=== PATIENT | female | born 1955 | race Caucasian/White ===

== ENCOUNTER → 2017-03-01 | Outpatient (CLI) | payer OTHER ==
[2017-03-01 08:46] LABS: Basophils % (A) 1 %; CH 30.8; CHCM 33.6; Eosinophils # (A) 0.1 k/uL (0-0.7); Eosinophils % (A) 3 %; HCT 45.1 % (34.0-46.0); HDW 2.52; HGB 14.9 gm/dL (11.4-16.0); Luc # (Auto) 0.11; Luc % (Auto) 3; Lymphocytes # (A) 1.3 k/uL (1.0-4.8); Lymphocytes % (A) 27 %; MCH 30.5 pg (25.0-35.0); MCV 92.4 fL (80.0-100.0); Monocytes # (A) 0.3 k/uL (0-1.0); Monocytes % (A) 7 %; Neutrophils # (A) 2.8 k/uL (1.3-7.7); Neutrophils % (A) 60 %; RBC 4.88 m/uL (3.80-5.40); RDW 13.8 % (11.5-15.5); WBC 4.6 k/uL (3.8-10.6); WBC (Perox) 4.48
[2017-03-01 09:09] LABS: ALT 46 U/L (9-52); AST 28 U/L (14-36); Alkaline Phosphatase 59 U/L (38-126); Anion Gap 12 mmol/L; Blood Urea Nitrogen 21 mg/dL (7-17); Calcium 9.9 mg/dL (8.4-10.2); Carbon Dioxide 29 mmol/L (22-30); Chloride 102 mmol/L (98-107); Cholesterol 180 mg/dL (<200); Glucose 94 mg/dL (74-99); HDL Cholesterol 65 mg/dL (40-60); Non-African American GFR(MDRD) >60 (>60 ml/min/1.73 sqM); Potassium 4.6 mmol/L (3.5-5.1); Sodium 143 mmol/L (137-145); Total Bilirubin 0.6 mg/dL (0.2-1.3); Total Protein 7.8 g/dL (6.3-8.2)
== END | disposition home or self-care (01) ==
LOC: LABWHC1 08:15
PROVIDERS: ATTEND Nurse Practitioner Primary Care
DX: Z00.00 Encounter for general adult medical examination without abnormal findings (principal)
CPT/HCPCS: 36415; 80053; 80061; 82306; 84443; 85025

== ENCOUNTER → 2017-06-07 | Outpatient (CLI) | payer OTHER ==
--- NOTE | 2017-06-08 09:08 | MM ---
Reason for exam: screening (asymptomatic). Last mammogram was performed 1 year and 4 months ago. History: Patient is postmenopausal. Family history of breast cancer in maternal grandmother. Physical Findings: A clinical breast exam by your physician is recommended on an annual basis and results should be correlated with mammographic findings. MG Screening Mammo w CAD Bilateral CC and MLO view(s) were taken. Prior study comparison: February 08, 2016, bilateral MG 3d screening mammo w/cad. December 10, 2014, bilateral MG screening mammo w CAD. The breast tissue is heterogeneously dense. This may lower the sensitivity of mammography. Finding: There are typically benign round calcifications. No significant changes in finding since December 10, 2014 and February 08, 2016. ASSESSMENT: Benign, BI-RAD 2 RECOMMENDATION: Routine screening mammogram of both breasts in 1 year.
== END | disposition home or self-care (01) ==
LOC: RADMAMWWP 13:44
PROVIDERS: ATTEND Obstetrics & Gynecology
DX: Z12.31 Encounter for screening mammogram for malignant neoplasm of breast (principal); Z80.3 Family history of malignant neoplasm of breast

== ENCOUNTER → 2018-07-09 | Outpatient (CLI) | payer OTHER ==
--- NOTE | 2018-07-12 17:08 | MM ---
Reason for exam: screening (asymptomatic). Last mammogram was performed 1 year and 1 month ago. History: Patient is postmenopausal. Family history of breast cancer in maternal grandmother. MG Screening Mammo w CAD Bilateral CC and MLO view(s) were taken. Prior study comparison: June 07, 2017, bilateral MG screening mammo w CAD. February 08, 2016, bilateral MG 3d screening mammo w/cad. The breast tissue is heterogeneously dense. This may lower the sensitivity of mammography. There are benign-appearing bilateral breast calcifications. Chronic nodularity in the left breast. No significant changes when compared with prior studies. ASSESSMENT: Benign, BI-RAD 2 RECOMMENDATION: Routine screening mammogram of both breasts in 1 year.
== END ==
LOC: RADMAMWWP 13:29
PROVIDERS: ATTEND Obstetrics & Gynecology
DX: Z12.31 Encounter for screening mammogram for malignant neoplasm of breast (principal); Z80.3 Family history of malignant neoplasm of breast
CPT/HCPCS: 77067

== ENCOUNTER → 2018-08-06 | Outpatient (CLI) | payer OTHER ==
[2018-08-06 19:25] LABS: Albumin 4.3 g/dL (3.80-4.90); Albumin/Globulin Ratio 2.05 (1.60-3.17); Anion Gap 6.2 mmol/L (4.00-12.00); Calcium 9.4 mg/dL (8.7-10.3); Carbon Dioxide 31.8 mmol/L (21.6-31.8); Globulin 2.1 g/dL (1.6-3.3); LDL Cholesterol,Calculated 78.4 mg/dL (0.0-131.0); Potassium 4.5 mmol/L (3.5-5.5); Total Bilirubin 0.6 mg/dL (0.2-1.2); Total Protein 6.4 g/dL (6.2-8.2); VLDL Calculation 21.6 mg/dL (5.00-40.00)
== END | disposition home or self-care (01) ==
LOC: LABWHC1 12:03
PROVIDERS: ATTEND Internal Medicine
DX: I10 Essential (primary) hypertension (principal)
CPT/HCPCS: 36415; 80053; 80061; 84443

== ENCOUNTER → 2019-07-31 | Outpatient (CLI) | payer OTHER ==
--- NOTE | 2019-07-31 15:51 | BD ---
EXAMINATION TYPE: Axial Bone Density DATE OF EXAM: 07/31/2019 COMPARISON: 12.10.2014 CLINICAL HISTORY: 64 YR OLD FEMALE....ICD-10 CODE: Z78.0 POST MENOPAUSAL Height: 64.25 Weight: 190 FRAX RISK QUESTIONS: History of Fracture in Adulthood: yes RISK FACTORS HISTORY OF: Active: yes Diet low in dairy products/other sources of calcium: yes Postmenopausal woman: YES, AT AGE 53 YRS OLD Hyperparathyroidism: no Adrenal Insufficiency: no MEDICATIONS: Additional Medications: BP MEDS, BABY ASPIRIN, Additional History: HYPERTENSION EXAM MEASUREMENTS: Bone mineral densitometry was performed using the [employer]. Bone mineral density as measured about the Lumbar spine is: ----- L1-L4(G/cm2): 1.095 T Score Values are as follows: ----- L1: 0.1 ----- L2: -1.0 ----- L3: -1.5 ----- L4: -0.5 ----- L1-L4: -0.7 Bone mineral density has: Increased 1.6% since study of: 12.10.2014 Bone mineral density about the R hip (g/cm2): 0.972 Bone mineral density about the L hip (g/cm2): 1.041 T Score values are as follows: -----R Neck: -0.5 -----L Neck: -0.5 -----R Total: -0.3 -----L Total: 0.3 Bone mineral density has: Decreased -3.7% since study of: 12.10.2014 FRAX%s: THERE IS A 11.2% CHANCE FOR A MAJOR OSTEOPOROTIC FX AND A 0.5% FOR HIP.....PROBABILITY FOR FX IN 10 YRS TIME IMPRESSION: Osteopenia (T Score between -2.5 and -1). There is slightly increased risk of fracture and the patient may be considered for treatment. Re-Screen 2-5 years. NOTE: T-SCORE=SD OF THE YOUNG ADULT MEAN.
--- NOTE | 2019-08-01 14:28 | MM ---
Reason for exam: screening (asymptomatic). Last mammogram was performed 1 year and 1 month ago. History: Patient is postmenopausal. Family history of breast cancer in maternal grandmother. Physical Findings: A clinical breast exam by your physician is recommended on an annual basis and results should be correlated with mammographic findings. MG 3D Screening Mammo W/Cad Bilateral CC and MLO view(s) were taken. Prior study comparison: July 09, 2018, bilateral MG screening mammo w CAD. June 07, 2017, bilateral MG screening mammo w CAD. The breast tissue is heterogeneously dense. This may lower the sensitivity of mammography. Stable benign calcifications. There is no discrete abnormality. No significant changes when compared with prior studies. ASSESSMENT: Benign, BI-RAD 2 RECOMMENDATION: Routine screening mammogram of both breasts in 1 year.
== END | disposition home or self-care (01) ==
LOC: RADMAMWWP 13:49
PROVIDERS: ATTEND Obstetrics & Gynecology
DX: Z12.31 Encounter for screening mammogram for malignant neoplasm of breast (principal); M85.80 Other specified disorders of bone density and structure, unspecified site; Z80.3 Family history of malignant neoplasm of breast; Z78.0 Asymptomatic menopausal state
CPT/HCPCS: 77063; 77067; 77080

== ENCOUNTER → 2019-11-07 | Outpatient (CLI) | payer OTHER ==
[2019-11-07 11:35] LABS: Basophils % (A) 1 %; Eosinophils # (A) 0.1 k/uL (0-0.7); Eosinophils % (A) 3 %; HCT 44.2 % (34.0-46.0); HGB 14.2 gm/dL (11.4-16.0); Lymphocytes # (A) 1.2 k/uL (1.0-4.8); Lymphocytes % (A) 33 %; MCH 29.6 pg (25.0-35.0); MCHC 32.2 g/dL (31.0-37.0); MCV 91.8 fL (80.0-100.0); Mean Platelet Volume 7.9; Monocytes # (A) 0.3 k/uL (0-1.0); Monocytes % (A) 8 %; Neutrophils % (A) 55 %; Platelet Count 240 k/uL (150-450); RBC 4.81 m/uL (3.80-5.40); RDW 12.9 % (11.5-15.5); WBC 3.7 k/uL (3.8-10.6)
[2019-11-07 17:28] LABS: % Iron Saturation 27.01 (12.00-45.00); African American GFR (CKD) 90.9 (60.0-200.0); Albumin 4.6 g/dL (3.80-4.90); Anion Gap 14.7 mmol/L (4.00-12.00); BUN/Creat Ratio 21.25 Ratio (12.00-20.00); Calcium 9.6 mg/dL (8.7-10.3); Carbon Dioxide 25.3 mmol/L (21.6-31.8); Chol/HDL Ratio 2.93; Globulin 2.3 g/dL (1.6-3.3); LDL Cholesterol,Calculated 81.2 mg/dL (0.0-131.0); Non-African American GFR(CKD) 78.5 (60.0-200.0); Potassium 4.2 mmol/L (3.5-5.5); Total Bilirubin 0.7 mg/dL (0.3-1.2); Total Protein 6.9 g/dL (6.2-8.2); VLDL Calculation 30.8 mg/dL (5.00-40.00)
[2019-11-07 17:37] LABS: Ferritin 42.6 ng/mL (10.0-291.0)
[2019-11-07 21:13] LABS: Hemoglobin A1C 5.7 % (4.0-6.0)
== END | disposition home or self-care (01) ==
LOC: LABWHC1 10:29
PROVIDERS: ATTEND Family Medicine
DX: Z00.00 Encounter for general adult medical examination without abnormal findings (principal); Z11.59 Encounter for screening for other viral diseases; G25.81 Restless legs syndrome
CPT/HCPCS: 36415; 80053; 80061; 82607; 82728; 83036; 83540; 83550; 83735; 84443; 85025; 86803

== ENCOUNTER → 2020-10-01 | Outpatient (CLI) | payer OTHER ==
--- NOTE | 2020-10-05 14:06 | MM ---
Reason for exam: screening (asymptomatic). Last mammogram was performed 1 year and 2 months ago. History: Patient is postmenopausal. Family history of breast cancer in maternal grandmother. Physical Findings: A clinical breast exam by your physician is recommended on an annual basis and results should be correlated with mammographic findings. MG 3D Screening Mammo W/Cad Bilateral CC and MLO view(s) were taken. Prior study comparison: July 31, 2019, bilateral MG 3d screening mammo w/cad. July 09, 2018, bilateral MG screening mammo w CAD. There are scattered fibroglandular densities. There is chronic nodularity in the right breast. Stable posterior grouped calcifications on the right breast. No significant changes when compared with prior studies. ASSESSMENT: Benign, BI-RAD 2 RECOMMENDATION: Routine screening mammogram of both breasts in 1 year.
== END | disposition home or self-care (01) ==
LOC: RADMAMWWP 15:01
PROVIDERS: ATTEND Obstetrics & Gynecology
DX: Z12.31 Encounter for screening mammogram for malignant neoplasm of breast (principal); Z80.3 Family history of malignant neoplasm of breast
CPT/HCPCS: 77063; 77067

== ENCOUNTER → 2021-10-25 | Outpatient (CLI) | payer MEDICARE ==
--- NOTE | 2021-10-25 14:28 | BD ---
EXAMINATION TYPE: Axial Bone Density DATE OF EXAM: 10/25/2021 COMPARISON: 07-31-2019 CLINICAL HISTORY: 66 years year old Female. ICD-10 CODE: M81.0 AGE RELATED OSTEOPOROSIS Height: 64IN Weight: 198 FRAX RISK QUESTIONS: History of Fracture in Adulthood: RT ANKLE FX Secondary Osteoporosis: 3. Menopause before 45: 53 RISK FACTORS HISTORY OF: Family History of Osteoporosis: YES MOM Active: YES Diet low in dairy products/other sources of calcium: YES Postmenopausal woman: 53 MEDICATIONS: Additional Medications: BP MEDS, VITAMIN D EXAM MEASUREMENTS: Bone mineral densitometry was performed using the [employer] System. Bone mineral density as measured about the Lumbar spine is: ----- L1-L4(G/cm2): 1.060 T Score Values are as follows: ----- L1: -1.3 ----- L2: -0.6 ----- L3: -1.4 ----- L4: -0.9 ----- L1-L4: -1.0 Bone mineral density has: Increased 0.5% since study of: 07-31-2019 Bone mineral density about the R hip (g/cm2): 0.925 Bone mineral density about the L hip (g/cm2): 0.981 T Score values are as follows: -----R Neck: -0.8 -----L Neck: -0.4 -----R Total: -0.2 -----L Total: -0.2 Bone mineral density has: Decreased -2.6% since study of: 07-31-2019 FRAX%s: The graph provided illustrates a 12.1% chance for a major osteoporotic fx and a 0.7% chance f or the hips probability for fx in 10 years time. IMPRESSION: Normal (Values between +1 and -1 indicate normal bone mass). Consider repeating this study in 5 year s or sooner if there is some new clinical indication. NOTE: T-SCORE=SD OF THE YOUNG ADULT MEAN.
--- NOTE | 2021-10-26 11:39 | MM ---
Reason for exam: screening (asymptomatic). Last mammogram was performed 1 year and 1 month ago. History: Patient is postmenopausal. Family history of breast cancer in maternal grandmother. Physical Findings: A clinical breast exam by your physician is recommended on an annual basis and results should be correlated with mammographic findings. MG 3D Screening Mammo W/Cad Bilateral CC and MLO view(s) were taken. Prior study comparison: October 01, 2020, bilateral MG 3d screening mammo w/cad. July 31, 2019, bilateral MG 3d screening mammo w/cad. Benign appearing bilateral calcifications. No significant changes when compared with prior studies. ASSESSMENT: Benign, BI-RAD 2 RECOMMENDATION: Routine screening mammogram of both breasts in 1 year.
== END | disposition home or self-care (01) ==
LOC: RADMAMWWP 12:37
PROVIDERS: ATTEND Family Medicine
DX: Z12.31 Encounter for screening mammogram for malignant neoplasm of breast (principal); M81.0 Age-related osteoporosis without current pathological fracture
CPT/HCPCS: 77063; 77067; 77080

== ENCOUNTER → 2022-10-26 | Outpatient (CLI) | payer MEDICARE ==
--- NOTE | 2022-10-26 14:01 | US ---
EXAMINATION TYPE: US transvaginal DATE OF EXAM: 10/26/2022 COMPARISON: NONE CLINICAL INDICATION: Female, 67 years old with history of R68.89 OTHER GENERAL SYMPTOMS AND SIGNS; en larged uterus TECHNIQUE: Transvaginal (TV EXAM MEASUREMENTS: Uterus: 6.4 x 3.5 x 4.2 cm Endometrial Stripe: .5 cm Left Ovary: 2.1 x 1.2 x 1.2 cm Multiple transvaginal grayscale and color Doppler ultrasound images of the pelvis were obtained. 1. Uterus: Anteverted echogenic area seen measuring 2.8 x 1.9 cm. 2. Endometrium: wnl 3. Right Ovary: Obscured by overlying bowel gas 4. Left Ovary: Anechoic area seen 1.4 x 1.2 x 1.0 cm. 5. Bilateral Adnexa: wnl 6. Posterior cul-de-sac: wnl Anteverted uterus with normal-appearing endometrium. Echogenic area within the uterus. Represent a ca lcified fibroid. Right ovary is a tear by overlying bowel gas. Left ovarian simple appearing cyst wit hout internal color flow. No free fluid. IMPRESSION: 1. No acute pelvic process. 2. Left ovarian simple appearing cyst measuring up to 1.4 cm. Follow-up ultrasound in one year is rec ommended. 3. Calcified fibroid changes of the uterus.
== END ==
LOC: RADUSWWP 12:52
PROVIDERS: ATTEND Obstetrics & Gynecology
DX: D25.9 Leiomyoma of uterus, unspecified (principal); N85.8 Other specified noninflammatory disorders of uterus
CPT/HCPCS: 76830

== ENCOUNTER → 2022-10-26 | Outpatient (CLI) | payer MEDICARE ==
--- NOTE | 2022-10-27 19:22 | MM ---
Reason for Exam: Screening (asymptomatic). Last screening mammogram was performed 12 month(s) ago. Patient History: Menarche at age 11. First Full-Term at age 27. Postmenopausal. Maternal grandmother had breast cancer, age 70. Risk Values: Marilu 5 year model risk: 2.0%. NCI Lifetime model risk: 7.3%. Prior Study Comparison: 07/31/2019 Bilateral Screening Mammogram, [facility]. 10/01/2020 Bilateral Screening Mammogram, [facility]. 10/25/2021 Bilateral Screening Mammogram, [facility]. Tissue Density: There are scattered fibroglandular densities. Findings: Analyzed By CAD. There is no suspicious group of microcalcifications or new suspicious mass in either breast. Overall Assessment: Benign, BI-RAD 2 Management: Screening Mammogram of both breasts in 1 year. . Patient should continue monthly self-breast exams. A clinical breast exam by your physician is recommended on an annual basis. This exam should not preclude additional follow-up of suspicious palpable abnormalities. Note on Marilu scores and lifetime risk: 1. A Marilu score greater than 3% is considered moderate risk. If this is the case, consider specialist referral to assess eligibility for a risk reducing agent. 2. If overall lifetime risk for the development of breast cancer is 20% or higher, the patient may qualify for future screening with alternating mammogram and breast MRI. Electronically signed and approved by: Sierra Mina M.D. Radiologist
== END | disposition home or self-care (01) ==
LOC: RADMAMWWP 12:53
PROVIDERS: ATTEND Family Medicine
DX: Z12.31 Encounter for screening mammogram for malignant neoplasm of breast (principal); Z78.0 Asymptomatic menopausal state; Z80.3 Family history of malignant neoplasm of breast
CPT/HCPCS: 77063; 77067

== ENCOUNTER 2023-05-13 09:12 | Emergency (ER) | payer MEDICARE ==
[2023-05-13 09:54] VITALS: TEMP 98.3
[2023-05-13 10:18] LABS: Basophils % (A) 0 %; Eosinophils # (A) 0.1 k/uL (0-0.7); Eosinophils % (A) 1 %; HCT 42.8 % (34.0-46.0); HGB 13.9 gm/dL (11.4-16.0); Lymphocytes % (A) 8 %; MCH 29.6 pg (25.0-35.0); MCHC 32.4 g/dL (31.0-37.0); MCV 91.3 fL (80.0-100.0); Monocytes # (A) 0.5 k/uL (0-1.0); Monocytes % (A) 4 %; Neutrophils # (A) 9.7 k/uL (1.3-7.7); Neutrophils % (A) 86 %; Platelet Count 447 k/uL (150-450); RBC 4.69 m/uL (3.80-5.40); RDW 13.4 % (11.5-15.5); WBC 11.3 k/uL (3.8-10.6)
[2023-05-13 10:35] LABS: ALT 33 U/L (4-34); AST 34 U/L (14-36); African American GFR (CKD) >90 (>60 ml/min/1.73 sqM); Albumin 3.9 g/dL (3.5-5.0); Alkaline Phosphatase 65 U/L (38-126); Amylase 35 U/L (30-110); Anion Gap 12 mmol/L; Blood Urea Nitrogen 17 mg/dL (7-17); Calcium 9.3 mg/dL (8.4-10.2); Carbon Dioxide 25 mmol/L (22-30); Chloride 101 mmol/L (98-107); Glucose 104 mg/dL (74-99); Lipase 67 U/L (23-300); Non-African American GFR(CKD) >90 (>60 ml/min/1.73 sqM); Potassium 4.6 mmol/L (3.5-5.1); Sodium 138 mmol/L (137-145); Total Bilirubin 0.6 mg/dL (0.2-1.3); Total Protein 6.9 g/dL (6.3-8.2)
[2023-05-13 10:37] LABS: Appearance,Urine Clear (Clear); Bilirubin,Urine Negative (Negative); Blood,Urine Negative (Negative); Color,Urine Yellow; Glucose,Urine (UA) Negative (Negative); Ketones,Urine 1+ (Negative); Leukocyte Esterase,Urine Negative (Negative); Mucus,Urine Many /hpf; Nitrite,Urine Negative (Negative); Protein,Urine 1+ (Negative); RBC,Urine 1 /hpf (0-5); Squamous Epithelial Cell,Urine 1 /hpf (0-4); Urobilinogen,Urine <2.0 mg/dL (<2.0); WBC,Urine 1 /hpf (0-5)
--- NOTE | 2023-05-13 11:35 | ED ---
Abdominal Pain HPI - General Source: patient, RN notes reviewed Mode of arrival: ambulatory Limitations: no limitations <Laurel Krishna - Last Filed: 05/13/23 11:38> - General Source: patient Mode of arrival: ambulatory Limitations: no limitations <Austin Wright - Last Filed: 05/13/23 16:17> - General Chief Complaint: Abdominal Pain Stated Complaint: abd tenderness-sent by PCP Time Seen by Provider: 05/13/23 11:33 - History of Present Illness Initial Comments: patient is a 68-year-old female presented ER chief complaint of abdominal pain. Patient states she has recently been treated with steroids and antibiotics for pneumonia. Patient denies any fevers or chills. (Laurel Krishna) 68-year-old female presents to the emergency room for a chief complaint of abdominal discomfort. Patient states over the past week she has felt abdominal distention and bloating. She has some minimal pain in the lower abdomen. She has not had any fevers or chills. She has also had a cough for about 6 weeks and was recently treated for pneumonia. (Austin Wright) - Related Data Home Medications Medication Instructions Recorded Confirmed Ascorbic Acid [Vitamin C] 1,000 mcg PO DAILY 10/25/22 10/25/22 Aspirin [Children's Aspirin] 81 mg PO DAILY 10/25/22 10/25/22 Cholecalciferol (Vitamin D3) 50 mg PO DAILY 10/25/22 10/25/22 [Vitamin D3 (50 Mcg = 2000 Iu) Chew Tab] Valsartan 80 mg PO DAILY 10/25/22 10/25/22 Zinc Gluconate [Zinc] 50 mg PO DAILY 10/25/22 10/25/22 Allergies Allergy/AdvReac Type Severity Reaction Status Date / Time Penicillins Allergy Rash/Hives Verified 05/13/23 09:29 Review of Systems ROS Other: All systems not noted in ROS Statement are negative. <Laurel Krishna - Last Filed: 05/13/23 11:38> ROS Other: All systems not noted in ROS Statement are negative. <Austin Wright - Last Filed: 05/13/23 16:17> ROS Statement: Those systems with pertinent positive or pertinent negative responses have been documented in the HPI. Past Medical History Past Medical History: Hypertension, Sleep Apnea/CPAP/BIPAP Additional Past Medical History / Comment(s): Osteopenia. 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 History of Any Multi-Drug Resistant Organisms: None Reported Past Surgical History: Orthopedic Surgery Additional Past Surgical History / Comment(s): R ANKLE SURGERY. Colonoscopy 2015(next after 10yr). Past Anesthesia/Blood Transfusion Reactions: No Reported Reaction Past Psychological History: No Psychological Hx Reported Smoking Status: Never smoker Past Alcohol Use History: None Reported Past Drug Use History: None Reported - Past Family History Mother Family Medical History: Hypertension Father Family Medical History: Cancer, Diabetes Mellitus, Myocardial Infarction (CT) Additional Family Medical History / Comment(s): Skin cancer. <Laurel Krishna - Last Filed: 05/13/23 11:38> General Exam Limitations: no limitations <Laurel Krishna - Last Filed: 05/13/23 11:38> General appearance: alert, in no apparent distress Head exam: Present: atraumatic Eye exam: Present: normal appearance, PERRL, EOMI. Absent: scleral icterus, conjunctival injection ENT exam: Present: normal exam, mucous membranes moist Neck exam: Present: normal inspection, full ROM. Absent: tenderness Respiratory exam: Present: normal lung sounds bilaterally. Absent: respiratory distress, wheezes Cardiovascular Exam: Present: regular rate, normal rhythm, normal heart sounds GI/Abdominal exam: Present: distended, tenderness (minimal tenderness) Neurological exam: Present: alert <Austin Wright - Last Filed: 05/13/23 16:17> - General Exam Comments Initial Comments: Visual Physical Exam Vital signs reviewed General: Well-appearing, nontoxic, no acute distress. Head: Normocephalic, atraumatic Eyes: PERRLA, EOMI ENT: Airway patent Chest: Nonlabored breathing Skin: No visual rash, normal skin tone Neuro: Alert and oriented 3 Musculoskeletal: No gross abnormalities (Laurel Krishna) Course Vital Signs 05/13/23 09:24 Temperature 98.3 F Pulse Rate 111 H Respiratory 20 Rate Blood Pressure 118/77 O2 Sat by Pulse 94 L Oximetry Medical Decision Making - Lab Data Result diagrams: 05/13/23 09:47 05/13/23 09:47 <Laurel Krishna - Last Filed: 05/13/23 11:38> - Lab Data Result diagrams: 05/13/23 09:47 05/13/23 09:47 <KyleAustin - Last Filed: 05/13/23 16:17> - Medical Decision Making I performed the quick note portion of the exam. Electronically signed by Laurel Krishna PA-C (Laurel Krishna) Vitals are stable. HPI physical exam is documented. She does have significant abdominal distention. CBC CMP unremarkable. Urinalysis negative for infection. CT abdomen and pelvis shows likely metastatic ovarian cancer with omental caking and moderate ascites. Discussed with attending at [facility]. Does not recommend transferring as long as patient is stable. Recommend she follow up with her ACOUSTICAL ENGINEER Dr. Saldivar with rapid follow-up next week to be referred. Discussed with patient that if her abdominal pain becomes severe or she has any other issues she said either return to the ER or present to a facility with floor scraper-onc. Was pt. sent in by a medical professional or institution (LEONIE Adam, DOLL EYE SETTER, urgent care, hospital, or assisted...) When possible be specific @ -family () Did you speak to anyone other than the patient for history (EMS, parent, family, police, friend...)? What history was obtained from this source @ -[No] Did you review nursing and triage notes (agree or disagree)? Why? @ -[I reviewed and agree with nursing and triage notes] Were old charts reviewed (outside hosp., previous admission, EMS record, old EKG, old radiological studies, urgent care reports/EKG's, assisted records)? Report findings @ -[No old charts were reviewed] Differential Diagnosis (chest pain, altered mental status, abdominal pain women, abdominal pain men, vaginal bleeding, weakness, fever, dyspnea, syncope, headache, dizziness, GI bleed, back pain, seizure, CVA, palpatations, mental health)? @ -Differential Abdominal Pain Women: Appendicitis, Cholecystitis, diverticulosis, ischemic bowel, pancreatitis, hepatitis, UTI, gastroenteritis, AAA, incarcerated hernia, bowel obstruction, constipation, inflammatory bowel, hepatitis, peptic ulcer disease, splenic infarction, perforated viscus, vulvitis, ovarian torsion, PID, kidney stone, placenta abruption, this is not meant to be an all-inclusive list EKG interpreted by me (3pts min.). @ -none done X-rays interpreted by me (1pt min.). @ -[None done] CT interpreted by me (1pt min.). @ -Multiple ovarian masses concerning for ovarian cancer U/S interpreted by me (1pt. min.). @ -[None done] What testing was considered but not performed or refused? (CT, X-rays, U/S, labs)? Why? @ -[None] What meds were considered but not given or refused? Why? @ -[None] Did you discuss the management of the patient with other professionals (professionals i.e. , PA, DOLL EYE SETTER, lab, RT, psych nurse, social secretary, rac specialist, teacher, physics technical officer, case repairer)? Give summary @ -[facility] Was smoking cessation discussed for >3mins.? @ -[No] Was critical care preformed (if so, how long)? @ -[No] Were there social determinants of health that impacted care today? How? (Homelessness, low income, unemployed, alcoholism, drug addiction, transportation, low edu. Level, literacy, decrease access to med. care, [facility], rehab)? @ -[No] Was there de-escalation of care discussed even if they declined (Discuss DNR or withdrawal of care, Hospice)? DNR status @ -[No] What co-morbidities impacted this encounter? (DM, HTN, Smoking, COPD, CAD, Can cer, CVA, ARF, Chemo, Hep., AIDS, mental health diagnosis, sleep apnea, morbid obesity)? @ -[None] Was patient admitted / discharged? Hospital course, mention meds given and route, prescriptions, significant lab abnormalities, going to OR and other pertinent info. @ -Vitals are stable. HPI physical exam is documented. She does have significant abdominal distention. CBC CMP unremarkable. Urinalysis negative for infection. CT abdomen and pelvis shows likely metastatic ovarian cancer with omental caking and moderate ascites. Discussed with attending at [facility]. Does not recommend transferring as long as patient is stable. Recommend she follow up with her ACOUSTICAL ENGINEER Dr. Saldivar with rapid follow-up next week to be referred. Discussed with patient that if her abdominal pain becomes severe or she has any other issues she said either return to the ER or present to a facility with floor scraper-onc. Undiagnosed new problem with uncertain prognosis? @ -Yes Drug Therapy requiring intensive monitoring for toxicity (Heparin, Nitro, Insulin, Cardizem)? @ -[No] Were any procedures done? @ -[No] Diagnosis/symptom? @ -ovarian mass, ascites Acute, or Chronic, or Acute on Chronic? @ -acute Uncomplicated (without systemic symptoms) or Complicated (systemic symptoms)? @ -complicated Side effects of treatment? @ -[No] Exacerbation, Progression, or Severe Exacerbation? @ -[No] Poses a threat to life or bodily function? How? (Chest pain, USA, CT, pneumonia, PE, COPD, DKA, ARF, appy, cholecystitis, CVA, Diverticulitis, Homicidal, Suicidal, threat to staff... and all critical care pts) @ -yes, cancer (Austin Wright) - Lab Data Lab Results 05/13/23 05/13/23 05/13/23 Range/Units 09:47 09:47 09:47 WBC 11.3 H (3.8-10.6) k/uL RBC 4.69 (3.80-5.40) m/uL Hgb 13.9 (11.4-16.0) gm/dL Hct 42.8 (34.0-46.0) % MCV 91.3 (80.0-100.0) fL MCH 29.6 (25.0-35.0) pg MCHC 32.4 (31.0-37.0) g/dL RDW 13.4 (11.5-15.5) % Plt Count 447 (150-450) k/uL MPV 8.0 Neutrophils % 86 % Lymphocytes % 8 % Monocytes % 4 % Eosinophils % 1 % Basophils % 0 % Neutrophils # 9.7 H (1.3-7.7) k/uL Lymphocytes # 1.0 (1.0-4.8) k/uL Monocytes # 0.5 (0-1.0) k/uL Eosinophils # 0.1 (0-0.7) k/uL Basophils # 0.0 (0-0.2) k/uL Sodium 138 (137-145) mmol/L Potassium 4.6 (3.5-5.1) mmol/L Chloride 101 (98-107) mmol/L Carbon Dioxide 25 (22-30) mmol/L Anion Gap 12 mmol/L BUN 17 (7-17) mg/dL Creatinine 0.63 (0.52-1.04) mg/dL Est GFR (CKD-EPI)AfAm >90 (>60 ml/min/1.73 sqM) Est GFR (CKD-EPI)NonAf >90 (>60 ml/min/1.73 sqM) Glucose 104 H (74-99) mg/dL Plasma Lactic Acid Jameel (0.7-2.0) mmol/L Calcium 9.3 (8.4-10.2) mg/dL Total Bilirubin 0.6 (0.2-1.3) mg/dL AST 34 (14-36) U/L ALT 33 (4-34) U/L Alkaline Phosphatase 65 (38-126) U/L Total Protein 6.9 (6.3-8.2) g/dL Albumin 3.9 (3.5-5.0) g/dL Amylase 35 (30-110) U/L Lipase 67 (23-300) U/L Urine Color Yellow Urine Appearance Clear (Clear) Urine pH 6.0 (5.0-8.0) Ur Specific [place] 1.020 (1.001-1.035) Urine Protein 1+ H (Negative) Urine Glucose (UA) Negative (Negative) Urine Ketones 1+ H (Negative) Urine Blood Negative (Negative) Urine Nitrite Negative (Negative) Urine Bilirubin Negative (Negative) Urine Urobilinogen <2.0 (<2.0) mg/dL Ur Leukocyte Esterase Negative (Negative) Urine RBC 1 (0-5) /hpf Urine WBC 1 (0-5) /hpf Ur Squamous Epith Cells 1 (0-4) /hpf Urine Mucus Many H (None) /hpf 05/13/23 Range/Units 09:47 WBC (3.8-10.6) k/uL RBC (3.80-5.40) m/uL Hgb (11.4-16.0) gm/dL Hct (34.0-46.0) % MCV (80.0-100.0) fL MCH (25.0-35.0) pg MCHC (31.0-37.0) g/dL RDW (11.5-15.5) % Plt Count (150-450) k/uL MPV Neutrophils % % Lymphocytes % % Monocytes % % Eosinophils % % Basophils % % Neutrophils # (1.3-7.7) k/uL Lymphocytes # (1.0-4.8) k/uL Monocytes # (0-1.0) k/uL Eosinophils # (0-0.7) k/uL Basophils # (0-0.2) k/uL Sodium (137-145) mmol/L Potassium (3.5-5.1) mmol/L Chloride (98-107) mmol/L Carbon Dioxide (22-30) mmol/L Anion Gap mmol/L BUN (7-17) mg/dL Creatinine (0.52-1.04) mg/dL Est GFR (CKD-EPI)AfAm (>60 ml/min/1.73 sqM) Est GFR (CKD-EPI)NonAf (>60 ml/min/1.73 sqM) Glucose (74-99) mg/dL Plasma Lactic Acid Jameel 1.3 (0.7-2.0) mmol/L Calcium (8.4-10.2) mg/dL Total Bilirubin (0.2-1.3) mg/dL AST (14-36) U/L ALT (4-34) U/L Alkaline Phosphatase (38-126) U/L Total Protein (6.3-8.2) g/dL Albumin (3.5-5.0) g/dL Amylase (30-110) U/L Lipase (23-300) U/L Urine Color Urine Appearance (Clear) Urine pH (5.0-8.0) Ur Specific [place] (1.001-1.035) Urine Protein (Negative) Urine Glucose (UA) (Negative) Urine Ketones (Negative) Urine Blood (Negative) Urine Nitrite (Negative) Urine Bilirubin (Negative) Urine Urobilinogen (<2.0) mg/dL Ur Leukocyte Esterase (Negative) Urine RBC (0-5) /hpf Urine WBC (0-5) /hpf Ur Squamous Epith Cells (0-4) /hpf Urine Mucus (None) /hpf Disposition <Laurel Krishna - Last Filed: 05/13/23 11:38> Is patient prescribed a controlled substance at d/c from ED?: No Time of Disposition: 16:15 <Austin Wright - Last Filed: 05/13/23 16:17> Clinical Impression: Ovarian mass, Ascites Disposition: HOME SELF-CARE Condition: Fair Instructions (If sedation given, give patient instructions): Acute Abdominal Pain (ED), Ascites (ED) Additional Instructions: Please follow up with Dr. Pizarro first thing next week. If symptoms worsen either return to this hospital or to a facility with gynecology oncology Referrals: Aris Gee MD [Primary Care Provider] - 1-2 days Stefan Pizarro MD [STAFF PHYSICIAN] - 1-2 days
--- NOTE | 2023-05-13 12:27 | CT ---
EXAMINATION TYPE: CT abdomen pelvis w con DATE OF EXAM: 05/13/2023 COMPARISON: Ultrasound 10/26/2022 HISTORY: epigastric pain CT DLP: 1305.9 mGycm CONTRAST: CT scan of the abdomen and pelvis is performed without Oral Contrast and with IV Contrast, patient in jected with 100 mL of Isovue 300. FINDINGS: LUNG BASES-: No visible nodule. No infiltrate. LIVER/GB: No calcified gallstones. Cystic lesions throughout the liver with the largest cyst noted within the right hepatic lobe measuring 8.1 cm in greatest dimension. Cystic metastatic lesions are not excluded. No space occupying hepatic lesion. Biliary tree is of normal caliber. PANCREAS: No inflammation. No distinct mass. SPLEEN: No splenic enlargement. No lesion seen. ADRENALS: No nodule. No thickening. KIDNEYS/BLADDER: No hydronephrosis. No nephrolithiasis. No distinct renal mass. Urinary bladder g rossly unremarkable. BOWEL: Normal appendix. Normal bowel caliber. No inflammation. Small bowel wall thickening without obstructive change. Colon is of normal caliber. Sigmoid diverticulosis without diverticulitis. GENITAL ORGANS: There is a multiseptated thick-walled cystic mass left adnexa measuring 6.6 x 6.4 cm felt to reflect ovarian malignancy until proven otherwise. Calcified uterine leiomyomata. Similar phillip earing right ovarian masses noted measuring 6.1 x 5.5 cm. There is moderate ascites throughout the ab domen and pelvis. There is nodular thickening of the omentum felt to reflect omental cake. Cystic mas s anterior to the left psoas musculature at the level of the pelvic inlet. LYMPH NODES: No greater than 1cm abdominal or pelvic lymph nodes are appreciated. AORTA: No significant abnormality. OSSEOUS STRUCTURES: No significant abnormality is seen. OTHER: No significant additional abnormality is seen. IMPRESSION: 1. 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
[2023-05-13 16:15] VITALS: BP 104/66; PULSE 103; RESP 16
[2023-05-13] MEDS ORDERED: ACET/COD 300 MG/30 MG STARTER PACK 6 TAB BTL PO STA (16:37)
--- NOTE | 2023-05-15 09:38 | P.PN ---
Progress Note - Text Progress Note Date: 05/15/23 The patient called saying she was seen in the [facility] at [facility] on 05/13/23 for new onset abdominal pain and abdominal distention which started about 1 week ago. She had been dealing with upper respiratory symptoms before that for a few weeks. In the EC she went for a CT scan of the abdomen and pelvis which shows bilateral thick walled complex ovarian masses each 6-7 cm. There is moderate ascites and omental thickening. I have discussed the findings with the patient and her by phone today, 05/15/23. This was compared to the benign appearing findings from her 10/26/22 pelvic ultrasound which showed a 1.4 cm simple ovarian cyst and a 2.8 cm calcified fibroid. Impression: Findings suspicious for ovarian carcinoma Plan: Referral to gynecologic oncologist for probable surgery with possible staging and debulking. She will be referred to Dr. Sami Kemp.
== END 2023-05-13 16:51 | disposition home or self-care (01) ==
LOC: EC 09:12
DX: N83.9 Noninflammatory disorder of ovary, fallopian tube and broad ligament, unspecified (principal); R18.8 Other ascites; I10 Essential (primary) hypertension; G47.30 Sleep apnea, unspecified; Z88.0 Allergy status to penicillin
CPT/HCPCS: 36415; 93005; 80053; 82150; 83605; 83690; 85025; 81001; 74177; 99284; Q9967

== ENCOUNTER 2023-06-28 14:14 | Emergency (ER) | payer MEDICARE ==
[2023-06-28] MEDS ORDERED: ACETAMINOPHEN IV (For NPO) 1,000 MG in EMPTY BAG 1 BAG IVPB STA (14:35)
[2023-06-28] MEDS ORDERED: KETOROLAC 15 MG/ML 1 ML VIAL IVP STA (14:35)
[2023-06-28] MEDS ORDERED: SODIUM CHLORIDE 0.9% 1,000 ML IV STA ×3 (14:35→19:19)
--- NOTE | 2023-06-28 14:39 | ED ---
Fever HPI - General Chief Complaint: Fever Stated Complaint: Fever, Nausea Time Seen by Provider: 06/28/23 14:32 Source: patient, RN notes reviewed, old records reviewed Mode of arrival: ambulatory Limitations: no limitations - History of Present Illness Initial Comments: This is a 68-year-old female for recent hysterectomy coming in for evaluation fever today. Patient has had a persistent fever presented to the ER with abdominal pain. Patient's pain is severe with the postoperative pain is also been severe. Patient has recent diagnosis of cancer which is blood provoke a hysterectomy cancer with metastasis. Patient is very persistent symptoms since hospital admission for fever started last night MD Complaint: fever, malaise, weakness -: days(s) Temperature Source: subjective Context: sick contacts, multiple patients with similar symptoms Associated Symptoms: denies other symptoms Treatments Prior to Arrival: Acetaminophen, Ibuprofen - Related Data Home Medications Medication Instructions Recorded Confirmed Ascorbic Acid [Vitamin C] 1,000 mcg PO DAILY 10/25/22 10/25/22 Aspirin [Children's Aspirin] 81 mg PO DAILY 10/25/22 10/25/22 Cholecalciferol (Vitamin D3) 50 mg PO DAILY 10/25/22 10/25/22 [Vitamin D3 (50 Mcg = 2000 Iu) Chew Tab] Valsartan 80 mg PO DAILY 10/25/22 10/25/22 Zinc Gluconate [Zinc] 50 mg PO DAILY 10/25/22 10/25/22 Previous Rx's Medication Instructions Recorded Cephalexin [Keflex] 500 mg PO Q6HR #40 cap 06/28/23 Allergies Allergy/AdvReac Type Severity Reaction Status Date / Time Penicillins Allergy Rash/Hives Verified 06/28/23 14:29 Review of Systems ROS Statement: Those systems with pertinent positive or pertinent negative responses have been documented in the HPI. ROS Other: All systems not noted in ROS Statement are negative. Past Medical History Past Medical History: Hypertension, Sleep Apnea/CPAP/BIPAP Additional Past Medical History / Comment(s): Osteopenia. 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 History of Any Multi-Drug Resistant Organisms: None Reported Past Surgical History: Hysterectomy, Orthopedic Surgery Additional Past Surgical History / Comment(s): R ANKLE SURGERY. Colonoscopy 2014(next after 10yr). Past Anesthesia/Blood Transfusion Reactions: No Reported Reaction Past Psychological History: No Psychological Hx Reported Smoking Status: Never smoker Past Alcohol Use History: None Reported Past Drug Use History: None Reported - Past Family History Mother Family Medical History: Hypertension Father Family Medical History: Cancer, Diabetes Mellitus, Myocardial Infarction (NM) Additional Family Medical History / Comment(s): Skin cancer. General Exam Limitations: no limitations General appearance: alert, in no apparent distress Head exam: Present: atraumatic, normocephalic, normal inspection Eye exam: Present: normal appearance, PERRL, EOMI. Absent: scleral icterus, conjunctival injection, periorbital swelling ENT exam: Present: normal exam, mucous membranes moist Neck exam: Present: normal inspection. Absent: tenderness, meningismus, lymphadenopathy Respiratory exam: Present: normal lung sounds bilaterally. Absent: respiratory distress, wheezes, rales, rhonchi, stridor Cardiovascular Exam: Present: regular rate, normal rhythm, normal heart sounds. Absent: systolic murmur, diastolic murmur, rubs, gallop, clicks GI/Abdominal exam: Present: soft, normal bowel sounds. Absent: distended, tenderness, guarding, rebound, rigid Extremities exam: Present: normal inspection, full ROM, normal capillary refill. Absent: tenderness, pedal edema, joint swelling, calf tenderness Back exam: Present: normal inspection Neurological exam: Present: alert, oriented X3, CN II-XII intact Psychiatric exam: Present: normal affect, normal mood Skin exam: Present: warm, dry, intact, normal color. Absent: rash Course Vital Signs 06/28/23 06/28/23 06/28/23 14:26 14:29 18:45 Temperature 99 F 98.7 F 97.9 F Pulse Rate 104 H 82 86 Respiratory 18 18 16 Rate Blood Pressure 142/81 130/82 136/80 O2 Sat by Pulse 93 L 97 97 Oximetry - Reevaluation(s) Reevaluation #1: Medical records reviewed Reevaluation #2: Patient symptoms improved Reevaluation #3: Patient informed results questions answered Reevaluation #4: Was pt. sent in by a medical professional or institution (, PA, PORTFOLIO ADMINISTRATOR, urgent care, hospital, or long term...) When possible be specific @ -no Did you speak to anyone other than the patient for history (EMS, parent, family, police, friend...)? What history was obtained from this source @ -no Did you review nursing and triage notes (agree or disagree)? Why? @ -agree Are old charts reviewed (outside hosp., previous admission, EMS record, old EKG, old radiological studies, urgent care reports/EKG's, long term records)? Report findings @ -yes Differential Diagnosis (chest pain, altered mental status, abdominal pain women, abdominal pain men, vaginal bleeding, weakness, fever, dyspnea, syncope, headache, dizziness, GI bleed, back pain, seizure, CVA, palpatations, mental h ealth, musculoskeletal)? @ -prior EKG interpreted by me (3pts min.). @ -yes X-rays interpreted by me (1pt min.). @ -yes negative for acute disease CT interpreted by me (1pt min.). @ -yes negative for acute disease U/S interpreted by me (1pt. min.). @ -no What testing was considered but not performed or refused? (CT, X-rays, U/S, labs)? Why? @ -none What meds were considered but not given or refused? Why? @ -none Did you discuss the management of the patient with other professionals (prof gilberts i.e. , PA, PORTFOLIO ADMINISTRATOR, lab, RT, psych nurse, socially responsible investment adviser, vp product, teacher, financial services officer, telephonic case manager)? Give summary @ -no Was smoking cessation discussed for >3mins.? @ -no Were there social determinants of health that impacted care today? How? (Homelessness, low income, unemployed, alcoholism, drug addiction, transportation, low edu. Level, literacy, decrease access to med. care, group home, rehab)? @ -none Was there de-escalation of care discussed even if they declined (Discuss DNR or withdrawal of care, Hospice)? DNR status @ -no What co-morbidities impacted this encounter? (DM, HTN, Smoking, COPD, CAD, Cancer, CVA, ARF, Chemo, Hep., AIDS, mental health diagnosis, sleep apnea, mor bid obesity)? @ -none Was patient admitted / discharged? Hospital course, mention meds given and ro altno, prescriptions, significant lab abnormalities, going to OR and other pertinent info. @ - 68 female to the ER today for evaluation of a fever. Patient has not been feeling well does have urinary tract infection here in the emergency prior. Patient will be given antibiotics here in the ER can be discharged home Discharge Was critical care preformed (if so, how long)? @ -no Undiagnosed new problem with uncertain prognosis? @ -no Drug Therapy requiring intensive monitoring for toxicity (Heparin, Nitro, Insulin, Cardizem)? @ -no Were any procedures done? @ -no Diagnosis/symptom? @ -UTI and fever Acute, or Chronic, or Acute on Chronic? @ -Acute Uncomplicated (without systemic symptoms) or Complicated (systemic symptoms)? @ -Complicated Side effects of treatment? @ -no Exacerbation, Progression, or Severe Exacerbation? @ -exacerbation Poses a threat to life or bodily function? How? (Chest pain, USA, NM, pneumonia, PE, COPD, DKA, ARF, appy, cholecystitis, CVA, Diverticulitis, Homicidal, Suicidal, threat to staff... and all critical care pts) @ -yes: Does have UTI with fever, sepsis Reevaluation #5: Differential Fever: Pneumonia, viral URI, endocarditis, myocarditis, pericarditis, otitis, sinusitis, peritonsillar Abscess, retropharyngeal Abscess, epiglottitis, peritonitis, appendicitis, Louise cystitis, diverticulitis, hepatitis, colitis, UTI, PID, TOA, pyelonephritis, prostatitis, epididymitis, meningitis, encephalitis, pulmonary embolism, CVA, thyroid storm, pancreatitis, adrenal crisis, cavernous sinus thrombosis, this is not meant to be an all-inclusive list. Medical Decision Making - Medical Decision Making 68 female to the ER today for evaluation of a fever. Patient has not been feeling well does have urinary tract infection here in the emergency prior. Patient will be given antibiotics here in the ER can be discharged home - Lab Data Result diagrams: 06/28/23 14:38 06/28/23 14:38 Lab Results 06/28/23 06/28/23 06/28/23 Range/Units 14:38 14:38 14:38 WBC 12.9 H (3.8-10.6) k/uL RBC 3.28 L (3.80-5.40) m/uL Hgb 9.0 L D (11.4-16.0) gm/dL Hct 28.6 L (34.0-46.0) % MCV 87.3 (80.0-100.0) fL MCH 27.6 (25.0-35.0) pg MCHC 31.6 (31.0-37.0) g/dL RDW 14.5 (11.5-15.5) % Plt Count 939 H D (150-450) k/uL MPV 7.6 Neutrophils % 87 % Lymphocytes % 6 % Monocytes % 6 % Eosinophils % 0 % Basophils % 0 % Neutrophils # 11.1 H (1.3-7.7) k/uL Lymphocytes # 0.8 L (1.0-4.8) k/uL Monocytes # 0.8 (0-1.0) k/uL Eosinophils # 0.0 (0-0.7) k/uL Basophils # 0.0 (0-0.2) k/uL Hypochromasia Moderate Sodium 135 L (137-145) mmol/L Potassium 3.5 (3.5-5.1) mmol/L Chloride 93 L (98-107) mmol/L Carbon Dioxide 32 H (22-30) mmol/L Anion Gap 10 mmol/L BUN 11 (7-17) mg/dL Creatinine 0.45 L (0.52-1.04) mg/dL Est GFR (CKD-EPI)AfAm >90 (>60 ml/min/1.73 sqM) Est GFR (CKD-EPI)NonAf >90 (>60 ml/min/1.73 sqM) Glucose 103 H (74-99) mg/dL Plasma Lactic Acid Jameel 1.2 (0.7-2.0) mmol/L Calcium 8.5 (8.4-10.2) mg/dL Total Bilirubin 0.8 (0.2-1.3) mg/dL AST 30 (14-36) U/L ALT 16 (4-34) U/L Alkaline Phosphatase 154 H (38-126) U/L Total Protein 6.1 L (6.3-8.2) g/dL Albumin 2.8 L (3.5-5.0) g/dL Amylase 36 (30-110) U/L Lipase 34 (23-300) U/L Urine Color Urine Appearance (Clear) Urine pH (5.0-8.0) Ur Specific [place] (1.001-1.035) Urine Protein (Negative) Urine Glucose (UA) (Negative) Urine Ketones (Negative) Urine Blood (Negative) Urine Nitrite (Negative) Urine Bilirubin (Negative) Urine Urobilinogen (<2.0) mg/dL Ur Leukocyte Esterase (Negative) Urine RBC (0-5) /hpf Urine WBC (0-5) /hpf Urine WBC Clumps (None) /hpf Urine Mucus (None) /hpf Influenza Type A (PCR) (Not Detectd) Influenza Type B (PCR) (Not Detectd) RSV (PCR) (Not Detectd) SARS-CoV-2 (PCR) (Not Detectd) 06/28/23 06/28/23 Range/Units 15:01 17:06 WBC (3.8-10.6) k/uL RBC (3.80-5.40) m/uL Hgb (11.4-16.0) gm/dL Hct (34.0-46.0) % MCV (80.0-100.0) fL MCH (25.0-35.0) pg MCHC (31.0-37.0) g/dL RDW (11.5-15.5) % Plt Count (150-450) k/uL MPV Neutrophils % % Lymphocytes % % Monocytes % % Eosinophils % % Basophils % % Neutrophils # (1.3-7.7) k/uL Lymphocytes # (1.0-4.8) k/uL Monocytes # (0-1.0) k/uL Eosinophils # (0-0.7) k/uL Basophils # (0-0.2) k/uL Hypochromasia Sodium (137-145) mmol/L Potassium (3.5-5.1) mmol/L Chloride (98-107) mmol/L Carbon Dioxide (22-30) mmol/L Anion Gap mmol/L BUN (7-17) mg/dL Creatinine (0.52-1.04) mg/dL Est GFR (CKD-EPI)AfAm (>60 ml/min/1.73 sqM) Est GFR (CKD-EPI)NonAf (>60 ml/min/1.73 sqM) Glucose (74-99) mg/dL Plasma Lactic Acid Jameel (0.7-2.0) mmol/L Calcium (8.4-10.2) mg/dL Total Bilirubin (0.2-1.3) mg/dL AST (14-36) U/L ALT (4-34) U/L Alkaline Phosphatase (38-126) U/L Total Protein (6.3-8.2) g/dL Albumin (3.5-5.0) g/dL Amylase (30-110) U/L Lipase (23-300) U/L Urine Color Colorless Urine Appearance Cloudy H (Clear) Urine pH 8.0 (5.0-8.0) Ur Specific [place] 1.018 (1.001-1.035) Urine Protein Trace H (Negative) Urine Glucose (UA) Negative (Negative) Urine Ketones 1+ H (Negative) Urine Blood Small H (Negative) Urine Nitrite Negative (Negative) Urine Bilirubin Negative (Negative) Urine Urobilinogen <2.0 (<2.0) mg/dL Ur Leukocyte Esterase Large H (Negative) Urine RBC 6 H (0-5) /hpf Urine WBC >182 H (0-5) /hpf Urine WBC Clumps Moderate H (None) /hpf Urine Mucus Rare H (None) /hpf Influenza Type A (PCR) Not Detected (Not Detectd) Influenza Type B (PCR) Not Detected (Not Detectd) RSV (PCR) Not Detected (Not Detectd) SARS-CoV-2 (PCR) Not Detected (Not Detectd) - Radiology Data Radiology results: report reviewed (Chest x-ray shows pleural effusions and CT of the abdomen and pelvis is negative for acute disease does show postoperative changes), image reviewed Disposition Clinical Impression: Fever, UTI (urinary tract infection) Disposition: HOME SELF-CARE Condition: Good Instructions (If sedation given, give patient instructions): Urinary Tract Infection in Women (ED), Fever in Adults (ED) Prescriptions: Cephalexin [Keflex] 500 mg PO Q6HR #40 cap Is patient prescribed a controlled substance at d/c from ED?: No Referrals: Aris Gee MD [Primary Care Provider] - 1-2 days Time of Disposition: 19:20
[2023-06-28 14:53] LABS: Basophils % (A) 0 %; Eosinophils % (A) 0 %; HCT 28.6 % (34.0-46.0); Hypochromasia Moderate; Lymphocytes # (A) 0.8 k/uL (1.0-4.8); Lymphocytes % (A) 6 %; MCH 27.6 pg (25.0-35.0); MCHC 31.6 g/dL (31.0-37.0); MCV 87.3 fL (80.0-100.0); Mean Platelet Volume 7.6; Monocytes # (A) 0.8 k/uL (0-1.0); Monocytes % (A) 6 %; Neutrophils # (A) 11.1 k/uL (1.3-7.7); Neutrophils % (A) 87 %; RBC 3.28 m/uL (3.80-5.40); RDW 14.5 % (11.5-15.5); WBC 12.9 k/uL (3.8-10.6)
[2023-06-28 15:13] LABS: ALT 16 U/L (4-34); AST 30 U/L (14-36); African American GFR (CKD) >90 (>60 ml/min/1.73 sqM); Albumin 2.8 g/dL (3.5-5.0); Alkaline Phosphatase 154 U/L (38-126); Amylase 36 U/L (30-110); Anion Gap 10 mmol/L; Blood Urea Nitrogen 11 mg/dL (7-17); Calcium 8.5 mg/dL (8.4-10.2); Carbon Dioxide 32 mmol/L (22-30); Chloride 93 mmol/L (98-107); Glucose 103 mg/dL (74-99); Lipase 34 U/L (23-300); Non-African American GFR(CKD) >90 (>60 ml/min/1.73 sqM); Potassium 3.5 mmol/L (3.5-5.1); Sodium 135 mmol/L (137-145); Total Bilirubin 0.8 mg/dL (0.2-1.3); Total Protein 6.1 g/dL (6.3-8.2)
[2023-06-28 15:15] LABS: Platelet Count 939 k/uL (150-450)
--- NOTE | 2023-06-28 15:35 | XR ---
EXAMINATION TYPE: XR chest 2V DATE OF EXAM: 06/28/2023 COMPARISON: None INDICATION: Cough TECHNIQUE: Frontal and lateral views of the chest are obtained. FINDINGS: The heart size is normal. The pulmonary vasculature is normal. There is a moderate left and small right pleural effusion.. IMPRESSION: 1. Moderate left and small right pleural effusions
--- NOTE | 2023-06-28 18:09 | CT ---
EXAMINATION TYPE: CT abdomen pelvis w con CT DLP: 1139.2 mGycm, Automated exposure control for dose reduction was used. DATE OF EXAM: 06/28/2023 4:30 PM COMPARISON: 05/13/2023 CT CLINICAL INDICATION:Female, 68 years old with history of abdominal pain; nausea, fever, recent hyster ectomy due to ovarian ca TECHNIQUE: Axial CT of the abdomen and pelvis. Sagittal and coronal reformats were created on a [employer] workstation. Contrast used:100 mL of Isovue 300 with IV Contrast, (none if empty) Oral contrast used: without Oral Contrast (none if empty) FINDINGS: LOWER CHEST: Moderate right and moderate to large left pleural effusions with adjacent compressive at electasis partially seen. The heart appears mildly enlarged with small pericardial effusion. Mild felix cification in the region of the mitral valve again seen. ABDOMEN LIVER: The multiple small hypodense hepatic parenchymal lesions seen before appear stable and likely benign. There has been development of some vague patchy hypoattenuation in the liver, the most focal appearing areas anterior to the portal vein in the medial segment of the left lobe axial image 29, bu t there are contiguous similar patchy areas extending along the gallbladder fossa. Additionally, ther e is a small focus of hyperattenuation seen along the fissure for ligamentum teres anteriorly, which is characteristic of focal fat. Otherwise no definite new hepatic mass is seen. GALLBLADDER AND BILE DUCTS: Gallbladder appears elongated but not overtly distended. Mild wall thickening and or cholecyst ic fluid, is likely due to the adjacent ascites rather than primary gallbladder disease. There is no significant biliary dilatation observed. PANCREAS: Unremarkable. SPLEEN: Now surgically absent. ADRENAL GLANDS: Similar thickening of the left more than right adrenal without evidence of mass, coul d be related to hyperplasia or adenomatoid change.. KIDNEYS AND URETERS: Kidneys are both enhancing, there is slightly delayed nephrogram suggested on th e left. There is new mild right and moderate left hydronephrosis. The ureters are difficult to trace distally due to the extensive postop changes and cannot be confidently identified. Multiple calcifica tions in the pelvis are similar to before and seem to be phleboliths. PELVIS BLADDER: Mildly to moderately distended. REPRODUCTIVE, PERITONEUM/RETROPERITONEUM: Interval surgery has been performed including removal of the uterus, the bilateral heterogeneous intr aperitoneal pelvic masses, and presumably the ovaries. Significant reduction in the quantity of ascit es with a moderate volume residual. There are some relatively small nonencapsulated appearing pockets of fluid in the mesentery, example axial image 38, and in the gastrohepatic region image 26. The 8.1 cm cystic lesion seen before along the inferior tip of the liver has significantly diminished in size and mass effect, this probably represents a mucinous type serosal surface metastatic implant . The previously seen omental caking anteriorly has diminished without residual measurable thickness but there remain several ill-defined nodular densities which are probably residual implants. Anterior to the left iliac vessels where there had been a well-defined bilobed 6.8 x 3.7 cm homogeneously low -attenuation cystic or mucinous structure there is now a 6.8 x 3.9 cm structure which contains fluid or low-attenuation material layering with gas seen antidependently, some fingers of which extend into surrounding tissues including probably intraperitoneal and could possibly involve the nearby colon b ut this is uncertain. There are several foci of pneumoperitoneum, small volume, seen in amongst the a scites, but not unexpected if surgery was recent. There is mesenteric edema and fat stranding with no clearly new or enlarging metastatic lesions at this time. ABDOMEN & PELVIS STOMACH AND BOWEL: Limited evaluation without enteric contrast. Stomach is nondistended and contains fluid and gas. Thickening versus nondistention of the gastric outlet. Duodenal sweep seems grossly pa tent. The small bowel loops show no significant distention to suggest obstruction. There is radiodens ity by the cecum with nonvisualization of the appendix which probably reflects appendectomy. Moderate stool throughout the colon. There are multiple sigmoid region diverticula without clear cut evidence of inflammation on this limited exam. This passes in relatively close proximity to the fluid and gas containing structure anterior to the left iliac vessels described above. The colon farther distally is grossly unremarkable. VASCULATURE: Aorta and major branches are grossly unremarkable. No AAA. Portal veins are enhancing. LYMPH NODES: No gross evidence for lymphadenopathy. SOFT TISSUE/ABDOMINAL WALL: Moderate body wall edema suggesting anasarca, has developed since the ricardo or. Postoperative changes along the anterior abdominal pelvic wall without focal fluid collection see n. Small fat-containing umbilical region hernia. MUSCULOSKELETAL: No acute osseous abnormality or lytic/blastic lesion. Mild/moderate degenerative randa nges of the visualized spine. IMPRESSION: 1. No acute abnormality identified to specifically explain abdominal pain. 2. Extensive postoperative changes, presumably quite recent, as detailed above. Resection of the ut erus and pelvic masses, splenectomy, appendectomy, significant reduction in the volume of ascites, an d the presumed serosal surface implant at the inferior tip of the liver. Omental caking has significa ntly diminished. There are probably small residual intraperitoneal deposits, but no definite new or e nlarging lesion is seen. 3. Fluid and gas containing structure anterior to the left iliac vessels, as above. Uncertain if the gas extends intraperitoneally, and/or communicates with the adjacent colon. I believe this is probab ly some sort of postoperative fluid collection at the site of the prior lesion, and while I don't thi nk this represents a drainable abscess, superimposed infection cannot be excluded by CT. This can be reassessed on subsequent follow-up imaging. 4. Several small hypodense hepatic parenchymal lesions remain stable, and are probably benign. New v ague patchy hypoattenuation in the central liver, is suspected due to patchy fatty infiltration, judg ed less likely to be neoplastic. Attention on follow-up imaging. 5. Small volume pneumoperitoneum, not unexpected following recent surgery. 6. Bladder is mildly to moderately distended. This may help explain new bilateral hydronephrosis, ho wever the distal ureters are not well assessed due to the extensive postoperative changes. Follow-up recommended, this may include CT urogram for best assessment if clinically desired. 7. Cardiomegaly with new bilateral pleural effusions, left larger than right, and moderate anasarca suggesting third spacing of fluid. 8. Other chronic and likely incidental findings, as described above.
[2023-06-28 19:06] VITALS: BP 136/80; PULSE 86; RESP 16; TEMP 97.9
[2023-06-28 19:06] LABS: Appearance,Urine Cloudy (Clear); Bilirubin,Urine Negative (Negative); Blood,Urine Small (Negative); Color,Urine Colorless; Glucose,Urine (UA) Negative (Negative); Ketones,Urine 1+ (Negative); Leukocyte Esterase,Urine Large (Negative); Mucus,Urine Rare /hpf; Nitrite,Urine Negative (Negative); Protein,Urine Trace (Negative); RBC,Urine 6 /hpf (0-5); Specific Gravity,Urine 1.018 (1.001-1.035); Urobilinogen,Urine <2.0 mg/dL (<2.0); WBC,Urine >182 /hpf (0-5)
[2023-06-28] MEDS ORDERED: CEPHALEXIN 500MG STARTER PACK 4 CAP BTL PO STA (19:19)
[2023-06-28] MEDS ORDERED: ONDANSETRON 4 MG ODT STARTER PACK 2 TAB BTL PO STA (19:19)
== END 2023-06-28 21:01 | disposition home or self-care (01) ==
LOC: EC 14:14
DX: N39.0 Urinary tract infection, site not specified (principal); I10 Essential (primary) hypertension; G47.30 Sleep apnea, unspecified; Z79.82 Long term (current) use of aspirin; Z20.822 Contact with and (suspected) exposure to COVID-19; Z88.0 Allergy status to penicillin
CPT/HCPCS: 96365; 96367; 96361 ×3; 99284; 36415; 80053; 82150; 83605; 83690; 85025; 81001; 87040; 87636; 71046; 74177; J0696; J0131; S0119; Q9967

== ENCOUNTER 2023-08-29 09:49 | Emergency (ER) | payer MEDICARE ==
--- NOTE | 2023-08-29 10:18 | ED ---
General Adult HPI - General Chief complaint: Syncope Stated complaint: dehydration Time Seen by Provider: 08/29/23 10:16 Source: patient, family, RN notes reviewed Mode of arrival: ambulatory - History of Present Illness Initial comments: Patient is a 68-year-old female presented to ER with chief complaint of syncope. is providing most of HPI. He states that she walked into the kitchen this morning to eat breakfast and told him to "come near me I feel lightheaded". He states he walked over to the patient and she collapsed in his arms. He states he lowered her to the ground and placed her head onto a pillow. He states that she was diaphoretic and pale appearing. He called 911 for evaluation. He also took her vitals which were stable at the time. He states E MS reported it was most likely her blood pressure causing the syncope. Patient reports she was wearing a heavy lobe and standing in the sunlight. She states she believes she was over heated. Patient is currently undergoing chemo for ovarian cancer last treatment on Monday. Patient denies any chest pain/palpitations, shortness of breath, abdominal pain, urinary complaints or constipation/diarrhea prior to event. - Related Data Home Medications Medication Instructions Recorded Confirmed Ascorbic Acid [Vitamin C] 1,000 mcg PO DAILY 10/25/22 10/25/22 Aspirin [Children's Aspirin] 81 mg PO DAILY 10/25/22 10/25/22 Cholecalciferol (Vitamin D3) 50 mg PO DAILY 10/25/22 10/25/22 [Vitamin D3 (50 Mcg = 2000 Iu) Chew Tab] Valsartan 80 mg PO DAILY 10/25/22 10/25/22 Zinc Gluconate [Zinc] 50 mg PO DAILY 10/25/22 10/25/22 Previous Rx's Medication Instructions Recorded Cephalexin [Keflex] 500 mg PO Q6HR #40 cap 06/28/23 Allergies Allergy/AdvReac Type Severity Reaction Status Date / Time Penicillins Allergy Rash/Hives Verified 06/28/23 14:29 Review of Systems ROS Statement: Those systems with pertinent positive or pertinent negative responses have been documented in the HPI. ROS Other: All systems not noted in ROS Statement are negative. Past Medical History Past Medical History: Cancer, Hypertension, Sleep Apnea/CPAP/BIPAP Additional Past Medical History / Comment(s): Osteopenia. 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 ovarian ca History of Any Multi-Drug Resistant Organisms: None Reported Past Surgical History: Appendectomy, Hysterectomy, Orthopedic Surgery Additional Past Surgical History / Comment(s): R ANKLE SURGERY. Colonoscopy 2014(next after 10yr). partial liver removal. spleenectomy Past Anesthesia/Blood Transfusion Reactions: No Reported Reaction Past Psychological History: No Psychological Hx Reported Smoking Status: Never smoker Past Alcohol Use History: None Reported Past Drug Use History: None Reported - Past Family History Mother Family Medical History: Hypertension Father Family Medical History: Cancer, Diabetes Mellitus, Myocardial Infarction (OR) Additional Family Medical History / Comment(s): Skin cancer. General Exam General appearance: alert, in no apparent distress Head exam: Present: atraumatic, normocephalic, normal inspection Eye exam: Present: normal appearance, PERRL, EOMI. Absent: scleral icterus, conjunctival injection, periorbital swelling Pupils: Present: normal accommodation ENT exam: Present: normal exam, normal oropharynx, mucous membranes moist Respiratory exam: Present: normal lung sounds bilaterally. Absent: respiratory distress, wheezes, rales, rhonchi, stridor Cardiovascular Exam: Present: regular rate, normal rhythm, normal heart sounds. Absent: systolic murmur, diastolic murmur, rubs, gallop, clicks GI/Abdominal exam: Present: soft, normal bowel sounds. Absent: distended, tenderness, guarding, rebound, rigid Neurological exam: Present: alert, oriented X3, CN II-XII intact Psychiatric exam: Present: normal affect, normal mood Skin exam: Present: warm, dry, intact, normal color. Absent: rash Course Vital Signs 08/29/23 08/29/23 08/29/23 09:57 11:00 12:00 Temperature 97.4 F L Pulse Rate 80 78 78 Pulse Rate [ Sitting Pulse Oximetery] Pulse Rate [ Standing Aircraft Dispatcher ] Pulse Rate [ Supine Aircraft Dispatcher] Respiratory 20 18 18 Rate Blood Pressure 128/81 131/72 131/72 Blood Pressure [Sitting] Blood Pressure [Standing] Blood Pressure [Supine] O2 Sat by Pulse 100 99 Oximetry 08/29/23 13:08 Temperature Pulse Rate Pulse Rate [ 91 Sitting Pulse Oximetery] Pulse Rate [ 100 Standing Aircraft Dispatcher ] Pulse Rate [ 73 Supine Aircraft Dispatcher] Respiratory Rate Blood Pressure Blood Pressure 132/80 [Sitting] Blood Pressure 129/84 [Standing] Blood Pressure 126/74 [Supine] O2 Sat by Pulse 99 Oximetry Medical Decision Making - Medical Decision Making Was pt. sent in by a medical professional or institution (, LEONIE, WELDING ROBOT OPERATOR, urgent care, hospital, or usp...) When possible be specific @ -No Did you speak to anyone other than the patient for history (EMS, parent, family, police, friend...)? What history was obtained from this source @ - providing HPI Did you review nursing and triage notes (agree or disagree)? Why? @ -I reviewed and agree with nursing and triage notes Were old charts reviewed (outside hosp., previous admission, EMS record, old EKG, old radiological studies, urgent care reports/EKG's, usp records)? Report findings @ -No old charts were reviewed Differential Diagnosis (chest pain, altered mental status, abdominal pain women, abdominal pain men, vaginal bleeding, weakness, fever, dyspnea, syncope, headache, dizziness, GI bleed, back pain, seizure, CVA, palpatations, mental health, musculoskeletal)? @ -Differential Syncope:Valvular disease, hypertrophic cardiomyopathy, pulmonary embolism, tamponade, tachycardia, bradycardia, OR, hypovolemia, hemorrhage, dissection, anemia, intracranial hemorrhage, seizure, hypoglycemia, carbon monoxide poisoning, this is not meant to be an all-inclusive list. EKG interpreted by me (3pts min.). @ -As above X-rays interpreted by me (1pt min.). @ -Refused by patient CT interpreted by me (1pt min.). @ -None done U/S interpreted by me (1pt. min.). @ -None done What testing was considered but not performed or refused? (CT, X-rays, U/S, labs)? Why? @ -Patient refused chest x-ray. What meds were considered but not given or refused? Why? @ -None Did you discuss the management of the patient with other professionals (professionals i.e. LEONIE Adam, WELDING ROBOT OPERATOR, lab, RT, psych nurse, social work msw, mexican food cook, teacher, welfare officer, pillowcase maker)? Give summary @ -No Was smoking cessation discussed for >3mins.? @ -No Was critical care preformed (if so, how long)? @ -No Were there social determinants of health that impacted care today? How? (Homelessness, low income, unemployed, alcoholism, drug addiction, transportation, low edu. Level, literacy, decrease access to med. care, [facility], rehab)? @ -No Was there de-escalation of care discussed even if they declined (Discuss DNR or withdrawal of care, Hospice)? DNR status @ -No What co-morbidities impacted this encounter? (DM, HTN, Smoking, COPD, CAD, Cancer, CVA, ARF, Chemo, Hep., AIDS, mental health diagnosis, sleep apnea, morbid obesity)? @ -Ovarian cancer Was patient admitted / discharged? Hospital course, mention meds given and route, prescriptions, significant lab abnormalities, going to OR and other pertinent info. @ -Discharge. Patient is a 58-year-old female presented to ER with a chief complaint of syncopal episode. History physical exam completed. Vitals stable. Patient in no signs of acute distress and nontoxic-appearing. No acute neurological findings on exam. Labs obtained significant for hemoglobin 10.8 (06-28-2023 hemoglobin 9), BUN 23, creatinine 0.44. Influenza, RSV, COVID- negative. Urine without signs of infection. Orthostatic blood pressures completed with appropriate responses. Patient received 1 L IV fluids and Zofran for symptom control in the ER. Chest x-ray refused by patient. EKG without acute evidence of infarct or ischemia. Upon reevaluation, patient stated she felt much better. Results discussed with patient, all questions answered. Advised patient to make positional changes slowly and to increase her water intake. Strict return parameters discussed. Patient discharged stable cond ition with follow-up to PCP. Patient and , at bedside expressed understanding and agreement with care plan. Case discussed with ED attending, Dr. Raines. Undiagnosed new problem with uncertain prognosis? @ -No Drug Therapy requiring intensive monitoring for toxicity (Heparin, Nitro, Insu shaan, Cardizem)? @ -No Were any procedures done? @ -No Diagnosis/symptom? @ -Vasovagal syncope Acute, or Chronic, or Acute on Chronic? @ -Acute Uncomplicated (without systemic symptoms) or Complicated (systemic symptoms)? @ -Uncomplicated Side effects of treatment? @ -No Exacerbation, Progression, or Severe Exacerbation? @ -No Poses a threat to life or bodily function? How? (Chest pain, USA, OR, pneumonia, PE, COPD, DKA, ARF, appy, cholecystitis, CVA, Diverticulitis, Homicidal, Suicidal, threat to staff... and all critical care pts) @ -No - Lab Data Result diagrams: 08/29/23 10:26 08/29/23 10:26 Lab Results 08/29/23 08/29/23 08/29/23 Range/Units 10:26 10:26 10:26 WBC 4.1 (3.8-10.6) k/uL RBC 3.74 L (3.80-5.40) m/uL Hgb 10.8 L (11.4-16.0) gm/dL Hct 33.9 L (34.0-46.0) % MCV 90.5 (80.0-100.0) fL MCH 28.8 (25.0-35.0) pg MCHC 31.9 (31.0-37.0) g/dL RDW 20.2 H (11.5-15.5) % Plt Count 322 (150-450) k/uL MPV 8.9 Neutrophils % 81 % Lymphocytes % 16 % Monocytes % 2 % Eosinophils % 0 % Basophils % 0 % Neutrophils # 3.3 (1.3-7.7) k/uL Lymphocytes # 0.6 L (1.0-4.8) k/uL Monocytes # 0.1 (0-1.0) k/uL Eosinophils # 0.0 (0-0.7) k/uL Basophils # 0.0 (0-0.2) k/uL Anisocytosis Moderate Sodium 137 (137-145) mmol/L Potassium 4.7 (3.5-5.1) mmol/L Chloride 103 (98-107) mmol/L Carbon Dioxide 27 (22-30) mmol/L Anion Gap 7 mmol/L BUN 23 H (7-17) mg/dL Creatinine 0.44 L (0.52-1.04) mg/dL Est GFR (CKD-EPI)AfAm >90 (>60 ml/min/1.73 sqM) Est GFR (CKD-EPI)NonAf >90 (>60 ml/min/1.73 sqM) Glucose 121 H (74-99) mg/dL Plasma Lactic Acid Jameel (0.7-2.0) mmol/L Calcium 9.4 (8.4-10.2) mg/dL Magnesium 1.7 (1.6-2.3) mg/dL Total Bilirubin 0.7 (0.2-1.3) mg/dL AST 44 H (14-36) U/L ALT 24 (4-34) U/L Alkaline Phosphatase 50 (38-126) U/L Total Protein 6.9 (6.3-8.2) g/dL Albumin 4.0 (3.5-5.0) g/dL Urine Color Light Yellow Urine Appearance Clear (Clear) Urine pH 6.0 (5.0-8.0) Ur Specific [place] 1.018 (1.001-1.035) Urine Protein Negative (Negative) Urine Glucose (UA) Negative (Negative) Urine Ketones Negative (Negative) Urine Blood Negative (Negative) Urine Nitrite Negative (Negative) Urine Bilirubin Negative (Negative) Urine Urobilinogen <2.0 (<2.0) mg/dL Ur Leukocyte Esterase Large H (Negative) Urine WBC 8 H (0-5) /hpf Ur Squamous Epith Cells 1 (0-4) /hpf Urine Mucus Moderate H (None) /hpf Influenza Type A (PCR) (Not Detectd) Influenza Type B (PCR) (Not Detectd) RSV (PCR) (Not Detectd) SARS-CoV-2 (PCR) (Not Detectd) 08/29/23 08/29/23 Range/Units 10:26 10:50 WBC (3.8-10.6) k/uL RBC (3.80-5.40) m/uL Hgb (11.4-16.0) gm/dL Hct (34.0-46.0) % MCV (80.0-100.0) fL MCH (25.0-35.0) pg MCHC (31.0-37.0) g/dL RDW (11.5-15.5) % Plt Count (150-450) k/uL MPV Neutrophils % % Lymphocytes % % Monocytes % % Eosinophils % % Basophils % % Neutrophils # (1.3-7.7) k/uL Lymphocytes # (1.0-4.8) k/uL Monocytes # (0-1.0) k/uL Eosinophils # (0-0.7) k/uL Basophils # (0-0.2) k/uL Anisocytosis Sodium (137-145) mmol/L Potassium (3.5-5.1) mmol/L Chloride (98-107) mmol/L Carbon Dioxide (22-30) mmol/L Anion Gap mmol/L BUN (7-17) mg/dL Creatinine (0.52-1.04) mg/dL Est GFR (CKD-EPI)AfAm (>60 ml/min/1.73 sqM) Est GFR (CKD-EPI)NonAf (>60 ml/min/1.73 sqM) Glucose (74-99) mg/dL Plasma Lactic Acid Jameel 1.1 (0.7-2.0) mmol/L Calcium (8.4-10.2) mg/dL Magnesium (1.6-2.3) mg/dL Total Bilirubin (0.2-1.3) mg/dL AST (14-36) U/L ALT (4-34) U/L Alkaline Phosphatase (38-126) U/L Total Protein (6.3-8.2) g/dL Albumin (3.5-5.0) g/dL Urine Color Urine Appearance (Clear) Urine pH (5.0-8.0) Ur Specific [place] (1.001-1.035) Urine Protein (Negative) Urine Glucose (UA) (Negative) Urine Ketones (Negative) Urine Blood (Negative) Urine Nitrite (Negative) Urine Bilirubin (Negative) Urine Urobilinogen (<2.0) mg/dL Ur Leukocyte Esterase (Negative) Urine WBC (0-5) /hpf Ur Squamous Epith Cells (0-4) /hpf Urine Mucus (None) /hpf Influenza Type A (PCR) Not Detected (Not Detectd) Influenza Type B (PCR) Not Detected (Not Detectd) RSV (PCR) Not Detected (Not Detectd) SARS-CoV-2 (PCR) Not Detected (Not Detectd) - EKG Data -: EKG Interpreted by Me EKG Comments: EKG taken at 10: 54 shows normal sinus rhythm with no acute ST segment or T wave abnormalities. Ventricular rate 71, UT interval 126, QRS duration 88, QT/QTc 387/409. Disposition Clinical Impression: Vasovagal syncope, Ovarian cancer Disposition: HOME SELF-CARE Condition: Stable Instructions (If sedation given, give patient instructions): Lightheadedness (ED), Syncope in Older Adults (ED) Additional Instructions: I encourage you to increase hydration and salt intake. Please follow-up with PCP. Return to the ER for any new or worsening symptoms. Is patient prescribed a controlled substance at d/c from ED?: No Referrals: Aris Gee MD [Primary Care Provider] - 1-2 days Time of Disposition: 13:16
[2023-08-29] MEDS: SODIUM CHLORIDE 0.9% 1,000 ML IV STA (10:35)
[2023-08-29] MEDS: ONDANSETRON 4 MG/2 ML VIAL IVP STA (10:37)
[2023-08-29 11:10] LABS: Anisocytosis Moderate; Basophils % (A) 0 %; Eosinophils % (A) 0 %; HCT 33.9 % (34.0-46.0); HGB 10.8 gm/dL (11.4-16.0); Lymphocytes # (A) 0.6 k/uL (1.0-4.8); Lymphocytes % (A) 16 %; MCH 28.8 pg (25.0-35.0); MCHC 31.9 g/dL (31.0-37.0); MCV 90.5 fL (80.0-100.0); Mean Platelet Volume 8.9; Monocytes # (A) 0.1 k/uL (0-1.0); Monocytes % (A) 2 %; Neutrophils # (A) 3.3 k/uL (1.3-7.7); Neutrophils % (A) 81 %; Platelet Count 322 k/uL (150-450); RBC 3.74 m/uL (3.80-5.40); RDW 20.2 % (11.5-15.5); WBC 4.1 k/uL (3.8-10.6)
[2023-08-29 11:26] LABS: ALT 24 U/L (4-34); African American GFR (CKD) >90 (>60 ml/min/1.73 sqM); Anion Gap 7 mmol/L; Blood Urea Nitrogen 23 mg/dL (7-17); Carbon Dioxide 27 mmol/L (22-30); Chloride 103 mmol/L (98-107); Glucose 121 mg/dL (74-99); Magnesium 1.7 mg/dL (1.6-2.3); Non-African American GFR(CKD) >90 (>60 ml/min/1.73 sqM); Sodium 137 mmol/L (137-145); Total Bilirubin 0.7 mg/dL (0.2-1.3); Total Protein 6.9 g/dL (6.3-8.2)
[2023-08-29 11:28] LABS: AST 44 U/L (14-36); Alkaline Phosphatase 50 U/L (38-126); Calcium 9.4 mg/dL (8.4-10.2); Potassium 4.7 mmol/L (3.5-5.1)
[2023-08-29 12:50] LABS: Appearance,Urine Clear (Clear); Bilirubin,Urine Negative (Negative); Blood,Urine Negative (Negative); Color,Urine Light Yellow; Glucose,Urine (UA) Negative (Negative); Ketones,Urine Negative (Negative); Leukocyte Esterase,Urine Large (Negative); Mucus,Urine Moderate /hpf; Nitrite,Urine Negative (Negative); Protein,Urine Negative (Negative); Specific Gravity,Urine 1.018 (1.001-1.035); Squamous Epithelial Cell,Urine 1 /hpf (0-4); Urobilinogen,Urine <2.0 mg/dL (<2.0); WBC,Urine 8 /hpf (0-5)
[2023-08-29 12:57] VITALS: RESP 18
[2023-08-29 13:33] VITALS: BP 126/74; PULSE 73
[2023-08-29 14:09] VITALS: TEMP 98.1
== END 2023-08-29 14:00 | disposition home or self-care (01) ==
LOC: EC 09:49
DX: C56.9 Malignant neoplasm of unspecified ovary (principal); R55 Syncope and collapse; I10 Essential (primary) hypertension; G47.30 Sleep apnea, unspecified; Z88.0 Allergy status to penicillin; Z79.82 Long term (current) use of aspirin; Z79.899 Other long term (current) drug therapy
CPT/HCPCS: 36415; 93005; 80053; 83605; 83735; 85025; 81001; 87636; 99284; 96374; 96361; J2405

== ENCOUNTER 2023-11-14 23:37 | Emergency (ER) | payer MEDICARE ==
--- NOTE | 2023-11-14 23:54 | ED ---
Abdominal Pain HPI - General Source: patient, RN notes reviewed Mode of arrival: ambulatory Limitations: no limitations <Rosmery Terry - Last Filed: 11/14/23 23:53> <Aroldo Lui - Last Filed: 11/15/23 05:57> - General Stated Complaint: Abdominal Pain Time Seen by Provider: 11/14/23 23:50 - History of Present Illness Initial Comments: Quick Note-this is a 88-year-old female with a history of stage IIIc ovarian cancer on chemotherapy presents emergency department chief complaint of constipation. Patient said that she has not had a bowel movement since Monday. She is attempted to use MiraLAX, senna, and a Fleet enema at home wit h no relief. Patient had a episode of emesis noted to the emergency department. (Rosmery Terry) - Related Data Home Medications Medication Instructions Recorded Confirmed Ascorbic Acid [Vitamin C] 1,000 mcg PO DAILY 10/25/22 10/25/22 Aspirin [Children's Aspirin] 81 mg PO DAILY 10/25/22 10/25/22 Cholecalciferol (Vitamin D3) 50 mg PO DAILY 10/25/22 10/25/22 [Vitamin D3 (50 Mcg = 2000 Iu) Chew Tab] Valsartan 80 mg PO DAILY 10/25/22 10/25/22 Zinc Gluconate [Zinc] 50 mg PO DAILY 10/25/22 10/25/22 Previous Rx's Medication Instructions Recorded Cephalexin [Keflex] 500 mg PO Q6HR #40 cap 06/28/23 Allergies Allergy/AdvReac Type Severity Reaction Status Date / Time Penicillins Allergy Rash/Hives Verified 11/14/23 23:53 Review of Systems ROS Other: All systems not noted in ROS Statement are negative. <Rosmery Terry - Last Filed: 11/14/23 23:53> ROS Other: All systems not noted in ROS Statement are negative. <Aroldo Lui - Last Filed: 11/15/23 05:57> ROS Statement: Those systems with pertinent positive or pertinent negative responses have been documented in the HPI. Past Medical History Past Medical History: Cancer, Hypertension, Sleep Apnea/CPAP/BIPAP Additional Past Medical History / Comment(s): Osteopenia. 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 ovarian ca History of Any Multi-Drug Resistant Organisms: None Reported Past Surgical History: Appendectomy, Hysterectomy, Orthopedic Surgery Additional Past Surgical History / Comment(s): R ANKLE SURGERY. Colonoscopy 2015(next after 10yr). partial liver removal. spleenectomy Past Anesthesia/Blood Transfusion Reactions: No Reported Reaction Past Psychological History: No Psychological Hx Reported Smoking Status: Never smoker Past Alcohol Use History: None Reported Past Drug Use History: None Reported - Past Family History Mother Family Medical History: Hypertension Father Family Medical History: Cancer, Diabetes Mellitus, Myocardial Infarction (CT) Additional Family Medical History / Comment(s): Skin cancer. <Rosmery Terry - Last Filed: 11/14/23 23:53> General Exam Limitations: no limitations <Rosmery Terry - Last Filed: 11/14/23 23:53> - General Exam Comments Initial Comments: Visual Physical Exam Vital signs reviewed General: Well-appearing, nontoxic, no acute distress. Head: Normocephalic, atraumatic Eyes: PERRLA, EOMI ENT: Airway patent Chest: Nonlabored breathing Skin: No visual rash, normal skin tone Neuro: Alert and oriented 3 Musculoskeletal: No gross abnormalities (Rosmery Terry) Course Vital Signs 11/14/23 23:50 Temperature 98 F Pulse Rate 79 Respiratory 18 Rate Blood Pressure 121/80 O2 Sat by Pulse 100 Oximetry Medical Decision Making <Rosmery Terry - Last Filed: 11/14/23 23:53> - Lab Data Result diagrams: 11/15/23 00:57 11/15/23 00:57 <Aroldo Lui - Last Filed: 11/15/23 05:57> - Medical Decision Making I completed the quick note portion of this chart signed Rosmery Terry PA-C (Rosmery Terry) - Lab Data Lab Results 11/15/23 11/15/23 11/15/23 Range/Units 00:57 00:57 00:57 WBC 25.1 H (3.8-10.6) k/uL RBC 3.17 L (3.80-5.40) m/uL Hgb 10.4 L (11.4-16.0) gm/dL Hct 31.6 L (34.0-46.0) % MCV 99.7 (80.0-100.0) fL MCH 32.7 (25.0-35.0) pg MCHC 32.8 (31.0-37.0) g/dL RDW 17.8 H (11.5-15.5) % Plt Count 196 (150-450) k/uL MPV 9.7 Neutrophils % 96 % Lymphocytes % 2 % Monocytes % 2 % Eosinophils % 0 % Basophils % 0 % Neutrophils # 24.0 H (1.3-7.7) k/uL Lymphocytes # 0.4 L (1.0-4.8) k/uL Monocytes # 0.5 (0-1.0) k/uL Eosinophils # 0.0 (0-0.7) k/uL Basophils # 0.1 (0-0.2) k/uL Anisocytosis Slight Macrocytosis Slight Sodium 134 L (137-145) mmol/L Potassium 4.3 (3.5-5.1) mmol/L Chloride 101 (98-107) mmol/L Carbon Dioxide 23 (22-30) mmol/L Anion Gap 10 mmol/L BUN 34 H (7-17) mg/dL Creatinine 0.75 (0.52-1.04) mg/dL Est GFR (CKD-EPI)AfAm >90 (>60 ml/min/1.73 sqM) Est GFR (CKD-EPI)NonAf 83 (>60 ml/min/1.73 sqM) Glucose 120 H (74-99) mg/dL Calcium 9.3 (8.4-10.2) mg/dL Total Bilirubin 0.9 (0.2-1.3) mg/dL AST 33 (14-36) U/L ALT 27 (4-34) U/L Alkaline Phosphatase 125 (38-126) U/L C-Reactive Protein 8.9 H (<1.0) mg/dL Total Protein 6.6 (6.3-8.2) g/dL Albumin 4.0 (3.5-5.0) g/dL Urine Color Dark Yellow Urine Appearance Clear (Clear) Urine pH 5.5 (5.0-8.0) Ur Specific [place] 1.034 (1.001-1.035) Urine Protein 1+ H (Negative) Urine Glucose (UA) Negative (Negative) Urine Ketones 4+ H (Negative) Urine Blood Negative (Negative) Urine Nitrite Negative (Negative) Urine Bilirubin Negative (Negative) Urine Urobilinogen 2.0 (<2.0) mg/dL Ur Leukocyte Esterase Trace H (Negative) Urine RBC 2 (0-5) /hpf Urine WBC 8 H (0-5) /hpf Amorphous Sediment Rare H (None) /hpf Hyaline Casts 4 H (0-2) /lpf Urine Mucus Many H (None) /hpf Disposition <Rosmery Terry - Last Filed: 11/14/23 23:53> Is patient prescribed a controlled substance at d/c from ED?: No <Aroldo Lui - Last Filed: 11/15/23 05:57> Clinical Impression: Constipation Disposition: HOME SELF-CARE Condition: Fair Instructions (If sedation given, give patient instructions): Constipation (DC) Referrals: Aris Gee MD [Primary Care Provider] - 1-2 days
[2023-11-15 01:26] LABS: Anisocytosis Slight; Basophils # (A) 0.1 k/uL (0-0.2); Basophils % (A) 0 %; Eosinophils % (A) 0 %; HCT 31.6 % (34.0-46.0); HGB 10.4 gm/dL (11.4-16.0); Lymphocytes # (A) 0.4 k/uL (1.0-4.8); Lymphocytes % (A) 2 %; MCH 32.7 pg (25.0-35.0); MCHC 32.8 g/dL (31.0-37.0); MCV 99.7 fL (80.0-100.0); Macrocytosis Slight; Mean Platelet Volume 9.7; Monocytes # (A) 0.5 k/uL (0-1.0); Monocytes % (A) 2 %; Neutrophils % (A) 96 %; Platelet Count 196 k/uL (150-450); RBC 3.17 m/uL (3.80-5.40); RDW 17.8 % (11.5-15.5); WBC 25.1 k/uL (3.8-10.6)
[2023-11-15 01:42] LABS: ALT 27 U/L (4-34); AST 33 U/L (14-36); African American GFR (CKD) >90 (>60 ml/min/1.73 sqM); Alkaline Phosphatase 125 U/L (38-126); Anion Gap 10 mmol/L; Blood Urea Nitrogen 34 mg/dL (7-17); C Reactive Protein 8.9 mg/dL (<1.0); Calcium 9.3 mg/dL (8.4-10.2); Carbon Dioxide 23 mmol/L (22-30); Chloride 101 mmol/L (98-107); Glucose 120 mg/dL (74-99); Non-African American GFR(CKD) 83 (>60 ml/min/1.73 sqM); Potassium 4.3 mmol/L (3.5-5.1); Sodium 134 mmol/L (137-145); Total Bilirubin 0.9 mg/dL (0.2-1.3); Total Protein 6.6 g/dL (6.3-8.2)
--- NOTE | 2023-11-15 01:46 | XR ---
EXAM: XR Abdomen, 1 View CLINICAL HISTORY: constipation TECHNIQUE: Frontal supine view of the abdomen/pelvis. COMPARISON: No relevant prior studies available. FINDINGS: Gastrointestinal tract: Moderate to large amount of stool throughout the colon. Rectum or distal sigmoid colon is dilated to a maximum diameter 8.3 cm may suggest focal colonic ileus. Bones/joints: Osteopenia. Moderate degenerative changes. IMPRESSION: Moderate to large amount of stool throughout the colon corresponds to patient's history of constipation. Rectum or distal sigmoid colon is dilated to a maximum diameter 8.3 cm may suggest focal colonic ileus.
[2023-11-15 02:04] LABS: Amorphous Sediment,Urine Rare /hpf; Appearance,Urine Clear (Clear); Bilirubin,Urine Negative (Negative); Blood,Urine Negative (Negative); Color,Urine Dark Yellow; Glucose,Urine (UA) Negative (Negative); Hyaline Casts,Urine 4 /lpf (0-2); Ketones,Urine 4+ (Negative); Leukocyte Esterase,Urine Trace (Negative); Mucus,Urine Many /hpf; Nitrite,Urine Negative (Negative); PH, Urine 5.5 (5.0-8.0); Protein,Urine 1+ (Negative); RBC,Urine 2 /hpf (0-5); Specific Gravity,Urine 1.034 (1.001-1.035); WBC,Urine 8 /hpf (0-5)
[2023-11-15] MEDS: PEG 3350 (236 GM/BTL) + LYTES 4,000 ML BOTTLE PO ONE (06:15)
[2023-11-15 06:25] VITALS: BP 144/81; PULSE 86; RESP 16; TEMP 98.9
== END 2023-11-15 06:20 | disposition home or self-care (01) ==
LOC: EC 23:37
DX: K59.00 Constipation, unspecified (principal); Z88.0 Allergy status to penicillin
CPT/HCPCS: 36415; 74018; 80053; 81001; 85025; 86140; 99284

== ENCOUNTER 2023-11-16 04:20 | Inpatient (IN) | payer MEDICARE ==
[2023-11-16] MEDS: DICYCLOMINE 20 MG TAB PO STA (05:01)
--- NOTE | 2023-11-16 06:11 | ED ---
Abdominal Pain HPI <Tj Morales - Last Filed: 11/16/23 12:54> - General Source: patient Mode of arrival: wheelchair Limitations: no limitations - History of Present Illness MD Complaint: abdominal pain -: days(s) Location: diffuse Radiation: none Migration to: no migration Severity: severe Quality: cramping Consistency: intermittent Improves With: nothing Worsens With: nothing Associated Symptoms: constipation <Aroldo Lui - Last Filed: 11/27/23 05:46> - General Chief Complaint: Abdominal Pain Stated Complaint: abd pain Time Seen by Provider: 11/16/23 04:32 - History of Present Illness Initial Comments: This patient is 68-year-old woman with history of stage III ovarian cancer. She was then 2 days ago with constipation. The patient had enema here which only produced small amount of stool and went home with GoLytely, but she only took 1 glass of this, and did not pass solid stool. She did have some liquid stool and she is passing flatus. Patient is not having fevers or chills at home. No vomiting. (Aroldo Lui) - Related Data Home Medications Medication Instructions Recorded Confirmed Valsartan 80 mg PO HS 10/25/22 11/16/23 Sennosides [Senokot] 8.6 mg PO DAILY PRN 11/16/23 11/16/23 Sennosides [Senokot] 8.6 mg PO HS 11/16/23 11/16/23 polyethylene glycoL 3350 [Miralax] 17 gm PO DAILY 11/16/23 11/16/23 polyethylene glycoL 3350 [Miralax] 17 gm PO HS PRN 11/16/23 11/16/23 Previous Rx's Medication Instructions Recorded Acetaminophen Tab [Tylenol Tab] 650 mg PO Q4H PRN #30 tablet 11/24/23 Ciprofloxacin HCl [Cipro] 500 mg PO BID 10 Days #20 tab 11/26/23 metroNIDAZOLE [Flagyl] 500 mg PO TID #30 tab 11/26/23 Allergies Allergy/AdvReac Type Severity Reaction Status Date / Time Penicillins Allergy Rash/Hives Verified 11/16/23 12:48 Review of Systems ROS Other: All systems not noted in ROS Statement are negative. <Tj Morales - Last Filed: 11/16/23 12:54> ROS Other: All systems not noted in ROS Statement are negative. Constitutional: Denies: fever, chills, weakness Respiratory: Denies: cough, dyspnea Cardiovascular: Denies: chest pain, palpitations, edema Gastrointestinal: Reports: abdominal pain, constipation. Denies: nausea, vomiting, diarrhea, melena, hematochezia Genitourinary: Denies: dysuria, hematuria Musculoskeletal: Denies: back pain Skin: Denies: rash Neurological: Denies: headache, weakness, numbness <Aroldo Lui - Last Filed: 11/27/23 05:46> ROS Statement: Those systems with pertinent positive or pertinent negative responses have been documented in the HPI. Past Medical History Past Medical History: Cancer, Hypertension, Sleep Apnea/CPAP/BIPAP Additional Past Medical History / Comment(s): Osteopenia. 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 ovarian ca History of Any Multi-Drug Resistant Organisms: None Reported Past Surgical History: Appendectomy, Hysterectomy, Orthopedic Surgery Additional Past Surgical History / Comment(s): R ANKLE SURGERY. Colonoscopy 2014(next after 10yr). partial liver removal. spleenectomy Past Anesthesia/Blood Transfusion Reactions: No Reported Reaction Past Psychological History: No Psychological Hx Reported Smoking Status: Never smoker Past Alcohol Use History: None Reported Past Drug Use History: None Reported - Past Family History Mother Family Medical History: Hypertension Father Family Medical History: Cancer, Diabetes Mellitus, Myocardial Infarction ([place]) Additional Family Medical History / Comment(s): Skin cancer. <Aroldo Lui - Last Filed: 11/27/23 05:46> General Exam Limitations: no limitations General appearance: alert, in no apparent distress Head exam: Present: atraumatic, normocephalic Eye exam: Present: normal appearance. Absent: scleral icterus, conjunctival injection Neck exam: Present: normal inspection Respiratory exam: Present: normal lung sounds bilaterally. Absent: respiratory distress, wheezes, rales, rhonchi, stridor, accessory muscle use Cardiovascular Exam: Present: regular rate, normal rhythm, normal heart sounds. Absent: systolic murmur, diastolic murmur, rubs, gallop GI/Abdominal exam: Present: soft. Absent: distended, tenderness, guarding, rebound, rigid, mass, pulsatile mass, hernia Extremities exam: Present: normal inspection, normal capillary refill. Absent: pedal edema, calf tenderness Back exam: Present: normal inspection. Absent: CVA tenderness (R), CVA tenderness (L) Neurological exam: Present: alert Skin exam: Present: warm, dry, intact, normal color. Absent: rash <Aroldo Lui - Last Filed: 11/27/23 05:46> Course Vital Signs 11/16/23 11/16/23 11/16/23 04:26 06:14 07:46 Temperature 97.5 F L Pulse Rate 114 H 86 97 Respiratory 18 18 16 Rate Blood Pressure 90/59 100/54 117/72 O2 Sat by Pulse 97 97 97 Oximetry 11/16/23 11/16/23 11/16/23 11:45 13:04 14:16 Temperature Pulse Rate 103 H 113 H 120 H Respiratory 16 16 18 Rate Blood Pressure 128/67 112/76 117/68 O2 Sat by Pulse 98 97 95 Oximetry Medical Decision Making - Lab Data Result diagrams: 11/16/23 09:13 11/16/23 09:13 <Tj Morales - Last Filed: 11/16/23 12:54> - Lab Data Result diagrams: 11/25/23 08:02 11/25/23 08:02 <Aroldo Lui - Last Filed: 11/27/23 05:46> - Medical Decision Making Patient care signed out to me by previous shift physician, Dr. Mcgowan. Briefly, patient is 68-year-old female had her last dose of chemotherapy. Plan at signout was to follow-up with patient after she was given an enema and determine further care. Patient evaluated at the bedside at 9:00 AM. Patient had not had a bowel movement after the enema. She does report continued worsening lower abdominal pain. Labs and imaging were reviewed from yesterday showing concern of possible focal colonic ileus. She did have leukocytosis 25.1. Patient has palpable tenderness to her lower abdomen. Patient agreeable with labs and CT. CT of the abdomen pelvis ordered. There is large area of pneumoperitoneum. Case discussed with general surgeon Dr. Mariscal who was able to contact patient's primary surgeon, Dr. Kemp. Plan is for patient to stay at her facility for further care. Dr. Delgadillo will perform exploratory laparotomy. Patient will be admitted to [facility]. Started on antibiotics. (Tj Morales) This patient is 68-year-old woman who returns with continued constipation issues. She had tried taking 1 glass of GoLytely at home and did not pass any solid stool. She did have some liquid stool but she is continue to have the diffuse cramping abdominal pains. She went to sleep and then the pain worsened and woke her so she returns to the emergency department. The patient did have 2 cycles of enema and has started to pass small amount of lumpy stool. She does request to try 1 more round of enema at the shift change and will be turned over to the oncoming physician. Was pt. sent in by a medical professional or institution (, PA, BUILDING CONSTRUCTION TEACHER, urgent care, hospital, or care home...) When possible be specific @ -[No] Did you speak to anyone other than the patient for history (EMS, parent, family, police, friend...)? What history was obtained from this source @ -[The patient's did contribute to history Did you review nursing and triage notes (agree or disagree)? Why? @ -[I reviewed and agree with nursing and triage notes] Were old charts reviewed (outside hosp., previous admission, EMS record, old EKG, old radiological studies, urgent care reports/EKG's, care home records)? Report findings @ -[Yes old charts were reviewed] Differential Diagnosis (chest pain, altered mental status, abdominal pain women, abdominal pain men, vaginal bleeding, weakness, fever, dyspnea, syncope, headache, dizziness, GI bleed, back pain, seizure, CVA, palpatations, mental health, musculoskeletal)? @ -[Differential Abdominal Pain Women: Appendicitis, Cholecystitis, diverticulosis, ischemic bowel, pancreatitis, hepatitis, UTI, gastroenteritis, AAA, incarcerated hernia, bowel obstruction, constipation, inflammatory bowel, hepatitis, peptic ulcer disease, splenic infarction, perforated viscus, vulvitis, ovarian torsion, PID, kidney stone, placenta abruption, this is not meant to be an all-inclusive list EKG interpreted by me (3pts min.). @ -[As above] X-rays interpreted by me (1pt min.). @ -[None done] CT interpreted by me (1pt min.). @ -[None done] U/S interpreted by me (1pt. min.). @ -[None done] What testing was considered but not performed or refused? (CT, X-rays, U/S, labs)? Why? @ -[None] What meds were considered but not given or refused? Why? @ -[None] Did you discuss the management of the patient with other professionals (professionals i.e. , PA, BUILDING CONSTRUCTION TEACHER, lab, RT, psych nurse, social economist, air compressor mechanic, teacher, national insurance officer, director of casework services)? Give summary @ -[No] Was smoking cessation discussed for >3mins.? @ -[No] Was critical care preformed (if so, how long)? @ -[No] Were there social determinants of health that impacted care today? How? (Homelessness, low income, unemployed, alcoholism, drug addiction, transportation, low edu. Level, literacy, decrease access to med. care, halfway, rehab)? @ -[No] Was there de-escalation of care discussed even if they declined (Discuss DNR or withdrawal of care, Hospice)? DNR status @ -[No] What co-morbidities impacted this encounter? (DM, HTN, Smoking, COPD, CAD, Cancer, CVA, ARF, Chemo, Hep., AIDS, mental health diagnosis, sleep apnea, morbid obesity)? @ -[Cancer history. Pelvic surgery Was patient admitted / discharged? Hospital course, mention meds given and route, prescriptions, significant lab abnormalities, going to OR and other pertinent info. @ -[Patient pending results of second enema signed out to the oncoming physician (Aroldo Lui) - Lab Data Lab Results 11/16/23 11/16/23 Range/Units 09:13 09:13 WBC 9.5 (3.8-10.6) k/uL RBC 3.09 L (3.80-5.40) m/uL Hgb 10.0 L (11.4-16.0) gm/dL Hct 31.0 L (34.0-46.0) % MCV 100.0 (80.0-100.0) fL MCH 32.4 (25.0-35.0) pg MCHC 32.4 (31.0-37.0) g/dL RDW 17.3 H (11.5-15.5) % Plt Count 150 (150-450) k/uL MPV 10.4 Neutrophils % 90 % Lymphocytes % 6 % Monocytes % 3 % Eosinophils % 0 % Basophils % 0 % Neutrophils # 8.6 H (1.3-7.7) k/uL Lymphocytes # 0.5 L (1.0-4.8) k/uL Monocytes # 0.3 (0-1.0) k/uL Eosinophils # 0.0 (0-0.7) k/uL Basophils # 0.0 (0-0.2) k/uL Anisocytosis Slight Macrocytosis Slight Sodium 131 L (137-145) mmol/L Potassium 3.8 (3.5-5.1) mmol/L Chloride 99 (98-107) mmol/L Carbon Dioxide 27 (22-30) mmol/L Anion Gap 5 mmol/L BUN 28 H (7-17) mg/dL Creatinine 0.70 (0.52-1.04) mg/dL Est GFR (CKD-EPI)AfAm >90 (>60 ml/min/1.73 sqM) Est GFR (CKD-EPI)NonAf 90 (>60 ml/min/1.73 sqM) Glucose 104 H (74-99) mg/dL Calcium 8.4 (8.4-10.2) mg/dL Disposition Decision Time: 12:56 <Tj Morales - Last Filed: 11/16/23 12:54> <Aroldo Lui - Last Filed: 11/27/23 05:46> Clinical Impression: Pneumoperitoneum Disposition: ADMITTED IP TO THIS HOSP Condition: Serious
[2023-11-16 09:27] LABS: Anisocytosis Slight; Basophils % (A) 0 %; Eosinophils % (A) 0 %; Lymphocytes # (A) 0.5 k/uL (1.0-4.8); Lymphocytes % (A) 6 %; MCH 32.4 pg (25.0-35.0); MCHC 32.4 g/dL (31.0-37.0); Macrocytosis Slight; Mean Platelet Volume 10.4; Monocytes # (A) 0.3 k/uL (0-1.0); Monocytes % (A) 3 %; Neutrophils # (A) 8.6 k/uL (1.3-7.7); Neutrophils % (A) 90 %; Platelet Count 150 k/uL (150-450); RBC 3.09 m/uL (3.80-5.40); RDW 17.3 % (11.5-15.5); WBC 9.5 k/uL (3.8-10.6)
[2023-11-16 09:39] LABS: African American GFR (CKD) >90 (>60 ml/min/1.73 sqM); Anion Gap 5 mmol/L; Blood Urea Nitrogen 28 mg/dL (7-17); Calcium 8.4 mg/dL (8.4-10.2); Carbon Dioxide 27 mmol/L (22-30); Chloride 99 mmol/L (98-107); Glucose 104 mg/dL (74-99); Non-African American GFR(CKD) 90 (>60 ml/min/1.73 sqM); Potassium 3.8 mmol/L (3.5-5.1); Sodium 131 mmol/L (137-145)
--- NOTE | 2023-11-16 11:55 | CT ---
EXAMINATION TYPE: CT abdomen pelvis w con DATE OF EXAM: 11/16/2023 COMPARISON: 06/28/2023 INDICATION: constipated DLP: 802.7 mGycm, Automated exposure control for dose reduction was used. CONTRAST: 100ml mL of Isovue 300. Study performed without Oral Contrast TECHNIQUE: Axial images were obtained from above the diaphragm to the pubic rami in the axial plane a t 5 mm thick sections. Reconstructed images are reviewed on the computer in the coronal plane. FINDINGS: Limited CT sections are obtained the lung bases. The lung bases are clear. CT ABDOMEN: There is moderate free air within the anterior nondependent abdomen. Liver: There are scattered hypodensities within the liver likely small hepatic cysts. Spleen: Not identified. Pancreas: Normal Adrenal glands: The adrenal glands are normal. Gallbladder: Normal Kidneys: No masses are evident. There is moderate left hydronephrosis. Hydroureter extends to the lef t hemipelvis. Distal portion of the ureters not clearly identified. No obstructing renal stones are i dentified. No cysts are present. Aorta: Normal Inferior vena cava: Normal. CT PELVIS: There is abundant fecal debris throughout the colon. This extends to the rectum. There appears to be an air-fluid level within the descending colon and sigmoid colon. Distal colonic obstruction should b e considered. Small bowel loops are mildly prominent filled with fluid. Could be related to colonic o bstruction or ileus. The air-fluid level within the pelvis is felt to be related to the colonic obstr uction. However, differential should include abscess. This measures 12.1 x 7.3 cm. Report was called to emergency room physician by Dr. Quezada by telephone at the time of interpretati on. Appendix: Not identified. Urinary bladder: Normal. Genitourinary structures: Uterus and ovaries are not identified. Osseous structures: No suspicious lytic or sclerotic lesions. IMPRESSION: 1. Pneumoperitoneum. This is throughout the abdomen and source is unclear. 2. Abundant fecal retention throughout the colon. 3. Air-fluid level within the sigmoid colon region with fecal debris. There may be a zone of transiti on above the rectum also contains fecal debris. Correlate for distal colonic obstruction. 4. Mild prominence of small bowel loops with fluid. This could be related to the suspected colonic ob struction or ileus. 5. Air-fluid level within the pelvis could be related to a loop of bowel at the distal colonic obstru ction level or abscess. 6. Moderate left hydronephrosis and hydroureter. The obstructing etiology is not identified in the le ft hemipelvis.
[2023-11-16] MEDS: CEFEPIME 2 GM in SODIUM CHLORIDE 0.9% 100 ML IVPB STA (12:47)
[2023-11-16] MEDS: SODIUM CHLORIDE 0.9% 1,000 ML IV STA (12:48)
[2023-11-16] MEDS ORDERED: NALOXONE 0.4 MG/ML 1 ML VIAL IV PRN ×2 (12:53→15:03)
--- NOTE | 2023-11-16 14:10 | P.GSHP ---
History of Present Illness H&P Date: 11/16/23 Chief Complaint: Pneumoperitoneum 68-year-old female with stage III ovarian cancer. Patient sees Dr. Kemp in [place]. Underwent most recent debulking last May. On adjuvant chemotherapy. Last dose of Avastin last Monday. Patient was in the ER yesterday complaining of abdominal discomfort and constipation. Came back to the hospital today with worsening complaints and now has evidence of pneumoperitoneum and significant colonic stool burden. Patient has been passing flatus and has had some hard small stools. Tachycardic in the ER. White blood cell count normal. Left shift present. - Review of Systems Comment: The patient denies any acute changes in vision or hearing, no dysphagia or odynophagia, no chest pain or shortness of breath, no dysuria or hematuria, no headache, no runny nose, no rectal bleeding or melena, no unexplained weight loss Past Medical History Past Medical History: Cancer, Hypertension, Sleep Apnea/CPAP/BIPAP Additional Past Medical History / Comment(s): Osteopenia. 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 ovarian ca History of Any Multi-Drug Resistant Organisms: None Reported Past Surgical History: Appendectomy, Hysterectomy, Orthopedic Surgery Additional Past Surgical History / Comment(s): R ANKLE SURGERY. Colonoscopy 2014(next after 10yr). partial liver removal. spleenectomy Past Anesthesia/Blood Transfusion Reactions: No Reported Reaction Past Psychological History: No Psychological Hx Reported Smoking Status: Never smoker Past Alcohol Use History: None Reported Past Drug Use History: None Reported - Past Family History Mother Family Medical History: Hypertension Father Family Medical History: Cancer, Diabetes Mellitus, Myocardial Infarction ([place]) Additional Family Medical History / Comment(s): Skin cancer. Medications and Allergies Home Medications Medication Instructions Recorded Confirmed Type Valsartan 80 mg PO DAILY 10/25/22 10/25/22 History Sennosides [Senokot] 8.6 mg PO DAILY PRN 11/16/23 11/16/23 History Sennosides [Senokot] 8.6 mg PO HS 11/16/23 11/16/23 History polyethylene glycoL 3350 [Miralax] 17 gm PO DAILY 11/16/23 11/16/23 History polyethylene glycoL 3350 [Miralax] 17 gm PO HS PRN 11/16/23 11/16/23 History Allergies Allergy/AdvReac Type Severity Reaction Status Date / Time Penicillins Allergy Rash/Hives Verified 11/16/23 12:48 Surgical - Exam Vital Signs Temp Pulse Resp BP Pulse Ox 97.5 F L 114 H 18 90/59 97 11/16/23 04:26 11/16/23 04:26 11/16/23 04:26 11/16/23 04:26 11/16/23 04:26 Physical exam: General: Well-developed, well-nourished HEENT: Normocephalic, sclerae nonicteric Abdomen: Distended, diffuse tenderness with involuntary guarding Extremities: No edema Neuro: Alert and oriented Results - Labs 11/16/23 09:13 11/16/23 09:13 Abnormal Lab Results - Last 24 Hours (Table) 11/16/23 11/16/23 Range/Units 09:13 09:13 RBC 3.09 L (3.80-5.40) m/uL Hgb 10.0 L (11.4-16.0) gm/dL Hct 31.0 L (34.0-46.0) % RDW 17.3 H (11.5-15.5) % Neutrophils # 8.6 H (1.3-7.7) k/uL Lymphocytes # 0.5 L (1.0-4.8) k/uL Sodium 131 L (137-145) mmol/L BUN 28 H (7-17) mg/dL Glucose 104 H (74-99) mg/dL Diabetes panel 11/16/23 Range/Units 09:13 Sodium 131 L (137-145) mmol/L Potassium 3.8 (3.5-5.1) mmol/L Chloride 99 (98-107) mmol/L Carbon Dioxide 27 (22-30) mmol/L BUN 28 H (7-17) mg/dL Creatinine 0.70 (0.52-1.04) mg/dL Glucose 104 H (74-99) mg/dL Calcium 8.4 (8.4-10.2) mg/dL Calcium panel 11/16/23 Range/Units 09:13 Calcium 8.4 (8.4-10.2) mg/dL Pituitary panel 11/16/23 Range/Units 09:13 Sodium 131 L (137-145) mmol/L Potassium 3.8 (3.5-5.1) mmol/L Chloride 99 (98-107) mmol/L Carbon Dioxide 27 (22-30) mmol/L BUN 28 H (7-17) mg/dL Creatinine 0.70 (0.52-1.04) mg/dL Glucose 104 H (74-99) mg/dL Calcium 8.4 (8.4-10.2) mg/dL Adrenal panel 11/16/23 Range/Units 09:13 Sodium 131 L (137-145) mmol/L Potassium 3.8 (3.5-5.1) mmol/L Chloride 99 (98-107) mmol/L Carbon Dioxide 27 (22-30) mmol/L BUN 28 H (7-17) mg/dL Creatinine 0.70 (0.52-1.04) mg/dL Glucose 104 H (74-99) mg/dL Calcium 8.4 (8.4-10.2) mg/dL Assessment and Plan (1) Pneumoperitoneum Narrative/Plan: 68-year-old female with CAT scan showing significant pneumoperitoneum and constipation. Inflammatory changes adjacent to the sigmoid colon suggestive that is the likely site of perforation. Discussed case with her SUPERVISOR COLOR PASTE MIXING oncologist Dr. Kemp. He agrees that proceeding with exploration here locally is advised. Will consult oncology given the patient's recent Avastin infusion and will monitor for leukopenia. Begin broad-spectrum attics. IV bolus. Will proceed with exploratory laparotomy, possible bowel resection, possible ostomy. Risks of bleeding, infection, hernia, leak, abscess, progressive sepsis, ureteral injury, respiratory failure and cardiac complications. Patient understands and wishes to proceed. Current Visit: Yes Status: Acute Code(s): K66.8 - OTHER SPECIFIED DISORDERS OF PERITONEUM SNOMED Code(s): 57375003
[2023-11-16] MEDS: LACTATED RINGERS 1,000 ML IV ONE ×3 (14:26→18:16)
[2023-11-16] MEDS: ONDANSETRON 4 MG/2 ML VIAL IVP ONE (14:45)
[2023-11-16] MEDS: DEXAMETHASONE SOD PHOSPHATE 4 MG/ML 1 ML VIAL IVP ONE (14:45)
[2023-11-16] MEDS: MIDAZOLAM 2 MG/2 ML VIAL IVP ONE (14:46)
[2023-11-16] MEDS: fentaNYL (PF) 50 MCG/ML 2 ML AMP IVP ONE (14:47)
[2023-11-16] MEDS ORDERED: diphenhydrAMINE 50 MG/ML 1 ML VIAL IVP PRN (15:03)
[2023-11-16] MEDS ORDERED: NALBUPHINE 10 MG/ML (10 ML MDV) IV PRN (15:03)
--- NOTE | 2023-11-16 15:23 | P.ANPRN ---
Procedure Note - Anesthesia - Epidural/Spinal Epidural Continuous Time Out Performed: Yes Date of Procedure: 11/16/23 Procedure Start Time: 14:45 Procedure Stop Time: 14:55 Location of Patient: PreOp Indication: Acute Post-Operative Pain, Requested by Surgeon Sedation Type: Sedate with meaningful contact maintained Preparation: Sterile Dressing Position: Sitting Catheter: Indwelling Needle Guage: 18 Blood Aspirated: No Pain Paresthesia on Injection Noted: No Events: Uneventful and Well Tolerated
[2023-11-16] MEDS ORDERED: KETAMINE HCL IN 0.9 % NACL 50 MG/5 ML SYRINGE ONE (16:01)
[2023-11-16] MEDS ORDERED: LIDOCAINE 1% INJ 10MG/ML (20 ML MDV) ONE (16:01)
[2023-11-16] MEDS ORDERED: SUCCINYLCHOLINE CHLORIDE 200 MG/10 ML VIAL IV ONE (16:01)
[2023-11-16] MEDS ORDERED: ACETAMINOPHEN IV (For NPO) 1,000 MG/100 ML VIAL ONE (16:01)
[2023-11-16] MEDS ORDERED: fentaNYL (PF) 50 MCG/ML 2 ML AMP ONE (16:01)
[2023-11-16] MEDS ORDERED: MIDAZOLAM 2 MG/2 ML VIAL ONE (16:01)
[2023-11-16] MEDS ORDERED: GLYCOPYRROLATE 0.2 MG/ML 2 ML VIAL ONE (16:01)
[2023-11-16] MEDS ORDERED: PROPOFOL 10 MG/ML 20 ML VIAL IV ONE (16:01)
[2023-11-16] MEDS ORDERED: NEOSTIGMINE 1 MG/ML 10 ML VIAL ONE (16:01)
[2023-11-16] MEDS ORDERED: ROCURONIUM 10 MG/ML (5 ML VIAL) IV ONE (16:01)
[2023-11-16] MEDS: SODIUM CHLORIDE 0.9% 100 ML with metroNIDAZOLE-NS PMX 500 MG IV ONE (16:04)
--- NOTE | 2023-11-16 17:11 | P.CONS ---
History of Present Illness - Reason for Consult Consult date: 11/16/23 medical management Requesting physician: Sebastian Mariscal - Chief Complaint abdominal pain - History of Present Illness Patient is a 68-year-old female with a past medical history of hypertension and stage III ovarian cancer who had debulking in May 2023 and is currently on adjuvant chemotherapy who presents to the ED with abdominal pain. Patient was in the ED yesterday and was treated for constipation with enema and discharged home on GoLytely. Patient only took 1 glass of GoLytely and did not have any solid stool so she returned back to the ED the next day. In the ED CT abdomen pelvis showed pneumoperitoneum and small and large bowel obstruction and also s ignificant constipation. Also seen was moderate left-sided hydronephrosis. Patient was emergently taken to the OR and had sigmoidectomy with colostomy as well as drainage of pelvic abscess. Patient was seen this morning after surgery. She states that her abdominal pain is much better. ROS: 10 ROS reviewed and are negative except as noted in HPI Physical exam General: [Alert and oriented, well nourished, no acute distress]. Eye: [PERRL, EOMI, normal conjunctiva]. HENT: [Normocephalic, clear tympanic membranes, normal hearing, moist oral mu cosa, no scleral icterus, no sinus tenderness]. Neck: [Supple, non-tender, no carotid bruits, no JVD, no lymphadenopathy]. Lungs: [Clear to auscultation and percussion, non-labored respiration]. Heart: [Normal rate, regular rhythm, no murmur, gallop or edema]. Abdomen: [Soft, surgical bandages are intact and dry, colostomy with stool output]. Musculoskeletal: [Normal range of motion and strength, no tenderness or swelling]. Skin: [Skin is warm, dry and pink, no rashes or lesions]. Neurologic: [Awake, alert, and oriented X3, CN II-XII intact]. Psychiatric: [Cooperative, appropriate mood and affect]. Assessment and plan Colon perforation status post sigmoidectomy and colostomy creation Pelvic abscess drainage Peritonitis Patient admitted to the surgical service. Follow-up on cultures from surgery Patient on cefepime and Flagyl. Diet as per primary team. Patient currently n.p.o. Resume IV fluids at 130 cc an hour This morning patient had large amount of stool output from her colostomy Patient's abdominal pain has improved Stage III uterine cancer Status post debulking in may 2023 Patient on adjuvant chemotherapy Hypertension Will hold off on losartan for now as blood pressure is on the low side Anemia Suspect due to anemia chronic disease from malignancy and acute blood loss from surgery No overt signs of bleeding Monitor hemoglobin DVT prophylaxis: Will defer to primary team Past Medical History Past Medical History: Cancer, Hypertension, Sleep Apnea/CPAP/BIPAP Additional Past Medical History / Comment(s): Osteopenia. 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 ovarian ca History of Any Multi-Drug Resistant Organisms: None Reported Past Surgical History: Appendectomy, Hysterectomy, Orthopedic Surgery Additional Past Surgical History / Comment(s): R ANKLE SURGERY. Colonoscopy 2014(next after 10yr). partial liver removal. spleenectomy Past Anesthesia/Blood Transfusion Reactions: No Reported Reaction Past Psychological History: No Psychological Hx Reported Smoking Status: Never smoker Past Alcohol Use History: None Reported Past Drug Use History: None Reported - Past Family History Mother Family Medical History: Hypertension Father Family Medical History: Cancer, Diabetes Mellitus, Myocardial Infarction ([place]) Additional Family Medical History / Comment(s): Skin cancer. Medications and Allergies Home Medications Medication Instructions Recorded Confirmed Type Valsartan 80 mg PO HS 10/25/22 11/16/23 History Sennosides [Senokot] 8.6 mg PO DAILY PRN 11/16/23 11/16/23 History Sennosides [Senokot] 8.6 mg PO HS 11/16/23 11/16/23 History polyethylene glycoL 3350 [Miralax] 17 gm PO DAILY 11/16/23 11/16/23 History polyethylene glycoL 3350 [Miralax] 17 gm PO HS PRN 11/16/23 11/16/23 History Allergies Allergy/AdvReac Type Severity Reaction Status Date / Time Penicillins Allergy Rash/Hives Verified 11/16/23 12:48 Physical Exam Osteopathic Statement: *. No significant issues noted on an osteopathic structural exam other than those noted in the History and Physical/Consult. Vitals: Vital Signs Temp Pulse Pulse Resp BP BP Pulse Ox 11/16/23 15:37 98 11/16/23 15:15 98/52 11/16/23 15:00 130 H 20 100/55 99 11/16/23 14:29 99.3 F 118 H 20 126/66 94 L 11/16/23 14:16 120 H 18 117/68 95 11/16/23 13:04 113 H 16 112/76 97 11/16/23 11:45 103 H 16 128/67 98 11/16/23 07:46 97 16 117/72 97 11/16/23 06:14 86 18 100/54 97 11/16/23 04:26 97.5 F L 114 H 18 90/59 97 Intake and Output 11/16/23 11/16/23 11/16/23 06:59 14:59 22:59 Intake Total 500 200 Balance 500 200 Intake: IV 500 200 Other: Weight 68.946 kg Results CBC & Chem 7: 11/17/23 09:25 11/16/23 09:13 Labs: Abnormal Lab Results - Last 24 Hours (Table) 11/16/23 11/16/23 Range/Units 09:13 09:13 RBC 3.09 L (3.80-5.40) m/uL Hgb 10.0 L (11.4-16.0) gm/dL Hct 31.0 L (34.0-46.0) % RDW 17.3 H (11.5-15.5) % Neutrophils # 8.6 H (1.3-7.7) k/uL Lymphocytes # 0.5 L (1.0-4.8) k/uL Sodium 131 L (137-145) mmol/L BUN 28 H (7-17) mg/dL Glucose 104 H (74-99) mg/dL
--- NOTE | 2023-11-16 18:00 | P.GSCN ---
History of Present Illness Consult date: 11/16/23 Reason for Consult: Left ureteral evaluation Requesting physician: Sebastian Mariscal History of present illness: The patient is a 68-year-old white female with stage 3 ovarian cancer. She is followed by Dr. Kemp and underwent debulking in May 2023. She is now receiving adjuvant chemotherapy. She has recently experienced abdominal pain and upon presentation today was found to have pneumoperitoneum. Dr. Mariscal p erformed a sigmoid resection and drained a pericolonic abscess. He is concerned about the integrity of the left ureter and thus requested an intraoperative consultation. I entered the operating room with the patient in the supine position. Her condition was stable. A small structure was identified which had been divided. This was followed proximally and determined not to be the ureter. The left iliac vessels were palpated. The ureter was not visible, and is likely medial and deep to the surgical field. The surrounding tissues were indurated, and it was felt that dissection to identify the left ureter and confirm that it had not been injured was associated with risk. I am confident that the left ureter has not been injured. The serum creatinine level will be monitored, and if ex cessive drainage is noted it will be sent for creatinine. 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 ovarian ca History of Any Multi-Drug Resistant Organisms: None Reported Past Surgical History: Appendectomy, Hysterectomy, Orthopedic Surgery Additional Past Surgical History / Comment(s): R ANKLE SURGERY. Colonoscopy 2014(next after 10yr). partial liver removal. spleenectomy Past Anesthesia/Blood Transfusion Reactions: No Reported Reaction Past Psychological History: No Psychological Hx Reported Smoking Status: Never smoker Past Alcohol Use History: None Reported Past Drug Use History: None Reported - Past Family History Mother Family Medical History: Hypertension Father Family Medical History: Cancer, Diabetes Mellitus, Myocardial Infarction ([place]) Additional Family Medical History / Comment(s): Skin cancer. Medications and Allergies Home Medications Medication Instructions Recorded Confirmed Type Valsartan 80 mg PO HS 10/25/22 11/16/23 History Sennosides [Senokot] 8.6 mg PO DAILY PRN 11/16/23 11/16/23 History Sennosides [Senokot] 8.6 mg PO HS 11/16/23 11/16/23 History polyethylene glycoL 3350 [Miralax] 17 gm PO DAILY 11/16/23 11/16/23 History polyethylene glycoL 3350 [Miralax] 17 gm PO HS PRN 11/16/23 11/16/23 History Allergies Allergy/AdvReac Type Severity Reaction Status Date / Time Penicillins Allergy Rash/Hives Verified 11/16/23 12:48 Surgical - Exam Vital Signs Temp Pulse Resp BP Pulse Ox 97.5 F L 114 H 18 90/59 97 11/16/23 04:26 11/16/23 04:26 11/16/23 04:26 11/16/23 04:26 11/16/23 04:26 Results - Labs 11/16/23 09:13 11/16/23 09:13 Abnormal Lab Results - Last 24 Hours (Table) 11/16/23 11/16/23 Range/Units 09:13 09:13 RBC 3.09 L (3.80-5.40) m/uL Hgb 10.0 L (11.4-16.0) gm/dL Hct 31.0 L (34.0-46.0) % RDW 17.3 H (11.5-15.5) % Neutrophils # 8.6 H (1.3-7.7) k/uL Lymphocytes # 0.5 L (1.0-4.8) k/uL Sodium 131 L (137-145) mmol/L BUN 28 H (7-17) mg/dL Glucose 104 H (74-99) mg/dL Diabetes panel 11/16/23 Range/Units 09:13 Sodium 131 L (137-145) mmol/L Potassium 3.8 (3.5-5.1) mmol/L Chloride 99 (98-107) mmol/L Carbon Dioxide 27 (22-30) mmol/L BUN 28 H (7-17) mg/dL Creatinine 0.70 (0.52-1.04) mg/dL Glucose 104 H (74-99) mg/dL Calcium 8.4 (8.4-10.2) mg/dL Calcium panel 11/16/23 Range/Units 09:13 Calcium 8.4 (8.4-10.2) mg/dL Pituitary panel 11/16/23 Range/Units 09:13 Sodium 131 L (137-145) mmol/L Potassium 3.8 (3.5-5.1) mmol/L Chloride 99 (98-107) mmol/L Carbon Dioxide 27 (22-30) mmol/L BUN 28 H (7-17) mg/dL Creatinine 0.70 (0.52-1.04) mg/dL Glucose 104 H (74-99) mg/dL Calcium 8.4 (8.4-10.2) mg/dL Adrenal panel 11/16/23 Range/Units 09:13 Sodium 131 L (137-145) mmol/L Potassium 3.8 (3.5-5.1) mmol/L Chloride 99 (98-107) mmol/L Carbon Dioxide 27 (22-30) mmol/L BUN 28 H (7-17) mg/dL Creatinine 0.70 (0.52-1.04) mg/dL Glucose 104 H (74-99) mg/dL Calcium 8.4 (8.4-10.2) mg/dL
[2023-11-16] MEDS: ROPIVACAINE 250 MG, HYDROMORPHONE (PF) 5 MG in SODIUM CHLORIDE 0.9% 200 ML EPIDURAL PRN (18:58)
--- NOTE | 2023-11-16 19:27 | P.OP ---
Date of Procedure: 11/16/23 Procedure(s) Performed: PREOPERATIVE DIAGNOSIS: Peritonitis with colon perforation POSTOPERATIVE DIAGNOSIS: Same PROCEDURE: Sigmoid colectomy with end colostomy, drainage pelvic abscess SURGEON: Davey EBL: 50 mL ANESTHESIA: General COMPLICATIONS: None OPERATIVE PROCEDURE: Patient place in the operative table in the supine position. The patient was placed under general anesthesia. The abdomen was prepped and draped in usual sterile fashion. A vertical incision was made encompassing extending from the suprapubic region above the umbilicus. The fascia was divided as well. Upon entrance into the peritoneal cavity purulent fluid was identified. Cultures were taken. The Bookwalter retractor was uti lized. There were small bowel loops that were gently adherence to the inflamed pelvis. These adhesions between the small bowel and the pelvis were able to be lysed using primarily blunt dissection. No serosal tear was seen. The patient had a large partially gangrenous appearing structure that initially was thought to represent the sigmoid colon itself. This was partially mobilized medially an d in doing so we entered into this cavity that contained a large volume of liquid stool. This was quickly evacuated. As we inspected this cavity more carefully there was no evidence of proximal and distal lumen. In fact as we inspected medial to this open cavity I could feel the sigmoid colon loop there and visualized a 1 cm perforation. This large bulbous area was actually a abscess cavity filled with stool. Now that the anatomy was more easily defined we divided the sigmoid colon proximal to this abscess cavity using a linear stapler. I then divided the mesentery of the sigmoid colon here using LigaSure and 0 silk ties. Distally we divided using a contour stapler. Staple loads were green given the significant thickening of the colon wall. As I inspected the abscess cavity more carefully there was a small tubular structure that appeared to have been adherent to the colon there that we had divided using electrocautery. I was somewhat concerned this may have represented the ureter and at that time I contacted urology to come look at this left lower quadrant area with me. His consult and operative opinion is dictated separately. It was felt as we inspected the structure that this was not the ureter. We thought that the ureter was likely posterior to the posterior lateral wall of the abscess cavity. It was significantly indurated there and chose not to dissect there any further for fear of iatrogenic injury. The abdomen was copiously irrigated with saline. No further bleeding or feculent material was seen. The sigmoid colon was mobilized proximally. A small circular incision was made in the left midabdomen. Dissection through the subcutaneous fat and fascia took place using electrocautery. I bluntly entered the peritoneal cavity and this was further bluntly opened. The bowel was brought out through this defect in the left midabdomen. A drain was brought into the pelvis from the right lower quadrant. This was draped across the pelvis into the area where the abscess had been present. This was sutured to the skin using a 3-0 silk stitch. The midline fascia was then reapproximated using 2 separate double-stranded #1 PDS sutures. The subcutaneous tissues were irrigated. The subcutaneous tissues were closed using 3-0 Vicryl sutures. The skin was then closed using james. 3 separate sites were left open along the midline incision for Telfa wick placement. The ostomy was then addressed. A portion of the pericolonic fat was removed using the LigaSure device. The staple line was then removed using electrocautery. The ostomy was then matured in a craig fashion using interrupted 3-0 Vicryl sutures. An ostomy appliance was then applied. Sterile dressings were then applied to the midline incision. DISPOSITION: Stable to recovery room
[2023-11-16] MEDS: SODIUM CHLORIDE 0.9% 1,000 ML IV SCH (21:00)
[2023-11-16] MEDS: metroNIDAZOLE-NS PMX 500 MG in SALINE 1 100ML.BAG IVPB STA (21:11)
[2023-11-16] MEDS: MORPHINE SULFATE 4 MG/ML SYRINGE IV STA (21:11)
[2023-11-17] MEDS: ACETAMINOPHEN IV (For NPO) 1,000 MG in EMPTY BAG 1 BAG IVPB SCH (00:18)
[2023-11-17] MEDS: HEPARIN SODIUM,PORCINE 5,000 UNIT/ML 1 ML VIAL SQ SCH (00:20)
[2023-11-17] MEDS: PANTOPRAZOLE 40 MG/10 ML VIAL IV SCH (09:07)
[2023-11-17 09:43] LABS: Anisocytosis Slight; Basophils % (A) 0 %; Eosinophils % (A) 0 %; HCT 27.1 % (34.0-46.0); Hypochromasia Slight; Lymphocytes # (A) 0.5 k/uL (1.0-4.8); Lymphocytes % (A) 17 %; MCHC 31.2 g/dL (31.0-37.0); Macrocytosis Marked; Mean Platelet Volume 11.4; Monocytes # (A) 0.2 k/uL (0-1.0); Monocytes % (A) 6 %; Neutrophils # (A) 2.3 k/uL (1.3-7.7); Neutrophils % (A) 73 %; RBC 2.56 m/uL (3.80-5.40); RDW 17.1 % (11.5-15.5); WBC 3.1 k/uL (3.8-10.6)
[2023-11-17 10:06] LABS: HGB 8.5 gm/dL (11.4-16.0); MCV 106.1 fL (80.0-100.0)
[2023-11-17 10:27] LABS: African American GFR (CKD) 85 (>60 ml/min/1.73 sqM); Anion Gap 8 mmol/L; Blood Urea Nitrogen 37 mg/dL (7-17); Calcium 8.4 mg/dL (8.4-10.2); Carbon Dioxide 20 mmol/L (22-30); Chloride 106 mmol/L (98-107); Glucose 103 mg/dL (74-99); Magnesium 2.1 mg/dL (1.6-2.3); Non-African American GFR(CKD) 74 (>60 ml/min/1.73 sqM); Potassium 4.5 mmol/L (3.5-5.1); Sodium 134 mmol/L (137-145)
--- NOTE | 2023-11-17 11:22 | P.PN ---
Progress Note - Text Progress Note Date: 11/17/23 Anesthesia Postop day 1 Status post exploratory laparotomy with epidural day 2 Patient seen and examined. Doing well without complaint. VAS 0 out of 10. No nausea vomiting or pruritus. Ropivacaine 0.1% with Dilaudid 20 mcg/mL at 4 mL an hour. Objective: Vital signs reviewed Lungs: Good chest excursion Abdomen: Appears nondistended Other: Epidural Site Intact without induration. Dressing intact Neuro: No apparent motor block. Sensory within normal limits. Assessment: Status post exploratory laparotomy postop day 1 Plan: Continue current care with your medical management. Anticipate reevaluation tomorrow.
[2023-11-17 11:58] LABS: Glucose,Whole Blood 121 mg/dL (70-110)
[2023-11-17] MEDS: CEFEPIME 2 GM in SODIUM CHLORIDE 0.9% 100 ML IVPB SCH (12:26)
[2023-11-17] MEDS: metroNIDAZOLE-NS PMX 500 MG in SALINE 1 100ML.BAG IVPB SCH (12:28)
--- NOTE | 2023-11-17 13:17 | P.PN ---
Subjective Progress Note Date: 11/17/23 CHIEF COMPLAINT: Peritonitis with colon perforation HISTORY OF PRESENT ILLNESS: Patient is postop day #1 status post sigmoid colectomy with end colostomy and drainage of pelvic abscess. Patient is sitting at bedside chair. Her pain is controlled. She has epidural in place. Ostomy with stool present. RAVI drain 80 mL serosanguineous output. NG tube with bilious output. Afebrile. WBC 3.1 hgb 10 down to 8.5 platelets pending sodium 134 potassium 5.5 creatinine 0.3. Epidural was decreased to 4 due to hypotension. Blood pressure is improved. Patient does report some dizziness sitting at bedside chair PHYSICAL EXAM: VITAL SIGNS: Reviewed. GENERAL: no acute distress. ABDOMEN: Soft. Mildly distended. Incisional dressing clean dry and intact. RAVI drain serosanguineous. Ostomy with stool NEUROLOGIC: Alert and oriented. Cranial nerves II through XII grossly intact. ASSESSMENT: 1. Peritonitis with colon perforation status post sigmoid colectomy with end ostomy and drainage of pelvic abscess 2. History of stage III ovarian cancer status post recent debulking last May and adjuvant chemotherapy. PLAN: -Keep patient n.p.o. -Continue NG tube for decompression -Continue epidural for pain management -Continue IV fluids -Continue antibiotics per infectious disease -GI prophylaxis Protonix and DVT prophylaxis subcu heparin Physician Carpenter Foreman note has been reviewed by physician. Signing provider agrees with the documented findings, assessment, and plan of care. I have personally seen and examined the patient, reviewed the [employer] /PAs history, exam and MDM and agree with the assessment and plan as written. Based on total visit time, I have performed more than 50% of the visit. As above: Patient doing well today. Pain is well-controlled. Epidural was decreased. She does have stool in the ostomy bag. Keep nasogastric tube today but discharge tomorrow if no nausea, ongoing bowel function, and reasonable gastric output. Increase activities. Ostomy nurse consultation. Continue antibiotics. Appreciate infectious disease consultation. Monitor white blood cell count. Objective - Vital Signs Vital signs: Vital Signs Temp 97.5 F L 11/17/23 08:55 Pulse 62 11/17/23 08:55 Resp 16 11/17/23 08:55 BP 122/72 11/17/23 08:55 Pulse Ox 99 11/17/23 08:55 FiO2 Intake & Output 11/16/23 11/17/23 11/17/23 18:59 06:59 18:59 Intake Total 2700 7.3 Output Total 550 380 Balance 2150 -372.7 Weight 46 kg 46 kg Intake: IV 2700 Intake, IV Titration 7.3 Amount Ropivacaine 250 mg 7.3 Hydromorphone (Pf) 5 mg In Sodium Chloride 0.9% 200 ml @ Per Protocol EPIDURAL .Q0M PRN Rx#: [id number] Oral 0 Output: Gastric Drainage 0 Drainage 80 Right Abdomen 80 Urine 500 300 Stool 0 Estimated Blood Loss 50 Other: Voiding Method Indwelling Catheter Indwelling Catheter - Labs CBC & Chem 7: 11/17/23 09:25 11/17/23 09:25 Labs: Abnormal Lab Results - Last 24 Hours (Table) 11/17/23 11/17/23 11/17/23 Range/Units 09:25 09:25 11:56 WBC 3.1 L (3.8-10.6) k/uL RBC 2.56 L (3.80-5.40) m/uL Hgb 8.5 L D (11.4-16.0) gm/dL Hct 27.1 L (34.0-46.0) % MCV 106.1 H D (80.0-100.0) fL RDW 17.1 H (11.5-15.5) % Macrocytosis Marked A Sodium 134 L (137-145) mmol/L Carbon Dioxide 20 L (22-30) mmol/L BUN 37 H (7-17) mg/dL Glucose 103 H (74-99) mg/dL POC Glucose (mg/dL) 121 H (70-110) mg/dL
[2023-11-17 13:35] LABS: Howell-Jolly Bodies Present
[2023-11-17 13:36] LABS: Platelet Count 93 k/uL (150-450)
[2023-11-17 13:37] LABS: Poikilocytosis (M) Present
[2023-11-17 18:43] LABS: Glucose,Whole Blood 100 mg/dL (70-110)
--- NOTE | 2023-11-17 23:03 | P.CONS ---
History of Present Illness - Reason for Consult Consult date: 11/17/23 Perforated colon with chemotherapy Requesting physician: Sebastian Mariscal - Chief Complaint Abdominal pain x 2 days - History of Present Illness Patient is a 68-year-old female with a past medical history significant for hypertension and sleep apnea osteoporosis, stage III ovarian cancer and did have debulking procedure in May 2023 currently on chemotherapy presenting to the hospital for evaluation of abdominal pain and constipation patient initially was discharged from the hospital presenting back the next day because of worsening pain patient did have abdominal pelvis CT this shows evidence of pneumoperitoneum abundant fecal retention throughout the colon air-fluid level within the sigmoid colon region with fecal debris's patient was taken to the OR last night and this patient who is s/p sigmoid colectomy with end colostomy and drainage of the pelvic abscess culture has been obtained patient has been admitted to the hospital infectious disease was consulted for management of antibiotic therapy as the patient did have penicillin allergy that has been many years ago however subsequently patient has taken amoxicillin without any problem patient was complaining of abdominal pain that been going on for few days before presentation the hospital pain was mostly lower abdominal area describing it to be sharp moderate intensity without induration did have some nausea and episode of vomiting and constipation as mentioned earlier on presentation to the hospital patient was running a low-grade fever of 99.3 F no fever have recorded subsequently patient was not tachycardic or hypotensive mildly hypoxic currently on 2 L nasal cannula oxygen initial white count was 9 point 5 repeat is 3.1 creatinine 0.83 cultures are currently pending Review of Systems Positive point and negatives has been mentioned in the HPI, complete review of systems was performed and all other systems are negative Past Medical History Past Medical History: Cancer, Hypertension, Sleep Apnea/CPAP/BIPAP Additional Past Medical History / Comment(s): Osteopenia. PAST [employer] HISTORY: She has no history of STDs. ovarian ca History of Any Multi-Drug Resistant Organisms: None Reported Past Surgical History: Appendectomy, Hysterectomy, Orthopedic Surgery Additional Past Surgical History / Comment(s): R ANKLE SURGERY. Colonoscopy 2014(next after 10yr). partial liver removal. spleenectomy Past Anesthesia/Blood Transfusion Reactions: No Reported Reaction Past Psychological History: No Psychological Hx Reported Smoking Status: Never smoker Past Alcohol Use History: None Reported Past Drug Use History: None Reported - Past Family History Mother Family Medical History: Hypertension Father Family Medical History: Cancer, Diabetes Mellitus, Myocardial Infarction ([place]) Additional Family Medical History / Comment(s): Skin cancer. Medications and Allergies Home Medications Medication Instructions Recorded Confirmed Type Valsartan 80 mg PO HS 10/25/22 11/16/23 History Sennosides [Senokot] 8.6 mg PO DAILY PRN 11/16/23 11/16/23 History Sennosides [Senokot] 8.6 mg PO HS 11/16/23 11/16/23 History polyethylene glycoL 3350 [Miralax] 17 gm PO DAILY 11/16/23 11/16/23 History polyethylene glycoL 3350 [Miralax] 17 gm PO HS PRN 11/16/23 11/16/23 History Allergies Allergy/AdvReac Type Severity Reaction Status Date / Time Penicillins Allergy Rash/Hives Verified 11/16/23 12:48 Physical Exam Vitals: Vital Signs Temp Pulse Pulse Pulse Resp BP BP 11/17/23 08:55 97.5 F L 62 16 122/72 11/17/23 05:28 96/59 11/17/23 04:00 97.5 F L 62 14 89/52 11/17/23 01:50 66 16 11/17/23 00:00 97.5 F L 77 14 100/57 11/16/23 20:45 66 16 11/16/23 20:24 98.1 F 67 16 105/63 11/16/23 19:30 81 16 109/59 11/16/23 19:15 70 17 114/58 11/16/23 19:00 76 16 107/57 11/16/23 18:50 97 F L 77 14 112/55 11/16/23 15:37 11/16/23 15:15 98/52 11/16/23 15:00 130 H 20 100/55 11/16/23 14:29 99.3 F 118 H 20 126/66 11/16/23 14:16 120 H 18 117/68 11/16/23 13:04 113 H 16 112/76 11/16/23 11:45 103 H 16 128/67 Pulse Ox 11/17/23 08:55 99 11/17/23 05:28 11/17/23 04:00 11/17/23 01:50 11/17/23 00:00 99 11/16/23 20:45 11/16/23 20:24 99 11/16/23 19:30 100 11/16/23 19:15 100 11/16/23 19:00 100 11/16/23 18:50 100 11/16/23 15:37 98 11/16/23 15:15 11/16/23 15:00 99 11/16/23 14:29 94 L 11/16/23 14:16 95 11/16/23 13:04 97 11/16/23 11:45 98 Intake and Output 11/16/23 11/17/23 11/17/23 22:59 06:59 14:59 Intake Total 2200 7.3 Output Total 550 380 Balance 1650 -372.7 Intake: IV 2200 Intake, IV Titration 7.3 Amount Ropivacaine 250 mg 7.3 Hydromorphone (Pf) 5 mg In Sodium Chloride 0.9% 200 ml @ Per Protocol EPIDURAL .Q0M PRN Rx#: [id number] Oral 0 Output: Gastric Drainage 0 Drainage 80 Right Abdomen 80 Urine 500 300 Stool 0 Estimated Blood Loss 50 Other: Voiding Method Indwelling Catheter Indwelling Catheter Indwelling Catheter Weight 68.946 kg 46 kg 46 kg GENERAL DESCRIPTION: Elderly female up in the chair, no distress. No tachypnea or accessory muscle of respiration use. HEENT: Shows Pallor , no scleral icterus. Oral mucous membrane is dry. No pharyngeal erythema or thrush NECK: Trachea central, no thyromegaly. LUNGS: Unlabored breathing. Clear to auscultation anteriorly. No wheeze or crackle. HEART: S1, S2, regular rate and rhythm. No loud murmur ABDOMEN: Soft, mild tenderness EXTREMITIES: No edema of feet. SKIN: No rash, no masses palpable. NEUROLOGICAL: The patient is awake, alert, oriented x3, mood and affect normal. Results CBC & Chem 7: 11/17/23 09:25 11/17/23 09:25 Labs: Abnormal Lab Results - Last 24 Hours (Table) 11/17/23 11/17/23 Range/Units 09:25 09:25 WBC 3.1 L (3.8-10.6) k/uL RBC 2.56 L (3.80-5.40) m/uL Hgb 8.5 L D (11.4-16.0) gm/dL Hct 27.1 L (34.0-46.0) % MCV 106.1 H D (80.0-100.0) fL RDW 17.1 H (11.5-15.5) % Macrocytosis Marked A Sodium 134 L (137-145) mmol/L Carbon Dioxide 20 L (22-30) mmol/L BUN 37 H (7-17) mg/dL Glucose 103 H (74-99) mg/dL Assessment and Plan (1) Peritonitis Current Visit: Yes Status: Acute Code(s): K65.9 - PERITONITIS, UNSPECIFIED SNOMED Code(s): 63361623 (2) Penicillin allergy Current Visit: Yes Status: Acute Code(s): Z88.0 - ALLERGY STATUS TO PENICILLIN SNOMED Code(s): 16825526 (3) Pneumoperitoneum Current Visit: Yes Status: Acute Code(s): K66.8 - OTHER SPECIFIED DISORDERS OF PERITONEUM SNOMED Code(s): 15868172 Plan: 1patient presented to the hospital with abdominal pain has been diagnosed with a perforated colon status post laparotomy sigmoid colectomy and drainage of the intra-abdominal abscess we will need to cover for the enteric gram-negative both aerobes and anaerobes 2-patient with a penicillin allergy many years ago subsequently has taken amoxicillin without any problem clinical doubt true penicillin allergy 3-I will start the patient cefepime 2 g every 8 hours and Flagyl 500 every 8 hours while waiting for the culture to finalize Multiple question concern answered We will follow on clinical condition and cultures to further adjust medication if needed Thank you for this consultation we will follow the patient along with you Dictation was produced using [employer] dictation software. please excuse any grammatical, word or spelling errors. Time with Patient: Greater than 30
[2023-11-18 00:10] LABS: Glucose,Whole Blood 81 mg/dL (70-110)
[2023-11-18 06:18] LABS: Glucose,Whole Blood 76 mg/dL (70-110)
[2023-11-18 08:43] LABS: African American GFR (CKD) >90 (>60 ml/min/1.73 sqM); Anion Gap 6 mmol/L; Blood Urea Nitrogen 43 mg/dL (7-17); Calcium 8.5 mg/dL (8.4-10.2); Carbon Dioxide 21 mmol/L (22-30); Chloride 112 mmol/L (98-107); Glucose 65 mg/dL (74-99); Non-African American GFR(CKD) 80 (>60 ml/min/1.73 sqM); Potassium 3.6 mmol/L (3.5-5.1); Sodium 139 mmol/L (137-145)
[2023-11-18 08:49] LABS: Anisocytosis Slight; Basophils % (A) 0 %; Eosinophils % (A) 0 %; HCT 25.3 % (34.0-46.0); HGB 7.9 gm/dL (11.4-16.0); Lymphocytes # (A) 0.6 k/uL (1.0-4.8); Lymphocytes % (A) 12 %; MCH 32.5 pg (25.0-35.0); MCHC 31.2 g/dL (31.0-37.0); MCV 104.1 fL (80.0-100.0); Macrocytosis Moderate; Mean Platelet Volume 11.4; Monocytes # (A) 0.2 k/uL (0-1.0); Monocytes % (A) 4 %; Neutrophils # (A) 4.1 k/uL (1.3-7.7); Neutrophils % (A) 81 %; RBC 2.43 m/uL (3.80-5.40); RDW 17.4 % (11.5-15.5)
[2023-11-18 08:50] LABS: Platelet Count 67 k/uL (150-450)
--- NOTE | 2023-11-18 09:05 | P.PN ---
Progress Note - Text Progress Note Date: 11/18/23 Anesthesia Postop day #2 Status post exploratory laparotomy with epidural day #3 Patient seen and examined. Doing well without complaint. VAS less than 4. No nausea vomiting or pruritus. Ropivacaine 0.1% with Dilaudid 20 mcg/mL at 4 cc an hour. Objective: Vital signs reviewed Lungs: Good chest excursion Abdomen: Appears nondistended Other: Epidural Site Intact without induration. Dressing intact Neuro: No apparent motor block. Sensory within normal limits. Assessment: Status post exploratory laparotomy postop day #2 Plan: Continue current care with your medical management. Anticipate discontinue catheter tomorrow. Communicated to nurse at catheter needs to be discontinued today should be 6 hours after subcu heparin.
--- NOTE | 2023-11-18 09:58 | P.PN ---
Progress Note - Text Progress Note Date: 11/18/23 Anesthesiology Anticipated end of epidural catheter was to be tomorrow. However platelets dropped down to 96 yesterday which appear to be dilutional; on repeat today down to 67. Subcu heparin was given at 9 AM. Ordering to transfuse platelet pack and then pull epidural at 3 PM. This will allow the safest margin of error as it seems chemotherapy is taking hold on blood cell counts. Discussed with Dr. Coleman valadez, nurse, and patient. Discussed signs and symptoms of epidural hematoma with patient and nurse and both state understanding. Patient is to notify nurse immediately of any signs or symptoms of weakness or numbness after epidural pull.
--- NOTE | 2023-11-18 10:05 | P.CONS ---
History of Present Illness - Reason for Consult Consult date: 11/17/23 recent chemo Requesting physician: Sebastian Mariscal - Chief Complaint abdominal pain - History of Present Illness Patient is a 68-year-old female with a significant history of ovarian cancer. Consult was placed due to recent Avastin treatment. Patient follows with Dr. Pérez jules of developmental behavioral physician onc. She received carboplatin/Taxol/Avastin with G-CSF on 11/10/2023. Patient began experiencing abdominal pain and constipation at which time she presented to the ER for further evaluation. Denied n/v, fever and chills. On admission CT abdomen pelvis revealed pneumoperitoneum. Abundant fecal retention throughout the colon. Air-fluid level within the sigmoid colon region with fecal debris. May be a zone of transition above the rectum. Mild prominence of small bowel loops with fluid. Air-fluid level within the pelvis could be related to the loop of bowel at the distal colonic obstruction level or abscess. And moderate left hydronephrosis and hydroureter. General surgery was consulted and patient underwent sigmoid colectomy with end colostomy due to colon perforation and I&D of pelvic abscess. Pt afebrile, continues on IV abx. CBC reviewed, WBC 3.1, ANC 2300, hgb 8.5, plts 93,000 At today's visit patient reports she has been on adjuvant treatment with Avastin/carbo/Taxol since June 2023 and has overall been tolerating regimen well. She has 1 cycle remaining of systemic treatment. At todays visit, pt report some abdominal tenderness, there is small amount of output in colostomy. Review of Systems 10 point ROS is negative except as stated in the HPI Past Medical History Past Medical History: Cancer, Hypertension, Sleep Apnea/CPAP/BIPAP Additional Past Medical History / Comment(s): Osteopenia. 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 ovarian ca History of Any Multi-Drug Resistant Organisms: None Reported Past Surgical History: Appendectomy, Hysterectomy, Orthopedic Surgery Additional Past Surgical History / Comment(s): R ANKLE SURGERY. Colonoscopy 2014(next after 10yr). partial liver removal. spleenectomy Past Anesthesia/Blood Transfusion Reactions: No Reported Reaction Past Psychological History: No Psychological Hx Reported Smoking Status: Never smoker Past Alcohol Use History: None Reported Past Drug Use History: None Reported - Past Family History Mother Family Medical History: Hypertension Father Family Medical History: Cancer, Diabetes Mellitus, Myocardial Infarction ([place]) Additional Family Medical History / Comment(s): Skin cancer. Medications and Allergies Home Medications Medication Instructions Recorded Confirmed Type Valsartan 80 mg PO HS 10/25/22 11/16/23 History Sennosides [Senokot] 8.6 mg PO DAILY PRN 11/16/23 11/16/23 History Sennosides [Senokot] 8.6 mg PO HS 11/16/23 11/16/23 History polyethylene glycoL 3350 [Miralax] 17 gm PO DAILY 11/16/23 11/16/23 History polyethylene glycoL 3350 [Miralax] 17 gm PO HS PRN 11/16/23 11/16/23 History Allergies Allergy/AdvReac Type Severity Reaction Status Date / Time Penicillins Allergy Rash/Hives Verified 11/16/23 12:48 Physical Exam Vitals: Vital Signs Temp Pulse Pulse Pulse Resp BP BP 11/17/23 08:55 97.5 F L 62 16 122/72 11/17/23 05:28 96/59 11/17/23 04:00 97.5 F L 62 14 89/52 11/17/23 01:50 66 16 11/17/23 00:00 97.5 F L 77 14 100/57 11/16/23 20:45 66 16 11/16/23 20:24 98.1 F 67 16 105/63 11/16/23 19:30 81 16 109/59 11/16/23 19:15 70 17 114/58 11/16/23 19:00 76 16 107/57 11/16/23 18:50 97 F L 77 14 112/55 11/16/23 15:37 11/16/23 15:15 98/52 11/16/23 15:00 130 H 20 100/55 11/16/23 14:29 99.3 F 118 H 20 126/66 11/16/23 14:16 120 H 18 117/68 11/16/23 13:04 113 H 16 112/76 Pulse Ox 11/17/23 08:55 99 11/17/23 05:28 11/17/23 04:00 11/17/23 01:50 11/17/23 00:00 99 11/16/23 20:45 11/16/23 20:24 99 11/16/23 19:30 100 05/30/24 19:15 100 11/16/23 19:00 100 11/16/23 18:50 100 11/16/23 15:37 98 11/16/23 15:15 11/16/23 15:00 99 11/16/23 14:29 94 L 11/16/23 14:16 95 11/16/23 13:04 97 Intake and Output 11/16/23 11/17/23 11/17/23 22:59 06:59 14:59 Intake Total 2200 7.3 Output Total 550 380 Balance 1650 -372.7 Intake: IV 2200 Intake, IV Titration 7.3 Amount Ropivacaine 250 mg 7.3 Hydromorphone (Pf) 5 mg In Sodium Chloride 0.9% 200 ml @ Per Protocol EPIDURAL .Q0M PRN Rx#: [id number] Oral 0 Output: Gastric Drainage 0 Drainage 80 Right Abdomen 80 Urine 500 300 Stool 0 Estimated Blood Loss 50 Other: Voiding Method Indwelling Catheter Indwelling Catheter Indwelling Catheter Weight 68.946 kg 46 kg 46 kg - Constitutional General appearance: average body habitus, no acute distress - EENT Eyes: anicteric sclerae, EOMI ENT: hearing grossly normal - Respiratory Respiratory: bilateral: CTA - Cardiovascular Rhythm: regular Heart sounds: normal: S1, S2 - Gastrointestinal Soft. Mildly distended. Incisional dressing clean dry and intact. RAVI drain serosanguineous drainage. Ostomy with stool - Integumentary Integumentary: no cyanotic - Neurologic Neurologic: CNII-XII intact - Musculoskeletal Musculoskeletal: strength equal bilaterally - Psychiatric Psychiatric: A&O x's 3 Results CBC & Chem 7: 11/18/23 08:03 11/18/23 08:03 Labs: Abnormal Lab Results - Last 24 Hours (Table) 11/17/23 11/17/23 11/17/23 Range/Units 09:25 09:25 11:56 WBC 3.1 L (3.8-10.6) k/uL RBC 2.56 L (3.80-5.40) m/uL Hgb 8.5 L D (11.4-16.0) gm/dL Hct 27.1 L (34.0-46.0) % MCV 106.1 H D (80.0-100.0) fL RDW 17.1 H (11.5-15.5) % Macrocytosis Marked A Sodium 134 L (137-145) mmol/L Carbon Dioxide 20 L (22-30) mmol/L BUN 37 H (7-17) mg/dL Glucose 103 H (74-99) mg/dL POC Glucose (mg/dL) 121 H (70-110) mg/dL CT scan - abdomen: report reviewed CT scan - pelvis: report reviewed Assessment and Plan (1) Ovarian cancer Current Visit: Yes Status: Acute Priority: High Code(s): C56.9 - MALIGNANT NEOPLASM OF UNSPECIFIED OVARY SNOMED Code(s): 873081271 (2) Peritonitis Current Visit: Yes Status: Acute Priority: High Code(s): K65.9 - PERITONITIS, UNSPECIFIED SNOMED Code(s): 97987561 (3) Pneumoperitoneum Current Visit: Yes Status: Acute Priority: High Code(s): K66.8 - OTHER SPECIFIED DISORDERS OF PERITONEUM SNOMED Code(s): 85853215 Plan: Peritonitis, colon perforation: Presented with abdominal pain and constipation -CT abdomen pelvis revealed pneumoperitoneum. Abundant fecal retention throughout the colon. Air-fluid level within the sigmoid colon region with fecal debris. May be a zone of transition above the rectum. Mild prominence of small bowel loops with fluid. Air-fluid level within the pelvis could be related to the loop of bowel at the distal colonic obstruction level or abscess. And moderate left hydronephrosis and hydroureter -General surgery was consulted and patient underwent sigmoid colectomy with end colostomy due to colon perforation and I&D of pelvic abscess. -Although rare, Avastin can cause bowel perforation in 1-2% of patients -Pt afebrile, continues on IV abx. Culture pending -CBC reviewed, WBC 3.1, ANC 2300, hgb 8.5, plts 93,000. Patient is 7 days s/p chemo, currently in [place]. She did receive G-CSF with her last cycle, no additional G-CSF needed at this time. Counts will need to be watched closely, CBC daily. Please transfuse for hgb less than 7 and for plts less than 50,000 or if symptomatic -Discussed with patient to notify RN immediately if she begins to experience acute changes in abdominal pain or distension, as she is at higher risk for complications and delayed healing due to recent chemo. -Defer post-op management to surgical team Ovarian cancer: -Patient follows with Dr. Kemp of developmental behavioral physician onc. She underwent surgery in May 2023, and has been on adjuvant treatment with Avastin/carbo/Taxol since June 2023 and has overall been tolerating regimen well. Last received carboplatin/Taxol/Avastin with G-CSF on 11/10/2023, with 1 cycle remaining of systemic treatment -Would recommend discontinuing avastin. Discussed with patient, that any further chemo would need to be held for 4-6 weeks s/p surgery, but will defer this decision to Dr. Kemp. Records will need to forwarded to Dr. Kemp's office -F/u with developmental behavioral physician onc upon discharge Doctor attests: I performed a history and physical examination of this patient, developed impression and plan of care. Discussed with dictator. I agree with dictators note, documented as a scribe
--- NOTE | 2023-11-18 10:59 | P.PN ---
Subjective Progress Note Date: 11/18/23 NAEON. No N/V. No F/C. No SOB or CP. Ambulatory. Pain well controlled on current regimen. Objective - Vital Signs Vital signs: Vital Signs Temp 97.9 F 11/18/23 08:10 Pulse 70 11/18/23 08:10 Resp 18 11/18/23 08:10 BP 122/65 11/18/23 08:10 Pulse Ox 99 11/18/23 08:55 FiO2 Intake & Output 11/17/23 11/18/23 11/18/23 18:59 06:59 18:59 Intake Total 1860 Output Total 270 890 Balance -270 970 Weight 46 kg 47.5 kg Intake: Intake, IV Titration 1860 Amount ACETAMINOPHEN IV (For NPO 200 ) 1,000 mg In Empty Bag 1 bag @ 400 mls/hr IVPB Q6HR [facility] Rx#:[id number] Cefepime 2 gm In Sodium 200 Chloride 0.9% 100 ml @ 25 mls/hr IVPB Q8H [facility] Rx#: [id number] Sodium Chloride 0.9% 1, 1260 000 ml @ 130 mls/hr IV . Q7H42M [facility] Rx#:[id number] metroNIDAZOLE-NS PMX 500 200 mg In Saline 1 100ml.bag @ 100 mls/hr IVPB Q8H [facility] Rx#:[id number] Oral 0 Output: Gastric Drainage 250 Drainage 70 40 Right Abdomen 70 40 Urine 200 600 Other: Voiding Method Indwelling Catheter Indwelling Catheter Indwelling Catheter - Exam Gen: AxO, NAD Pulm: non-labored respirations Abd: soft, midly tender around incisions, mildly distended. ostomy: pink and patent bowel sweat and minimal stool seen. Incision: C/D/I no erythema or drainage seen NGT: intact producing bilious output Haque: intact producing pale yellow UOP RAVI: intact producing serosang output Extrem: non-tender, no edema seen - Labs CBC & Chem 7: 11/18/23 08:03 11/18/23 08:03 Labs: Abnormal Lab Results - Last 24 Hours (Table) 11/17/23 11/17/23 11/18/23 Range/Units 09:25 11:56 08:03 RBC 2.43 L (3.80-5.40) m/uL Hgb 7.9 L (11.4-16.0) gm/dL Hct 25.3 L (34.0-46.0) % MCV 104.1 H (80.0-100.0) fL RDW 17.4 H (11.5-15.5) % Plt Count 93 L 67 L (150-450) k/uL Lymphocytes # 0.5 L 0.6 L (1.0-4.8) k/uL Chloride (98-107) mmol/L Carbon Dioxide (22-30) mmol/L BUN (7-17) mg/dL Glucose (74-99) mg/dL POC Glucose (mg/dL) 121 H (70-110) mg/dL 11/18/23 Range/Units 08:03 RBC (3.80-5.40) m/uL Hgb (11.4-16.0) gm/dL Hct (34.0-46.0) % MCV (80.0-100.0) fL RDW (11.5-15.5) % Plt Count (150-450) k/uL Lymphocytes # (1.0-4.8) k/uL Chloride 112 H (98-107) mmol/L Carbon Dioxide 21 L (22-30) mmol/L BUN 43 H (7-17) mg/dL Glucose 65 L (74-99) mg/dL POC Glucose (mg/dL) (70-110) mg/dL Microbiology - Last 24 Hours (Table) 11/16/23 18:12 Gram Stain - Preliminary Other - Other Assessment and Plan Assessment: Patient is a 68F who is S/P Amanda's procedure for sigmoid colon perforation Plan: -NPO -NGT to LIS -PRN pain and nausea control -DVT/GI PPx -DC epidural -DC haque once epidural removed -Encourage ambulation -Care per primary Elmer Metzger MD General Surgery
--- NOTE | 2023-11-18 11:26 | P.PN ---
Subjective Progress Note Date: 11/18/23 Pt reports no pain today. Anxious to have haque removed. Feels her appetite has improved. Has NGT which pulled 250cc, has gastric drain, which pulled 110cc. Gen: In NAD, non-toxic HEENT: normocephalic, atraumatic, hearing acuity is intant, mucous membranes moist CVS: perfusing all extremities well, no pitting edema, Respiratory: symmetric chest expansion, no accessory muscle use, GI: soft, NTTP, ND, : no suprapubic tenderness, no CVA tenderness MSK/Derm: no rashes, cyanosis Neuro: CN II-XII intact, no motor weakness, Psych: cooperative, euthymic mood, judgment and insight is intact Hospital course: Patient is a 68-year-old female with a past medical history of hypertension and stage III ovarian cancer who had debulking in May 2023 and is currently on adjuvant chemotherapy who presents to the ED with abdominal pain. Patient was in the ED yesterday and was treated for constipation with enema and discharged home on GoLytely. Patient only took 1 glass of GoLytely and did not have any solid stool so she returned back to the ED the next day. In the ED CT abdomen pelvis showed pneumoperitoneum and small and large bowel obstruction and also significant constipation. Also seen was moderate left-sided hydronephrosis. Patient was emergently taken to the OR and had sigmoidectomy with colostomy as well as drainage of pelvic abscess. Patient was seen this morning after surgery. She states that her abdominal pain is much better. Assessment and plan Colon perforation status post sigmoidectomy and colostomy creation Pelvic abscess drainage Peritonitis Patient admitted to the surgical service. Follow-up on cultures from surgery Patient on cefepime and Flagyl. Diet as per primary team. Patient currently n.p.o. Resume IV fluids at 130 cc an hour Stage III uterine cancer Status post debulking in may 2023 Patient on adjuvant chemotherapy Hypertension Will hold off on losartan for now as blood pressure is on the low side Anemia Thrombocytopenia Suspect due to anemia chronic disease from malignancy and acute blood loss from surgery No overt signs of bleeding Monitor hemoglobin 1U PLTs ordered today pulling epidural catheter per anesthesia DVT prophylaxis: Will defer to primary team Objective - Vital Signs Vital signs: Vital Signs Temp 97.9 F 11/18/23 08:10 Pulse 70 06/01/24 08:10 Resp 18 11/18/23 08:10 BP 122/65 11/18/23 08:10 Pulse Ox 99 11/18/23 08:55 FiO2 Intake & Output 11/17/23 11/18/23 11/18/23 18:59 06:59 18:59 Intake Total 1860 Output Total 270 890 Balance -270 970 Weight 46 kg 47.5 kg Intake: Intake, IV Titration 1860 Amount ACETAMINOPHEN IV (For NPO 200 ) 1,000 mg In Empty Bag 1 bag @ 400 mls/hr IVPB Q6HR [facility] Rx#:[id number] Cefepime 2 gm In Sodium 200 Chloride 0.9% 100 ml @ 25 mls/hr IVPB Q8H [facility] Rx#: [id number] Sodium Chloride 0.9% 1, 1260 000 ml @ 130 mls/hr IV . Q7H42M [facility] Rx#:[id number] metroNIDAZOLE-NS PMX 500 200 mg In Saline 1 100ml.bag @ 100 mls/hr IVPB Q8H [facility] Rx#:[id number] Oral 0 Output: Gastric Drainage 250 Drainage 70 40 Right Abdomen 70 40 Urine 200 600 Other: Voiding Method Indwelling Catheter Indwelling Catheter Indwelling Catheter - Labs CBC & Chem 7: 11/18/23 08:03 11/18/23 08:03 Labs: Abnormal Lab Results - Last 24 Hours (Table) 11/17/23 11/17/23 11/18/23 Range/Units 09:25 11:56 08:03 RBC 2.43 L (3.80-5.40) m/uL Hgb 7.9 L (11.4-16.0) gm/dL Hct 25.3 L (34.0-46.0) % MCV 104.1 H (80.0-100.0) fL RDW 17.4 H (11.5-15.5) % Plt Count 93 L 67 L (150-450) k/uL Lymphocytes # 0.5 L 0.6 L (1.0-4.8) k/uL Chloride (98-107) mmol/L Carbon Dioxide (22-30) mmol/L BUN (7-17) mg/dL Glucose (74-99) mg/dL POC Glucose (mg/dL) 121 H (70-110) mg/dL 11/18/23 Range/Units 08:03 RBC (3.80-5.40) m/uL Hgb (11.4-16.0) gm/dL Hct (34.0-46.0) % MCV (80.0-100.0) fL RDW (11.5-15.5) % Plt Count (150-450) k/uL Lymphocytes # (1.0-4.8) k/uL Chloride 112 H (98-107) mmol/L Carbon Dioxide 21 L (22-30) mmol/L BUN 43 H (7-17) mg/dL Glucose 65 L (74-99) mg/dL POC Glucose (mg/dL) (70-110) mg/dL Microbiology - Last 24 Hours (Table) 11/16/23 18:12 Gram Stain - Preliminary Other - Other
[2023-11-18 12:06] LABS: Glucose,Whole Blood 63 mg/dL (70-110)
[2023-11-18] MEDS: DEXTROSE 50% SYRINGE 50 ML IVP ONE ×2 (12:10→18:23)
[2023-11-18 12:34] LABS: Glucose,Whole Blood 119 mg/dL (70-110)
--- NOTE | 2023-11-18 14:45 | P.PN ---
Subjective Progress Note Date: 11/18/23 Principal diagnosis: Reason for follow-up is perforated colon and peritonitis Patient is a 68-year-old female with a past medical history significant for hypertension and sleep apnea osteoporosis, stage III ovarian cancer and did have debulking procedure in May 2023 currently on chemotherapy presenting to the hospital for evaluation of abdominal pain and constipation, patient did have evidence of pneumoperitoneum status post laparotomy sigmoid colectomy and end colostomy and drainage of the pelvic abscess. On today's evaluation that is 11/18/2023, Patient is afebrile patient is currently on 2 L nasal cannula oxygen and denies having any shortness of breath, the patient denies any chest pain or cough, the patient denies any nausea vomiting did not have any abdominal pain and no output in the colostomy. Patient white count is 5.0, creatinine 0.77 cultures currently growing E. coli sensitivities pending Objective - Vital Signs Vital signs: Vital Signs Temp 97.9 F 11/18/23 08:10 Pulse 70 11/18/23 08:10 Resp 18 11/18/23 08:10 BP 122/65 11/18/23 08:10 Pulse Ox 99 11/18/23 08:55 FiO2 Intake & Output 11/17/23 11/18/23 11/18/23 18:59 06:59 18:59 Intake Total 1860 Output Total 270 890 Balance -270 970 Weight 46 kg 47.5 kg Intake: Intake, IV Titration 1860 Amount ACETAMINOPHEN IV (For NPO 200 ) 1,000 mg In Empty Bag 1 bag @ 400 mls/hr IVPB Q6HR [facility] Rx#:[id number] Cefepime 2 gm In Sodium 200 Chloride 0.9% 100 ml @ 25 mls/hr IVPB Q8H [facility] Rx#: [id number] Sodium Chloride 0.9% 1, 1260 000 ml @ 130 mls/hr IV . Q7H42M [facility] Rx#:[id number] metroNIDAZOLE-NS PMX 500 200 mg In Saline 1 100ml.bag @ 100 mls/hr IVPB Q8H [facility] Rx#:[id number] Oral 0 Output: Gastric Drainage 250 Drainage 70 40 Right Abdomen 70 40 Urine 200 600 Other: Voiding Method Indwelling Catheter Indwelling Catheter Indwelling Catheter - Exam GENERAL DESCRIPTION: An elderly female lying in bed in no distress RESPIRATORY SYSTEM: Unlabored breathing , decreased breath sounds at bases HEART: S1 S2 regular rate and rhythm , ABDOMEN: Soft , no tenderness EXTREMITIES: No edema feet - Labs CBC & Chem 7: 11/18/23 08:03 11/18/23 08:03 Labs: Abnormal Lab Results - Last 24 Hours (Table) 11/17/23 11/18/23 11/18/23 Range/Units 09:25 08:03 08:03 RBC 2.43 L (3.80-5.40) m/uL Hgb 7.9 L (11.4-16.0) gm/dL Hct 25.3 L (34.0-46.0) % MCV 104.1 H (80.0-100.0) fL RDW 17.4 H (11.5-15.5) % Plt Count 93 L 67 L (150-450) k/uL Lymphocytes # 0.5 L 0.6 L (1.0-4.8) k/uL Chloride 112 H (98-107) mmol/L Carbon Dioxide 21 L (22-30) mmol/L BUN 43 H (7-17) mg/dL Glucose 65 L (74-99) mg/dL POC Glucose (mg/dL) (70-110) mg/dL 11/18/23 11/18/23 Range/Units 12:04 12:32 RBC (3.80-5.40) m/uL Hgb (11.4-16.0) gm/dL Hct (34.0-46.0) % MCV (80.0-100.0) fL RDW (11.5-15.5) % Plt Count (150-450) k/uL Lymphocytes # (1.0-4.8) k/uL Chloride (98-107) mmol/L Carbon Dioxide (22-30) mmol/L BUN (7-17) mg/dL Glucose (74-99) mg/dL POC Glucose (mg/dL) 63 L 119 H (70-110) mg/dL Microbiology - Last 24 Hours (Table) 11/16/23 18:12 Gram Stain - Preliminary Other - Other Assessment and Plan (1) Peritonitis Current Visit: Yes Status: Acute Priority: High Code(s): K65.9 - PERITONITIS, UNSPECIFIED SNOMED Code(s): 67903377 (2) Penicillin allergy Current Visit: Yes Status: Acute Code(s): Z88.0 - ALLERGY STATUS TO PENICILLIN SNOMED Code(s): 55535867 (3) Pneumoperitoneum Current Visit: Yes Status: Acute Priority: High Code(s): K66.8 - OTHER SPECIFIED DISORDERS OF PERITONEUM SNOMED Code(s): 96165859 Plan: 1patient presented to the hospital with abdominal pain has been diagnosed with a perforated colon status post laparotomy sigmoid colectomy and drainage of the intra-abdominal abscess we will need to cover for the enteric gram-negative both aerobes and anaerobes 2-patient with a penicillin allergy many years ago subsequently has taken amoxicillin without any problem clinical doubt true penicillin allergy 3-patient to continue with cefepime 2 g every 8 hours and Flagyl 500 every 8 hours while waiting for the culture to finalize Dictation was produced using [employer] dictation software. please excuse any grammatical, word or spelling errors. Time with Patient: Less than 30
[2023-11-18 18:20] LABS: Glucose,Whole Blood 65 mg/dL (70-110)
[2023-11-18] MEDS: DEXTROSE 5%-0.45% NACL 1,000 ML IV SCH (18:24)
[2023-11-18 19:00] LABS: Glucose,Whole Blood 104 mg/dL (70-110)
[2023-11-18 20:09] LABS: Glucose,Whole Blood 86 mg/dL (70-110)
[2023-11-19 03:48] LABS: Glucose,Whole Blood 96 mg/dL (70-110)
[2023-11-19 06:04] LABS: Potassium 3.2 mmol/L (3.5-5.1)
[2023-11-19 06:05] LABS: African American GFR (CKD) >90 (>60 ml/min/1.73 sqM); Anion Gap 7 mmol/L; Blood Urea Nitrogen 34 mg/dL (7-17); Calcium 8.4 mg/dL (8.4-10.2); Carbon Dioxide 21 mmol/L (22-30); Chloride 113 mmol/L (98-107); Glucose 78 mg/dL (74-99); Non-African American GFR(CKD) >90 (>60 ml/min/1.73 sqM); Sodium 141 mmol/L (137-145)
[2023-11-19 06:17] LABS: Anisocytosis Slight; Basophils % (A) 0 %; Eosinophils % (A) 1 %; HCT 24.9 % (34.0-46.0); Hypochromasia Slight; Lymphocytes # (A) 0.7 k/uL (1.0-4.8); Lymphocytes % (A) 10 %; MCH 33.8 pg (25.0-35.0); MCHC 32.1 g/dL (31.0-37.0); MCV 105.5 fL (80.0-100.0); Macrocytosis Marked; Mean Platelet Volume 11.7; Monocytes # (A) 0.2 k/uL (0-1.0); Monocytes % (A) 3 %; Neutrophils # (A) 5.8 k/uL (1.3-7.7); Neutrophils % (A) 85 %; RBC 2.36 m/uL (3.80-5.40); RDW 17.1 % (11.5-15.5); WBC 6.9 k/uL (3.8-10.6)
[2023-11-19 06:20] LABS: Platelet Count 95 k/uL (150-450)
[2023-11-19] MEDS: ONDANSETRON 4 MG/2 ML VIAL IVP PRN ×2 (07:14→13:15)
[2023-11-19 08:09] LABS: Glucose,Whole Blood 93 mg/dL (70-110)
--- NOTE | 2023-11-19 11:51 | P.PN ---
Subjective Progress Note Date: 11/19/23 Pt reports no pain today. Anxious to have NGT removed. Has NGT which pulled 200cc, has gastric drain, which pulled 80cc. Epidural was removed yesterday. Pt rec'd 1U PLTs. Micro growing E coli, sensitivities pending Gen: In NAD, non-toxic HEENT: normocephalic, atraumatic, hearing acuity is intant, mucous membranes moist CVS: perfusing all extremities well, no pitting edema, Respiratory: symmetric chest expansion, no accessory muscle use, GI: soft, NTTP, ND, : no suprapubic tenderness, no CVA tenderness MSK/Derm: no rashes, cyanosis Neuro: CN II-XII intact, no motor weakness, Psych: cooperative, euthymic mood, judgment and insight is intact Hospital course: Patient is a 68-year-old female with a past medical history of hypertension and stage III ovarian cancer who had debulking in May 2023 and is currently on adjuvant chemotherapy who presents to the ED with abdominal pain. Patient was in the ED yesterday and was treated for constipation with enema and discharged home on GoLytely. Patient only took 1 glass of GoLytely and did not have any solid stool so she returned back to the ED the next day. In the ED CT abdomen pelvis showed pneumoperitoneum and small and large bowel obstruction and also significant constipation. Also seen was moderate left-sided hydronephrosis. Patient was emergently taken to the OR and had sigmoidectomy with colostomy as well as drainage of pelvic abscess. Patient was seen this morning after surgery. She states that her abdominal pain is much better. Assessment and plan Colon perforation status post sigmoidectomy and colostomy creation Pelvic abscess drainage Peritonitis Patient admitted to the surgical service. Follow-up on cultures from surgery = E coli, sensitivities pending ID is following Patient on cefepime and Flagyl. Diet as per primary team. Patient currently n.p.o. IV fluids switched to D5/0.45NS at 75 cc an hour Stage III uterine cancer Status post debulking in may 2023 Patient on adjuvant chemotherapy Hypertension Will hold off on losartan for now as blood pressure is on the low side Anemia Thrombocytopenia Suspect due to anemia chronic disease from malignancy and acute blood loss from surgery No overt signs of bleeding Monitor hemoglobin 1U PLTs transfused 11/17 epidural catheter per anesthesia was removed 11/17 DVT prophylaxis: Will defer to primary team Objective - Vital Signs Vital signs: Vital Signs Temp 97.9 F 11/19/23 07:50 Pulse 80 11/19/23 07:50 Resp 17 11/19/23 07:50 BP 162/78 11/19/23 07:50 Pulse Ox 96 11/19/23 07:50 FiO2 Intake & Output 11/18/23 11/19/23 11/19/23 18:59 06:59 18:59 Intake Total 250 1425 Output Total 640 340 Balance -390 1085 Weight 77.4 kg Intake: Intake, IV Titration 1425 Amount ACETAMINOPHEN IV (For NPO 200 ) 1,000 mg In Empty Bag 1 bag @ 400 mls/hr IVPB Q6HR [facility] Rx#:[id number] Cefepime 2 gm In Sodium 200 Chloride 0.9% 100 ml @ 25 mls/hr IVPB Q8H [facility] Rx#: [id number] Dextrose 5%-0.45% NaCl 1, 825 000 ml @ 75 mls/hr IV . [id number] [facility] Rx#:[id number] metroNIDAZOLE-NS PMX 500 200 mg In Saline 1 100ml.bag @ 100 mls/hr IVPB Q8H [facility] Rx#:[id number] Blood Product 250 Platelet Pheresis Pas 250 Psoralen Unit [id number] Output: Gastric Drainage 200 Drainage 40 40 Right Abdomen 40 40 Urine 600 100 Uretheral (Cespedes) 600 Stool 0 0 Other: Voiding Method Indwelling Catheter Bedside Commode Bedside Commode # Voids 3 - Labs CBC & Chem 7: 11/19/23 04:56 11/19/23 04:56 Labs: Abnormal Lab Results - Last 24 Hours (Table) 11/18/23 11/18/23 11/18/23 Range/Units 12:04 12:32 18:17 RBC (3.80-5.40) m/uL Hgb (11.4-16.0) gm/dL Hct (34.0-46.0) % MCV (80.0-100.0) fL RDW (11.5-15.5) % Plt Count (150-450) k/uL Lymphocytes # (1.0-4.8) k/uL Macrocytosis Potassium (3.5-5.1) mmol/L Chloride (98-107) mmol/L Carbon Dioxide (22-30) mmol/L BUN (7-17) mg/dL POC Glucose (mg/dL) 63 L 119 H 65 L (70-110) mg/dL 11/19/23 11/19/23 Range/Units 04:56 04:56 RBC 2.36 L (3.80-5.40) m/uL Hgb 8.0 L (11.4-16.0) gm/dL Hct 24.9 L (34.0-46.0) % MCV 105.5 H (80.0-100.0) fL RDW 17.1 H (11.5-15.5) % Plt Count 95 L (150-450) k/uL Lymphocytes # 0.7 L (1.0-4.8) k/uL Macrocytosis Marked A Potassium 3.2 L (3.5-5.1) mmol/L Chloride 113 H (98-107) mmol/L Carbon Dioxide 21 L (22-30) mmol/L BUN 34 H (7-17) mg/dL POC Glucose (mg/dL) (70-110) mg/dL Microbiology - Last 24 Hours (Table) 11/16/23 18:12 Gram Stain - Preliminary Other - Other Wound Culture - Preliminary Escherichia coli
--- NOTE | 2023-11-19 12:52 | P.PN ---
Subjective Progress Note Date: 11/19/23 the patient is resting comfortably in her bed. She has had no significant output through her colostomy. On exam vital signs appear stable. Abdomen soft. Incision is clean dry tach. Status post Amanda procedure for diverticular is. Patient will K receive supportive care. Objective - Vital Signs Vital signs: Vital Signs Temp 97.7 F 11/19/23 11:10 Pulse 79 11/19/23 11:10 Resp 18 11/19/23 11:10 BP 176/81 11/19/23 11:10 Pulse Ox 98 11/19/23 11:10 FiO2 Intake & Output 11/18/23 11/19/23 11/19/23 18:59 06:59 18:59 Intake Total 250 1425 Output Total 640 340 Balance -390 1085 Weight 77.4 kg Intake: Intake, IV Titration 1425 Amount ACETAMINOPHEN IV (For NPO 200 ) 1,000 mg In Empty Bag 1 bag @ 400 mls/hr IVPB Q6HR [facility] Rx#:[id number] Cefepime 2 gm In Sodium 200 Chloride 0.9% 100 ml @ 25 mls/hr IVPB Q8H [facility] Rx#: [id number] Dextrose 5%-0.45% NaCl 1, 825 000 ml @ 75 mls/hr IV . [id number] [facility] Rx#:[id number] metroNIDAZOLE-NS PMX 500 200 mg In Saline 1 100ml.bag @ 100 mls/hr IVPB Q8H [facility] Rx#:[id number] Blood Product 250 Platelet Pheresis Pas 250 Psoralen Unit [id number] Output: Gastric Drainage 200 Drainage 40 40 Right Abdomen 40 40 Urine 600 100 Uretheral (Cespedes) 600 Stool 0 0 Other: Voiding Method Indwelling Catheter Bedside Commode Bedside Commode # Voids 3 - Labs CBC & Chem 7: 11/19/23 04:56 11/19/23 04:56 Labs: Abnormal Lab Results - Last 24 Hours (Table) 11/18/23 11/19/23 11/19/23 Range/Units 18:17 04:56 04:56 RBC 2.36 L (3.80-5.40) m/uL Hgb 8.0 L (11.4-16.0) gm/dL Hct 24.9 L (34.0-46.0) % MCV 105.5 H (80.0-100.0) fL RDW 17.1 H (11.5-15.5) % Plt Count 95 L (150-450) k/uL Lymphocytes # 0.7 L (1.0-4.8) k/uL Macrocytosis Marked A Potassium 3.2 L (3.5-5.1) mmol/L Chloride 113 H (98-107) mmol/L Carbon Dioxide 21 L (22-30) mmol/L BUN 34 H (7-17) mg/dL POC Glucose (mg/dL) 65 L (70-110) mg/dL Microbiology - Last 24 Hours (Table) 11/16/23 18:12 Gram Stain - Preliminary Other - Other Wound Culture - Preliminary Escherichia coli
[2023-11-19 15:49] LABS: Glucose,Whole Blood 91 mg/dL (70-110)
[2023-11-19 20:18] LABS: Glucose,Whole Blood 105 mg/dL (70-110)
[2023-11-19] MEDS: FAMOTIDINE 20 MG/2 ML VIAL IV SCH (20:41)
[2023-11-20 02:04] LABS: Glucose,Whole Blood 102 mg/dL (70-110)
[2023-11-20 06:24] LABS: Glucose,Whole Blood 93 mg/dL (70-110)
[2023-11-20] MEDS: POTASSIUM CHLORIDE 10 MEQ in WATER FOR INJECTION 1 100ML.BAG IVPB SCH (09:29)
--- NOTE | 2023-11-20 12:18 | P.PN ---
Subjective Progress Note Date: 11/20/23 Pt is very uncomfortable today. She reports discomfort with her NG tube, has had no output from her ostomy and is concerned about this, does have some nausea as well. Discussed with surgery the utility of repeating a CT abdomen/pelvis, they would like to see the patient prior to considering this. Gen: In NAD, non-toxic HEENT: normocephalic, atraumatic, hearing acuity is intant, mucous membranes moist CVS: perfusing all extremities well, no pitting edema, Respiratory: symmetric chest expansion, no accessory muscle use, GI: soft, NTTP, ND, : no suprapubic tenderness, no CVA tenderness MSK/Derm: no rashes, cyanosis Neuro: CN II-XII intact, no motor weakness, Psych: cooperative, euthymic mood, judgment and insight is intact Hospital course: Patient is a 68-year-old female with a past medical history of hypertension and stage III ovarian cancer who had debulking in May 2023 and is currently on adjuvant chemotherapy who presents to the ED with abdominal pain. Patient was in the ED yesterday and was treated for constipation with enema and discharged home on GoLytely. Patient only took 1 glass of GoLytely and did not have any solid stool so she returned back to the ED the next day. In the ED CT abdomen pelvis showed pneumoperitoneum and small and large bowel obstruction and also significant constipation. Also seen was moderate left-sided hydronephrosis. Patient was emergently taken to the OR and had sigmoidectomy with colostomy as well as drainage of pelvic abscess. Assessment and plan Colon perforation status post sigmoidectomy and colostomy creation Pelvic abscess drainage Peritonitis Patient admitted to the surgical service. Follow-up on cultures from surgery = E coli, pansensitive; Bacteroides species, sensitivities pending ID is following Patient on cefepime and Flagyl, discussed this with infectious disease today, they are okay with this regimen Diet as per primary team. Patient currently n.p.o. IV fluids switched to D5/0.45NS at 75 cc an hour Stage III uterine cancer Status post debulking in may 2023 Patient on adjuvant chemotherapy Hypertension Will hold off on losartan for now as blood pressure is on the low side Anemia Thrombocytopenia Suspect due to anemia chronic disease from malignancy and acute blood loss from surgery No overt signs of bleeding Monitor hemoglobin 1U PLTs transfused 11/17 epidural catheter per anesthesia was removed 6/1 DVT prophylaxis: Will defer to primary team Objective - Vital Signs Vital signs: Vital Signs Temp 98.2 F 11/20/23 08:59 Pulse 75 11/20/23 08:59 Resp 16 11/20/23 08:59 BP 174/80 11/20/23 08:59 Pulse Ox 96 11/20/23 08:59 FiO2 Intake & Output 11/19/23 11/20/23 11/20/23 18:59 06:59 18:59 Output Total 350 550 100 Balance -350 -550 -100 Weight 77.4 kg 77.6 kg Output: Gastric Drainage 120 Drainage 50 30 100 Right Abdomen 50 30 100 Urine 300 400 Stool 0 Other: Voiding Method Bedside Commode Bedside Commode Bedside Commode # Voids 1 - Labs CBC & Chem 7: 11/19/23 04:56 11/19/23 04:56 Labs: Microbiology - Last 24 Hours (Table) 11/16/23 18:12 Anaerobic Culture - Preliminary Other - Other Bacteroides thetaiotaomicron 11/16/23 18:12 Gram Stain - Final Other - Other Wound Culture - Final Escherichia coli
[2023-11-20 14:33] LABS: Glucose,Whole Blood 88 mg/dL (70-110)
[2023-11-20] MEDS: FUROSEMIDE 10 MG/ML 2 ML VIAL IV ONE (19:01)
[2023-11-20 19:11] LABS: Glucose,Whole Blood 106 mg/dL (70-110)
--- NOTE | 2023-11-20 19:11 | P.PN ---
Subjective Progress Note Date: 11/20/23 Principal diagnosis: Colon perforation Patient doing fairly well today. Has been having some intermittent dry heaves and GERD symptoms. White blood cell count normal at 6.9 yesterday. She is afebrile. Cultures noted showing numerous bacteria. Remains n.p.o. with nasogastric tube in place. NG tube put out 400 cc of bile today. RAVI drain serous. Incision clean and dry. Patient had stool in the first day or so after surgery but that has decreased from the ostomy since then. Mild bloating. Complaining of leg swelling. Objective - Vital Signs Vital signs: Vital Signs Temp 98.0 F 11/20/23 15:48 Pulse 78 11/20/23 15:48 Resp 20 11/20/23 15:48 BP 186/85 11/20/23 15:48 Pulse Ox 96 11/20/23 15:48 FiO2 Intake & Output 11/20/23 11/20/23 11/21/23 06:59 18:59 06:59 Output Total 550 790 Balance -550 -790 Weight 77.6 kg 77.6 kg Output: Gastric Drainage 120 300 Drainage 30 140 Right Abdomen 30 140 Urine 400 350 Stool 0 Other: Voiding Method Bedside Commode Bedside Commode # Voids 1 - Exam Abdomen: Soft, mild tenderness, incision clean and dry, ostomy pink with minimal output Bilateral lower extremity edema present - Labs CBC & Chem 7: 11/19/23 04:56 11/19/23 04:56 Labs: Microbiology - Last 24 Hours (Table) 11/16/23 18:12 Anaerobic Culture - Preliminary Other - Other Bacteroides thetaiotaomicron Clostridium perfringens Assessment and Plan (1) Pneumoperitoneum Narrative/Plan: Patient doing somewhat better. Pain is improved. Cespedes and epidural both removed. She is complaining of lower extremity swelling. Will give 1 dose of Lasix. Keep nasogastric tube in place. Increase activity with physical therapy. Recommend ambulation. Recommend gum chewing. Continue antibiotics per infectious disease. Monitor for leukopenia. Current Visit: Yes Status: Acute Priority: High Code(s): K66.8 - OTHER SPECIFIED DISORDERS OF PERITONEUM SNOMED Code(s): 83998799
[2023-11-20] MEDS: HYDROmorphone 1 MG/ML 1 ML SYRINGE IVP PRN (20:26)
[2023-11-21 02:27] LABS: Glucose,Whole Blood 82 mg/dL (70-110)
[2023-11-21 06:08] LABS: Glucose,Whole Blood 100 mg/dL (70-110)
[2023-11-21 11:53] LABS: Glucose,Whole Blood 92 mg/dL (70-110)
--- NOTE | 2023-11-21 12:27 | P.PN ---
Subjective Progress Note Date: 11/21/23 Hospital course: Patient is a 68-year-old female with a past medical history of hypertension and stage III ovarian cancer who had debulking in May 2023 and is currently on adjuvant chemotherapy who presents to the ED with abdominal pain. Patient was in the ED yesterday and was treated for constipation with enema and discharged home on GoLytely. Patient only took 1 glass of GoLytely and did not have any solid stool so she returned back to the ED the next day. In the ED CT abdomen pelvis showed pneumoperitoneum and small and large bowel obstruction and also significant constipation. Also seen was moderate left-sided hydronephrosis. Patient was emergently taken to the OR and had sigmoidectomy with colostomy as well as drainage of pelvic abscess. November 21, 2023: Up in chair, no chest pain abdominal pain no nausea no vomiting no dizziness, remains afebrile tolerating popsicles Objective - Vital Signs Vital signs: Vital Signs Temp 98.3 F 11/21/23 11:14 Pulse 74 11/21/23 11:14 Resp 16 11/21/23 11:14 BP 172/79 11/21/23 11:14 Pulse Ox 98 11/21/23 11:14 FiO2 Intake & Output 11/20/23 11/21/23 11/21/23 18:59 06:59 18:59 Output Total 790 930 625 Balance -790 -930 -625 Weight 77.6 kg Output: Gastric Drainage 300 Drainage 140 30 25 Right Abdomen 140 30 25 Urine 350 900 600 Other: Voiding Method Bedside Commode Bedside Commode Bedside Commode # Voids 1 - Labs CBC & Chem 7: 11/19/23 04:56 11/19/23 04:56 Labs: Microbiology - Last 24 Hours (Table) 11/16/23 18:12 Anaerobic Culture - Preliminary Other - Other Bacteroides thetaiotaomicron Clostridium perfringens Assessment and Plan Plan: Colon perforation status post sigmoidectomy and colostomy creation Pelvic abscess drainage Peritonitis Patient admitted to the surgical service. Follow-up on cultures from surgery = E coli, pansensitive; Bacteroides species, sensitivities pending ID is following Patient on cefepime and Flagyl Diet as per primary team. IV fluids Stage III uterine cancer Status post debulking in may 2023 Patient on adjuvant chemotherapy Hypertension Will hold off on losartan for now as blood pressure is on the low side Anemia Thrombocytopenia Suspect due to anemia chronic disease from malignancy and acute blood loss from surgery No overt signs of bleeding Monitor hemoglobin 1U PLTs transfused 11/17 epidural catheter per anesthesia was removed 11/17 Platelets up to 93 DVT prophylaxis: Will defer to primary team
[2023-11-21 13:21] LABS: Anisocytosis Slight; Basophils % (A) 0 %; Eosinophils # (A) 0.1 k/uL (0-0.7); Eosinophils % (A) 1 %; HCT 27.4 % (34.0-46.0); Lymphocytes # (A) 1.2 k/uL (1.0-4.8); Lymphocytes % (A) 14 %; MCH 34.1 pg (25.0-35.0); MCHC 32.8 g/dL (31.0-37.0); MCV 103.7 fL (80.0-100.0); Macrocytosis Moderate; Mean Platelet Volume 10.8; Monocytes # (A) 0.3 k/uL (0-1.0); Monocytes % (A) 3 %; Neutrophils # (A) 6.7 k/uL (1.3-7.7); Neutrophils % (A) 80 %; RBC 2.64 m/uL (3.80-5.40); RDW 16.7 % (11.5-15.5); WBC 8.5 k/uL (3.8-10.6)
[2023-11-21 13:41] LABS: Platelet Count 79 k/uL (150-450)
[2023-11-21 13:47] LABS: African American GFR (CKD) >90 (>60 ml/min/1.73 sqM); Anion Gap 7 mmol/L; Blood Urea Nitrogen 21 mg/dL (7-17); Carbon Dioxide 24 mmol/L (22-30); Chloride 108 mmol/L (98-107); Glucose 88 mg/dL (74-99); Magnesium 1.6 mg/dL (1.6-2.3); Non-African American GFR(CKD) >90 (>60 ml/min/1.73 sqM); Potassium 3.1 mmol/L (3.5-5.1); Sodium 139 mmol/L (137-145)
[2023-11-21] MEDS ORDERED: Magnesium Replacement Protocol 1 EACH MISC MISCELLANE PRN (14:43)
[2023-11-21] MEDS ORDERED: Potassium Replacement Protocol 1 EACH MISC MISCELLANE PRN (14:44)
--- NOTE | 2023-11-21 15:34 | P.PN ---
Subjective Progress Note Date: 11/21/23 Principal diagnosis: Colon perforation Patient complaining of fecal impaction today. Still having some dry heaves at times. Mild heartburn. Nasogastric output seems to be about 4 cc since last night. Nursing staff unable to say for sure. Labs noted. Afebrile. Objective - Vital Signs Vital signs: Vital Signs Temp 98.3 F 11/21/23 11:14 Pulse 74 11/21/23 11:14 Resp 16 11/21/23 11:14 BP 172/79 11/21/23 11:14 Pulse Ox 98 11/21/23 11:14 FiO2 Intake & Output 11/20/23 11/21/23 11/21/23 18:59 06:59 18:59 Output Total 790 930 625 Balance -790 -930 -625 Weight 77.6 kg 77.6 kg Output: Gastric Drainage 300 Drainage 140 30 25 Right Abdomen 140 30 25 Urine 350 900 600 Other: Voiding Method Bedside Commode Bedside Commode Bedside Commode # Voids 1 - Exam Abdomen: Soft, nondistended, incision clean and dry, ostomy functioning Rectal: Multiple hard stools present in the rectal vault evacuated manually - Labs CBC & Chem 7: 11/21/23 12:19 11/21/23 12:19 Labs: Abnormal Lab Results - Last 24 Hours (Table) 11/21/23 11/21/23 Range/Units 12:19 12:19 RBC 2.64 L (3.80-5.40) m/uL Hgb 9.0 L (11.4-16.0) gm/dL Hct 27.4 L (34.0-46.0) % MCV 103.7 H (80.0-100.0) fL RDW 16.7 H (11.5-15.5) % Plt Count 79 L (150-450) k/uL Potassium 3.1 L (3.5-5.1) mmol/L Chloride 108 H (98-107) mmol/L BUN 21 H (7-17) mg/dL Creatinine 0.44 L (0.52-1.04) mg/dL Calcium 8.0 L (8.4-10.2) mg/dL Microbiology - Last 24 Hours (Table) 11/16/23 18:12 Anaerobic Culture - Final Other - Other Bacteroides thetaiotaomicron Clostridium perfringens Assessment and Plan (1) Pneumoperitoneum Narrative/Plan: 68-year-old female doing well today. She was disimpacted at this time. She is starting to demonstrate bowel function. Will keep nasogastric tube 1 more day. Monitor output overnight. Hopefully can remove nasogastric tube tomorrow and begin diet. Continue antibiotics. Continue increasing activity. Current Visit: Yes Status: Acute Priority: High Code(s): K66.8 - OTHER SPECIFIED DISORDERS OF PERITONEUM SNOMED Code(s): 78723474
[2023-11-21] MEDS: POTASSIUM CHLORIDE 10 MEQ in WATER FOR INJECTION 1 100ML.BAG IVPB SCH (16:00)
[2023-11-21 16:01] LABS: Howell-Jolly Bodies Present
[2023-11-21] MEDS: MAGNESIUM SULFATE-D5W PMX 1 GM in DEXTROSE/WATER 1 100ML.BAG IVPB SCH (16:41)
--- NOTE | 2023-11-21 18:05 | P.PN ---
Subjective Progress Note Date: 11/21/23 Principal diagnosis: Ovarian malignancy, on chemo and VEGF inhibitor In f/u pt still has NG in place, she has been given some ice chips and popsicles and tolerated. Her abd is a little uncomfortable but, nothing unrealistic. She walked the [place]ullivan today. Objective - Vital Signs Vital signs: Vital Signs Temp 97.3 F L 11/21/23 16:00 Pulse 78 11/21/23 16:00 Resp 16 11/21/23 16:00 BP 188/86 11/21/23 16:00 Pulse Ox 98 11/21/23 16:00 FiO2 Intake & Output 11/20/23 11/21/23 11/21/23 18:59 06:59 18:59 Intake Total 750 Output Total 790 930 625 Balance -790 -930 125 Weight 77.6 kg 77.6 kg Intake: IV 750 Dextrose 5%-0.45% NaCl 1, 750 000 ml @ 75 mls/hr IV . [id number] [facility] Rx#:[id number] Output: Gastric Drainage 300 Drainage 140 30 25 Right Abdomen 140 30 25 Urine 350 900 600 Other: Voiding Method Bedside Commode Bedside Commode Bedside Commode # Voids 1 # Bowel Movements 1 - Constitutional General appearance: Present: average body habitus, cooperative, no acute distress - EENT Eyes: Present: anicteric sclerae, EOMI ENT: Present: hearing grossly normal - Respiratory Details: resp even and unlabored - Cardiovascular Details: sin warm and dry - Peripheral edema leg Peripheral Edema: bilateral: None - Gastrointestinal Gastrointestinal Comment(s): midline incision, dressing clean , no bruising around dressing, abd mildly distended, distant BS heard General gastrointestinal: Present: soft - Neurologic Neurologic: Present: CNII-XII intact - Musculoskeletal Musculoskeletal: Present: strength equal bilaterally - Psychiatric Psychiatric: Present: A&O x's 3, appropriate affect, intact judgment & insight - Labs CBC & Chem 7: 11/21/23 12:19 11/21/23 12:19 Labs: Abnormal Lab Results - Last 24 Hours (Table) 11/21/23 11/21/23 Range/Units 12:19 12:19 RBC 2.64 L (3.80-5.40) m/uL Hgb 9.0 L (11.4-16.0) gm/dL Hct 27.4 L (34.0-46.0) % MCV 103.7 H (80.0-100.0) fL RDW 16.7 H (11.5-15.5) % Plt Count 79 L (150-450) k/uL Potassium 3.1 L (3.5-5.1) mmol/L Chloride 108 H (98-107) mmol/L BUN 21 H (7-17) mg/dL Creatinine 0.44 L (0.52-1.04) mg/dL Calcium 8.0 L (8.4-10.2) mg/dL Microbiology - Last 24 Hours (Table) 11/16/23 18:12 Anaerobic Culture - Final Other - Other Bacteroides thetaiotaomicron Clostridium perfringens Assessment and Plan (1) Pneumoperitoneum Current Visit: Yes Status: Acute Priority: High Code(s): K66.8 - OTHER SPE CIFIED DISORDERS OF PERITONEUM SNOMED Code(s): 21044355 (2) Ovarian cancer Current Visit: Yes Status: Acute Priority: High Code(s): C56.9 - MALIGNANT NEOPLASM OF UNSPECIFIED OVARY SNOMED Code(s): 195011634 Plan: Penumoperitoneum -S/P sigmod resection -Reviewed path with pt and . Perforated and gangrenous ischemic colitis. Focal diverticulitis, abscess formation and serosal fibrous adhesions with serositis. No malignancy. Discussed most likely from VEGF inhibitor medication, less likely from scar tissue from previous debulking surgery. -Defer mgmt of the post op eriod to Surgeon. Pt currently doing well Ovarian carcinoma -Debulking 06/10 -Adjuvant treatment -Concern that above 2/2 VEGF inhibitor. Will send path report to treating [facility] for review -Treatment/maintenance therapy may need to be changed. Pt and will discuss treatment options with [facility] once she is healed from surgery All questions and concerns were answered to the best of my ability at this time.
[2023-11-21] MEDS: hydrALAZINE HCL 20 MG/ML 1 ML VIAL IVP STA (18:06)
[2023-11-21 18:38] LABS: Glucose,Whole Blood 123 mg/dL (70-110)
[2023-11-22 00:08] LABS: Glucose,Whole Blood 91 mg/dL (70-110)
[2023-11-22 06:07] LABS: Glucose,Whole Blood 84 mg/dL (70-110)
[2023-11-22] MEDS: HYDROmorphone 0.5 MG/0.5 ML SYRINGE IVP PRN (08:09)
[2023-11-22] MEDS: bisacodyL 10 MG SUPP RECTAL SCH (08:10)
--- NOTE | 2023-11-22 09:13 | P.PN ---
Subjective Progress Note Date: 11/21/23 Principal diagnosis: Reason for follow-up is perforated colon and peritonitis Patient is a 68-year-old female with a past medical history significant for hypertension and sleep apnea osteoporosis, stage III ovarian cancer and did have debulking procedure in May 2023 currently on chemotherapy presenting to the hospital for evaluation of abdominal pain and constipation, patient did have evidence of pneumoperitoneum status post laparotomy sigmoid colectomy and end colostomy and drainage of the pelvic abscess. On today's evaluation that is 11/21/2023,the patient remains to be afebrile, patient is on room air not requiring supplemental oxygen and denies any leyla rtness of breath no chest pain or cough.Patient still have the NG in some nausea but no vomiting abdominal discomfort has decreased minimal output in the colostomy. Patient white count is 8.5 creatinine 0.44 abdominal culture with Bacteroides E. coli and Clostridium Objective - Vital Signs Vital signs: Vital Signs Temp 98.3 F 11/21/23 11:14 Pulse 74 11/21/23 11:14 Resp 16 11/21/23 11:14 BP 172/79 11/21/23 11:14 Pulse Ox 98 11/21/23 11:14 FiO2 Intake & Output 11/20/23 11/21/23 11/21/23 18:59 06:59 18:59 Output Total 790 930 625 Balance -790 -930 -625 Weight 77.6 kg 77.6 kg Output: Gastric Drainage 300 Drainage 140 30 25 Right Abdomen 140 30 25 Urine 350 900 600 Other: Voiding Method Bedside Commode Bedside Commode Bedside Commode # Voids 1 - Exam GENERAL DESCRIPTION: An elderly female lying in bed in no distress RESPIRATORY SYSTEM: Unlabored breathing , decreased breath sounds at bases HEART: S1 S2 regular rate and rhythm , ABDOMEN: Soft , no tenderness EXTREMITIES: No edema feet - Labs CBC & Chem 7: 11/21/23 12:19 11/21/23 12:19 Labs: Microbiology - Last 24 Hours (Table) 11/16/23 18:12 Anaerobic Culture - Preliminary Other - Other Bacteroides thetaiotaomicron Clostridium perfringens Assessment and Plan (1) Peritonitis Current Visit: Yes Status: Acute Priority: High Code(s): K65.9 - PERITONITIS, UNSPECIFIED SNOMED Code(s): 29209412 (2) Penicillin allergy Current Visit: Yes Status: Acute Code(s): Z88.0 - ALLERGY STATUS TO PENICILLIN SNOMED Code(s): 58273256 (3) Pneumoperitoneum Current Visit: Yes Status: Acute Priority: High Code(s): K66.8 - OTHER SPECIFIED DISORDERS OF PERITONEUM SNOMED Code(s): 52635957 Plan: 1patient presented to the hospital with abdominal pain has been diagnosed with a perforated colon status post laparotomy sigmoid colectomy and drainage of the intra-abdominal abscess we will need to cover for the enteric gram-negative both aerobes and anaerobes 2-patient with a penicillin allergy many years ago subsequently has taken amoxicillin without any problem clinical doubt true penicillin allergy 3-patient abdominal culture currently growing E. coli that is a sensitive pathogen along with Clostridium and Bacteroides, 4-patient is currently covered with cefepime 2 g every 8 hours and Flagyl 500 every 8 hours, hopefully will transition to oral antibiotic on discharge Has been at the bedside questions were answered Dictation was produced using [employer] dictation software. please excuse any grammatical, word or spelling errors. Time with Patient: Less than 30
--- NOTE | 2023-11-22 09:39 | P.PN ---
Subjective Progress Note Date: 11/22/23 Hospital course: Patient is a 68-year-old female with a past medical history of hypertension and stage III ovarian cancer who had debulking in May 2023 and is currently on adjuvant chemotherapy who presents to the ED with abdominal pain. Patient was in the ED yesterday and was treated for constipation with enema and discharged home on GoLytely. Patient only took 1 glass of GoLytely and did not have any solid stool so she returned back to the ED the next day. In the ED CT abdomen pelvis showed pneumoperitoneum and small and large bowel obstruction and also significant constipation. Also seen was moderate left-sided hydronephrosis. Patient was emergently taken to the OR and had sigmoidectomy with colostomy as well as drainage of pelvic abscess. November 21, 2023: Up in chair, no chest pain abdominal pain no nausea no vomiting no dizziness, remains afebrile tolerating popsicles November 22, 2023 Feels better today, no chest pain no abdominal pain no nausea no vomiting no dizziness. Remains afebrile. Objective - Vital Signs Vital signs: Vital Signs Temp 98.2 F 11/22/23 08:00 Pulse 79 11/22/23 08:00 Resp 16 11/22/23 08:00 BP 159/76 11/22/23 08:00 Pulse Ox 97 11/22/23 08:00 FiO2 Intake & Output 11/21/23 11/22/23 11/22/23 18:59 06:59 18:59 Intake Total 750 Output Total 655 300 Balance 95 -300 Weight 77.6 kg 77.7 kg Intake: IV 750 Dextrose 5%-0.45% NaCl 1, 750 000 ml @ 75 mls/hr IV . [id number] Rx#:[id number] Output: Drainage 55 Right Abdomen 55 Urine 600 300 Other: Voiding Method Bedside Commode External Catheter # Bowel Movements 1 - Exam Gen: In NAD, non-toxic HEENT: normocephalic, atraumatic, hearing acuity is intant, mucous membranes moist, NG tube in place CVS: perfusing all extremities well, no pitting edema, Respiratory: symmetric chest expansion, no accessory muscle use, GI: soft, NTTP, ND, : no suprapubic tenderness, no CVA tenderness MSK/Derm: no rashes, cyanosis Neuro: CN II-XII intact, no motor weakness, Psych: cooperative, euthymic mood, judgment and insight is intact - Labs CBC & Chem 7: 11/21/23 12:19 11/21/23 12:19 Labs: Abnormal Lab Results - Last 24 Hours (Table) 11/21/23 11/21/23 11/21/23 Range/Units 12:19 12:19 18:37 RBC 2.64 L (3.80-5.40) m/uL Hgb 9.0 L (11.4-16.0) gm/dL Hct 27.4 L (34.0-46.0) % MCV 103.7 H (80.0-100.0) fL RDW 16.7 H (11.5-15.5) % Plt Count 79 L (150-450) k/uL Potassium 3.1 L (3.5-5.1) mmol/L Chloride 108 H (98-107) mmol/L BUN 21 H (7-17) mg/dL Creatinine 0.44 L (0.52-1.04) mg/dL POC Glucose (mg/dL) 123 H (70-110) mg/dL Calcium 8.0 L (8.4-10.2) mg/dL Microbiology - Last 24 Hours (Table) 11/16/23 18:12 Anaerobic Culture - Final Other - Other Bacteroides thetaiotaomicron Clostridium perfringens Assessment and Plan Plan: Colon perforation with pneumoperitoneum status post sigmoidectomy and colostomy creation Pelvic abscess drainage Peritonitis Patient admitted to the surgical service. Follow-up on cultures from surgery = E coli, pansensitive; Bacteroides species, sensitivities pending ID is following Patient on cefepime and Flagyl Diet as per primary team. Continue supportive care. IV fluids Stage III uterine cancer Status post debulking in may 2023 Patient on adjuvant chemotherapy Hypertension Will hold off on losartan for now as blood pressure is on the low side Anemia Thrombocytopenia Suspect due to anemia chronic disease from malignancy and acute blood loss from surgery No overt signs of bleeding Monitor hemoglobin 1U PLTs transfused 11/17 epidural catheter per anesthesia was removed 11/17 Platelets up to 93 pending today. DVT prophylaxis: Will defer to primary team Gradual improvement.
[2023-11-22 11:47] LABS: Glucose,Whole Blood 95 mg/dL (70-110)
[2023-11-22 11:57] LABS: Anisocytosis Slight; Basophils % (A) 0 %; Eosinophils % (A) 1 %; Lymphocytes % (A) 11 %; MCH 33.4 pg (25.0-35.0); MCHC 32.1 g/dL (31.0-37.0); MCV 103.8 fL (80.0-100.0); Macrocytosis Moderate; Mean Platelet Volume 10.5; Monocytes # (A) 0.3 k/uL (0-1.0); Monocytes % (A) 3 %; Neutrophils # (A) 7.4 k/uL (1.3-7.7); Neutrophils % (A) 82 %; RBC 2.41 m/uL (3.80-5.40); RDW 16.8 % (11.5-15.5)
[2023-11-22 12:10] LABS: Platelet Count 69 k/uL (150-450)
[2023-11-22 12:51] LABS: ALT 11 U/L (4-34); AST 20 U/L (14-36); African American GFR (CKD) >90 (>60 ml/min/1.73 sqM); Albumin 2.2 g/dL (3.5-5.0); Alkaline Phosphatase 82 U/L (38-126); Anion Gap 6 mmol/L; Blood Urea Nitrogen 18 mg/dL (7-17); Calcium 7.7 mg/dL (8.4-10.2); Carbon Dioxide 24 mmol/L (22-30); Chloride 109 mmol/L (98-107); Glucose 90 mg/dL (74-99); Magnesium 1.8 mg/dL (1.6-2.3); Non-African American GFR(CKD) >90 (>60 ml/min/1.73 sqM); Sodium 139 mmol/L (137-145); Total Bilirubin 0.5 mg/dL (0.2-1.3); Total Protein 4.6 g/dL (6.3-8.2)
[2023-11-22] MEDS ORDERED: Potassium Replacement Protocol 1 EACH MISC MISCELLANE PRN (13:33)
[2023-11-22] MEDS ORDERED: HYDROcodone/APAP 5-325MG 1 EACH TAB PO PRN (13:47)
--- NOTE | 2023-11-22 16:13 | P.PN ---
Subjective Progress Note Date: 11/22/23 CHIEF COMPLAINT: Peritonitis with colon perforation HISTORY OF PRESENT ILLNESS: Patient is postop day #6 status post sigmoid colectomy with end colostomy and drainage of pelvic abscess. Patient had report ed abdominal cramping during the night. Her ostomy is functioning. Minimal output through the NG tube. Afebrile. WBC 9.0 potassium is 3.0 PHYSICAL EXAM: VITAL SIGNS: Reviewed. GENERAL: no acute distress. ABDOMEN: Soft. Mildly distended. Incisional dressing clean dry and intact. RAVI drain serosanguineous. Ostomy with stool NEUROLOGIC: Alert and oriented. Cranial nerves II through XII grossly intact. ASSESSMENT: 1. Peritonitis with colon perforation status post sigmoid colectomy with end ostomy and drainage of pelvic abscess 2. History of stage III ovarian cancer 3. Hypokalemia PLAN: -Discontinue NG tube -Start clear liquid diet -Encourage patient to ambulate -Potassium being replaced -[place] and Tylenol added for oral pain medication -Antibiotics per infectious disease -Encourage patient to use incentive spirometer -GI prophylaxis Protonix and DVT prophylaxis subcu heparin Physician Hazardous Materials Handler note has been reviewed by physician. Signing provider agrees with the documented findings, assessment, and plan of care. Objective - Vital Signs Vital signs: Vital Signs Temp 98.2 F 11/22/23 08:00 Pulse 74 11/22/23 14:00 Resp 16 11/22/23 14:00 BP 142/68 11/22/23 12:00 Pulse Ox 97 11/22/23 12:00 FiO2 Intake & Output 11/21/23 11/22/23 11/22/23 18:59 06:59 18:59 Intake Total 750 Output Total 655 300 0 Balance 95 -300 0 Weight 77.6 kg 77.7 kg Intake: IV 750 Dextrose 5%-0.45% NaCl 1, 750 000 ml @ 75 mls/hr IV . [id number] [facility] Rx#:[id number] Output: Drainage 55 Right Abdomen 55 Urine 600 300 Stool 0 Other: Voiding Method Bedside Commode External Catheter External Catheter # Voids 2 # Bowel Movements 1 - Labs CBC & Chem 7: 11/22/23 11:01 11/22/23 11:01 Labs: Abnormal Lab Results - Last 24 Hours (Table) 11/21/23 11/22/23 11/22/23 Range/Units 18:37 11:01 11:01 RBC 2.41 L (3.80-5.40) m/uL Hgb 8.0 L (11.4-16.0) gm/dL Hct 25.0 L (34.0-46.0) % MCV 103.8 H (80.0-100.0) fL RDW 16.8 H (11.5-15.5) % Plt Count 69 L (150-450) k/uL Potassium 3.0 L (3.5-5.1) mmol/L Chloride 109 H (98-107) mmol/L BUN 18 H (7-17) mg/dL Creatinine 0.40 L (0.52-1.04) mg/dL POC Glucose (mg/dL) 123 H (70-110) mg/dL Calcium 7.7 L (8.4-10.2) mg/dL Total Protein 4.6 L (6.3-8.2) g/dL Albumin 2.2 L (3.5-5.0) g/dL Microbiology - Last 24 Hours (Table) 11/16/23 18:12 Anaerobic Culture - Final Other - Other Bacteroides thetaiotaomicron Clostridium perfringens
[2023-11-22] MEDS: POTASSIUM CHLORIDE ER 20 MEQ TAB.ER PO SCH (16:20)
[2023-11-22 20:11] LABS: Glucose,Whole Blood 126 mg/dL (70-110)
[2023-11-23 05:45] LABS: Glucose,Whole Blood 117 mg/dL (70-110)
[2023-11-23] MEDS: ACETAMINOPHEN TAB 325 MG TAB PO PRN (07:39)
[2023-11-23 08:23] LABS: ALT 10 U/L (4-34); AST 22 U/L (14-36); African American GFR (CKD) >90 (>60 ml/min/1.73 sqM); Albumin 2.2 g/dL (3.5-5.0); Alkaline Phosphatase 73 U/L (38-126); Anion Gap 3 mmol/L; Blood Urea Nitrogen 15 mg/dL (7-17); Calcium 7.6 mg/dL (8.4-10.2); Carbon Dioxide 26 mmol/L (22-30); Chloride 110 mmol/L (98-107); Glucose 104 mg/dL (74-99); Non-African American GFR(CKD) >90 (>60 ml/min/1.73 sqM); Potassium 3.4 mmol/L (3.5-5.1); Sodium 139 mmol/L (137-145); Total Bilirubin 0.5 mg/dL (0.2-1.3); Total Protein 4.5 g/dL (6.3-8.2)
[2023-11-23 08:24] LABS: Anisocytosis Slight; Basophils % (A) 0 %; Eosinophils # (A) 0.1 k/uL (0-0.7); Eosinophils % (A) 1 %; HCT 22.4 % (34.0-46.0); HGB 7.4 gm/dL (11.4-16.0); Lymphocytes # (A) 1.2 k/uL (1.0-4.8); Lymphocytes % (A) 15 %; MCH 34.4 pg (25.0-35.0); MCHC 33.1 g/dL (31.0-37.0); MCV 103.7 fL (80.0-100.0); Macrocytosis Moderate; Mean Platelet Volume 10.9; Monocytes # (A) 0.3 k/uL (0-1.0); Monocytes % (A) 4 %; Neutrophils # (A) 6.5 k/uL (1.3-7.7); Neutrophils % (A) 78 %; RBC 2.16 m/uL (3.80-5.40); RDW 17.5 % (11.5-15.5); WBC 8.3 k/uL (3.8-10.6)
[2023-11-23 08:25] LABS: Platelet Count 64 k/uL (150-450)
[2023-11-23] MEDS ORDERED: Potassium Replacement Protocol 1 EACH MISC MISCELLANE PRN (10:36)
--- NOTE | 2023-11-23 10:48 | P.PN ---
Subjective Progress Note Date: 11/23/23 Hospital course: Patient is a 68-year-old female with a past medical history of hypertension and stage III ovarian cancer who had debulking in May 2023 and is currently on adjuvant chemotherapy who presents to the ED with abdominal pain. Patient was in the ED yesterday and was treated for constipation with enema and discharged home on GoLytely. Patient only took 1 glass of GoLytely and did not have any solid stool so she returned back to the ED the next day. In the ED CT abdomen pelvis showed pneumoperitoneum and small and large bowel obstruction and also significant constipation. Also seen was moderate left-sided hydronephrosis. Patient was emergently taken to the OR and had sigmoidectomy with colostomy as well as drainage of pelvic abscess. November 21, 2023: Up in chair, no chest pain abdominal pain no nausea no vomiting no dizziness, remains afebrile tolerating popsicles November 22, 2023 Feels better today, no chest pain no abdominal pain no nausea no vomiting no dizziness. Remains afebrile. November 23, 2023: Much better, no chest pain no abdominal pain no nausea no vomiting no dizziness. Tolerating liquid diet. Objective - Vital Signs Vital signs: Vital Signs Temp 98.6 F 11/22/23 20:30 Pulse 80 11/23/23 04:35 Resp 16 11/23/23 04:35 BP 160/76 11/23/23 04:35 Pulse Ox 96 11/23/23 04:35 FiO2 Intake & Output 11/22/23 11/23/23 11/23/23 18:59 06:59 18:59 Intake Total 900 Output Total 750 500 40 Balance 150 -500 -40 Intake: IV 600 Dextrose 5%-0.45% NaCl 1, 600 000 ml @ 75 mls/hr IV . [id number] [facility] Rx#:[id number] Intake, IV Titration 200 Amount Cefepime 2 gm In Sodium 100 Chloride 0.9% 100 ml @ 25 mls/hr IVPB Q8H [facility] Rx#: [id number] metroNIDAZOLE-NS PMX 500 100 mg In Saline 1 100ml.bag @ 100 mls/hr IVPB Q8H [facility] Rx#:[id number] Oral 100 Output: Gastric Drainage 100 Drainage 50 40 Right Abdomen 50 40 Urine 600 500 Stool 0 0 Other: Voiding Method External Catheter External Catheter # Voids 2 - Exam Gen: In NAD, non-toxic HEENT: normocephalic, atraumatic, hearing acuity is intant, mucous membranes moist, NG tube in place CVS: perfusing all extremities well, no pitting edema, Respiratory: symmetric chest expansion, no accessory muscle use, GI: soft, NTTP, ND, : no suprapubic tenderness, no CVA tenderness MSK/Derm: no rashes, cyanosis Neuro: CN II-XII intact, no motor weakness, Psych: cooperative, euthymic mood, judgment and insight is intact - Labs CBC & Chem 7: 11/23/23 06:59 11/23/23 06:59 Labs: Abnormal Lab Results - Last 24 Hours (Table) 11/22/23 11/22/23 11/22/23 Range/Units 11:01 11:01 20:09 RBC 2.41 L (3.80-5.40) m/uL Hgb 8.0 L (11.4-16.0) gm/dL Hct 25.0 L (34.0-46.0) % MCV 103.8 H (80.0-100.0) fL RDW 16.8 H (11.5-15.5) % Plt Count 69 L (150-450) k/uL Potassium 3.0 L (3.5-5.1) mmol/L Chloride 109 H (98-107) mmol/L BUN 18 H (7-17) mg/dL Creatinine 0.40 L (0.52-1.04) mg/dL Glucose (74-99) mg/dL POC Glucose (mg/dL) 126 H (70-110) mg/dL Calcium 7.7 L (8.4-10.2) mg/dL Total Protein 4.6 L (6.3-8.2) g/dL Albumin 2.2 L (3.5-5.0) g/dL 11/23/23 11/23/23 11/23/23 Range/Units 05:43 06:59 06:59 RBC 2.16 L (3.80-5.40) m/uL Hgb 7.4 L (11.4-16.0) gm/dL Hct 22.4 L (34.0-46.0) % MCV 103.7 H (80.0-100.0) fL RDW 17.5 H (11.5-15.5) % Plt Count 64 L (150-450) k/uL Potassium 3.4 L (3.5-5.1) mmol/L Chloride 110 H (98-107) mmol/L BUN (7-17) mg/dL Creatinine 0.41 L (0.52-1.04) mg/dL Glucose 104 H (74-99) mg/dL POC Glucose (mg/dL) 117 H (70-110) mg/dL Calcium 7.6 L (8.4-10.2) mg/dL Total Protein 4.5 L (6.3-8.2) g/dL Albumin 2.2 L (3.5-5.0) g/dL Assessment and Plan Plan: Colon perforation with pneumoperitoneum status post sigmoidectomy and colostomy creation with peritonitis Pelvic abscess drainage Peritonitis Patient admitted to the surgical service. Follow-up on cultures from surgery = E coli, pansensitive; Bacteroides species, sensitivities pending ID is following Patient on cefepime and Flagyl Diet as per primary team. Continue supportive care. Stage III uterine cancer Status post debulking in may 2023 Patient on adjuvant chemotherapy Hypertension Will hold off on losartan for now as blood pressure is on the low side Anemia Thrombocytopenia Suspect due to anemia chronic disease from malignancy and acute blood loss from surgery No overt signs of bleeding Monitor hemoglobin 1U PLTs transfused 11/17 epidural catheter per anesthesia was removed 11/17 Platelets 64, hemoglobin 7.4. DVT prophylaxis: Will defer to primary team Gradual improvement.
[2023-11-23] MEDS: POTASSIUM CHLORIDE ER 20 MEQ TAB.ER PO SCH (11:03)
[2023-11-23 11:35] LABS: Glucose,Whole Blood 118 mg/dL (70-110)
--- NOTE | 2023-11-23 14:06 | P.PN ---
Subjective Progress Note Date: 11/23/23 CHIEF COMPLAINT: Peritonitis with colon perforation HISTORY OF PRESENT ILLNESS: Patient is postop day #7 status post sigmoid colectomy with end colostomy and drainage of pelvic abscess. Patient had NG tub e yesterday. She denies any nausea or vomiting. She is going slow with the liquids. She did have abdominal cramping again. Ostomy is functioning. Patient having stool from rectum. She did have disimpaction. And she had been receiving Dulcolax suppository. She had multiple stools rectally yesterday. she has been ambulating. afebrile. WBC 8.3 Hgb 7.4 platelets 64 k 3.4 RAVI drain 40 mL serosanguineous output PHYSICAL EXAM: VITAL SIGNS: Reviewed. GENERAL: no acute distress. ABDOMEN: Soft. Nondistended incisional dressing clean dry and intact. RAVI drain serosanguineous. Ostomy with stool NEUROLOGIC: Alert and oriented. Cranial nerves II through XII grossly intact. ASSESSMENT: 1. Peritonitis with colon perforation status post sigmoid colectomy with end ostomy and drainage of pelvic abscess 2. History of stage III ovarian cancer 3. Hypokalemia PLAN: -Continue clear liquid diet -Add Ensure clear for protein supplement -Continue to correct potassium -Continue pain management Tylenol as needed -Antibiotics per infectious disease -Encourage patient to use incentive spirometer -Discontinue Dulcolax suppository -GI prophylaxis Protonix and DVT prophylaxis subcu heparin Physician Brain Picker note has been reviewed by physician. Signing provider agrees with the documented findings, assessment, and plan of care. Patient seems to be doing well today. More ostomy output today. She is hungry. Advance diet to full liquids. Lasix once today. Saline lock IV. Recheck labs tomorrow. Objective - Vital Signs Vital signs: Vital Signs Temp 98.6 F 11/22/23 20:30 Pulse 80 11/23/23 04:35 Resp 16 11/23/23 04:35 BP 160/76 11/23/23 04:35 Pulse Ox 96 11/23/23 04:35 FiO2 Intake & Output 11/22/23 11/23/23 11/23/23 18:59 06:59 18:59 Intake Total 900 Output Total 750 500 840 Balance 150 -500 -840 Weight 77.7 kg Intake: IV 600 Dextrose 5%-0.45% NaCl 1, 600 000 ml @ 75 mls/hr IV . [id number] [facility] Rx#:[id number] Intake, IV Titration 200 Amount Cefepime 2 gm In Sodium 100 Chloride 0.9% 100 ml @ 25 mls/hr IVPB Q8H [facility] Rx#: [id number] metroNIDAZOLE-NS PMX 500 100 mg In Saline 1 100ml.bag @ 100 mls/hr IVPB Q8H [facility] Rx#:[id number] Oral 100 Output: Gastric Drainage 100 Drainage 50 40 Right Abdomen 50 40 Urine 600 500 300 Stool 0 0 500 Other: Voiding Method External Catheter External Catheter # Voids 2 - Labs CBC & Chem 7: 11/23/23 06:59 11/23/23 06:59 Labs: Abnormal Lab Results - Last 24 Hours (Table) 11/22/23 11/23/23 11/23/23 Range/Units 20:09 05:43 06:59 RBC 2.16 L (3.80-5.40) m/uL Hgb 7.4 L (11.4-16.0) gm/dL Hct 22.4 L (34.0-46.0) % MCV 103.7 H (80.0-100.0) fL RDW 17.5 H (11.5-15.5) % Plt Count 64 L (150-450) k/uL Potassium (3.5-5.1) mmol/L Chloride (98-107) mmol/L Creatinine (0.52-1.04) mg/dL Glucose (74-99) mg/dL POC Glucose (mg/dL) 126 H 117 H (70-110) mg/dL Calcium (8.4-10.2) mg/dL Total Protein (6.3-8.2) g/dL Albumin (3.5-5.0) g/dL 11/23/23 11/23/23 Range/Units 06:59 11:33 RBC (3.80-5.40) m/uL Hgb (11.4-16.0) gm/dL Hct (34.0-46.0) % MCV (80.0-100.0) fL RDW (11.5-15.5) % Plt Count (150-450) k/uL Potassium 3.4 L (3.5-5.1) mmol/L Chloride 110 H (98-107) mmol/L Creatinine 0.41 L (0.52-1.04) mg/dL Glucose 104 H (74-99) mg/dL POC Glucose (mg/dL) 118 H (70-110) mg/dL Calcium 7.6 L (8.4-10.2) mg/dL Total Protein 4.5 L (6.3-8.2) g/dL Albumin 2.2 L (3.5-5.0) g/dL
--- NOTE | 2023-11-23 16:36 | P.PN ---
Subjective Progress Note Date: 11/22/23 Principal diagnosis: Reason for follow-up is perforated colon and peritonitis Patient is a 68-year-old female with a past medical history significant for hypertension and sleep apnea osteoporosis, stage III ovarian cancer and did have debulking procedure in May 2023 currently on chemotherapy presenting to the hospital for evaluation of abdominal pain and constipation, patient did have evidence of pneumoperitoneum status post laparotomy sigmoid colectomy and end colostomy and drainage of the pelvic abscess. On today's evaluation that is 11/22/2023, the patient continues to be afebrile, the patient is on room air and breathing comfortably, the Pt denies having any chest pain or cough, the patient NG tube has been discontinued denies any nausea no vomiting minimal output in her colostomy did have some mild abdominal pain. Patient white count is 9.0 creatinine 0.40 Objective - Vital Signs Vital signs: Vital Signs Temp 98.2 F 11/22/23 08:00 Pulse 79 11/22/23 08:00 Resp 16 11/22/23 08:00 BP 159/76 11/22/23 08:00 Pulse Ox 97 11/22/23 08:00 FiO2 - Exam GENERAL DESCRIPTION: An elderly female lying in bed in no distress RESPIRATORY SYSTEM: Unlabored breathing , decreased breath sounds at bases HEART: S1 S2 regular rate and rhythm , ABDOMEN: Soft , no tenderness EXTREMITIES: No edema feet - Labs CBC & Chem 7: 11/23/23 06:59 11/23/23 06:59 Labs: Abnormal Lab Results - Last 24 Hours (Table) 11/22/23 11/23/23 11/23/23 Range/Units 20:09 05:43 06:59 RBC 2.16 L (3.80-5.40) m/uL Hgb 7.4 L (11.4-16.0) gm/dL Hct 22.4 L (34.0-46.0) % MCV 103.7 H (80.0-100.0) fL RDW 17.5 H (11.5-15.5) % Plt Count 64 L (150-450) k/uL Potassium (3.5-5.1) mmol/L Chloride (98-107) mmol/L Creatinine (0.52-1.04) mg/dL Glucose (74-99) mg/dL POC Glucose (mg/dL) 126 H 117 H (70-110) mg/dL Calcium (8.4-10.2) mg/dL Total Protein (6.3-8.2) g/dL Albumin (3.5-5.0) g/dL 11/23/23 11/23/23 Range/Units 06:59 11:33 RBC (3.80-5.40) m/uL Hgb (11.4-16.0) gm/dL Hct (34.0-46.0) % MCV (80.0-100.0) fL RDW (11.5-15.5) % Plt Count (150-450) k/uL Potassium 3.4 L (3.5-5.1) mmol/L Chloride 110 H (98-107) mmol/L Creatinine 0.41 L (0.52-1.04) mg/dL Glucose 104 H (74-99) mg/dL POC Glucose (mg/dL) 118 H (70-110) mg/dL Calcium 7.6 L (8.4-10.2) mg/dL Total Protein 4.5 L (6.3-8.2) g/dL Albumin 2.2 L (3.5-5.0) g/dL Assessment and Plan (1) Peritonitis Current Visit: Yes Status: Acute Priority: High Code(s): K65.9 - PERITONITIS, UNSPECIFIED SNOMED Code(s): 36377232 (2) Penicillin allergy Current Visit: Yes Status: Acute Code(s): Z88.0 - ALLERGY STATUS TO PENICILLIN SNOMED Code(s): 94930687 (3) Pneumoperitoneum Current Visit: Yes Status: Acute Priority: High Code(s): K66.8 - OTHER SPECIFIED DISORDERS OF PERITONEUM SNOMED Code(s): 55610754 Plan: 1patient presented to the hospital with abdominal pain has been diagnosed with a perforated colon status post laparotomy sigmoid colectomy and drainage of the intra-abdominal abscess we will need to cover for the enteric gram-negative both aerobes and anaerobes 2-patient with a penicillin allergy many years ago subsequently has taken amoxicillin without any problem clinical doubt true penicillin allergy 3-patient abdominal culture currently growing E. coli that is a sensitive pathogen along with Clostridium and Bacteroides, 4-patient remains to be afebrile white count has been normal, patient to continue cefepime 2 g every 8 hours and Flagyl 500 every 8 hours, waiting for improvement in the oral intake Family at the bedside questions were answered Dictation was produced using [employer] dictation software. please excuse any grammatical, word or spelling errors. Time with Patient: Less than 30
--- NOTE | 2023-11-23 16:36 | P.PN ---
Subjective Progress Note Date: 11/23/23 Principal diagnosis: Reason for follow-up is perforated colon and peritonitis Patient is a 68-year-old female with a past medical history significant for hypertension and sleep apnea osteoporosis, stage III ovarian cancer and did have debulking procedure in May 2023 currently on chemotherapy presenting to the hospital for evaluation of abdominal pain and constipation, patient did have evidence of pneumoperitoneum status post laparotomy sigmoid colectomy and end colostomy and drainage of the pelvic abscess. On today's evaluation that is 11/23/2023, Patient is afebrile patient is currently on room air and denies having any shortness of breath, the patient de nies any chest pain or cough, the patient denies any nausea vomiting has been complaining of some crampy lower abdominal pain did have output in her colostomy. Patient white count is 8.3 creatinine 0.41 Objective - Vital Signs Vital signs: Vital Signs Temp 98.6 F 11/22/23 20:30 Pulse 80 11/23/23 04:35 Resp 16 11/23/23 04:35 BP 160/76 11/23/23 04:35 Pulse Ox 96 11/23/23 04:35 FiO2 Intake & Output 11/22/23 11/23/23 11/23/23 18:59 06:59 18:59 Intake Total 900 Output Total 750 500 840 Balance 150 -500 -840 Weight 77.7 kg Intake: IV 600 Dextrose 5%-0.45% NaCl 1, 600 000 ml @ 75 mls/hr IV . [id number] [facility] Rx#:[id number] Intake, IV Titration 200 Amount Cefepime 2 gm In Sodium 100 Chloride 0.9% 100 ml @ 25 mls/hr IVPB Q8H [facility] Rx#: [id number] metroNIDAZOLE-NS PMX 500 100 mg In Saline 1 100ml.bag @ 100 mls/hr IVPB Q8H [facility] Rx#:[id number] Oral 100 Output: Gastric Drainage 100 Drainage 50 40 Right Abdomen 50 40 Urine 600 500 300 Stool 0 0 500 Other: Voiding Method External Catheter External Catheter # Voids 2 - Exam GENERAL DESCRIPTION: An elderly female lying in bed in no distress RESPIRATORY SYSTEM: Unlabored breathing , decreased breath sounds at bases HEART: S1 S2 regular rate and rhythm , ABDOMEN: Soft , no tenderness EXTREMITIES: No edema feet - Labs CBC & Chem 7: 11/23/23 06:59 11/23/23 06:59 Labs: Abnormal Lab Results - Last 24 Hours (Table) 11/22/23 11/23/23 11/23/23 Range/Units 20:09 05:43 06:59 RBC 2.16 L (3.80-5.40) m/uL Hgb 7.4 L (11.4-16.0) gm/dL Hct 22.4 L (34.0-46.0) % MCV 103.7 H (80.0-100.0) fL RDW 17.5 H (11.5-15.5) % Plt Count 64 L (150-450) k/uL Potassium (3.5-5.1) mmol/L Chloride (98-107) mmol/L Creatinine (0.52-1.04) mg/dL Glucose (74-99) mg/dL POC Glucose (mg/dL) 126 H 117 H (70-110) mg/dL Calcium (8.4-10.2) mg/dL Total Protein (6.3-8.2) g/dL Albumin (3.5-5.0) g/dL 11/23/23 11/23/23 Range/Units 06:59 11:33 RBC (3.80-5.40) m/uL Hgb (11.4-16.0) gm/dL Hct (34.0-46.0) % MCV (80.0-100.0) fL RDW (11.5-15.5) % Plt Count (150-450) k/uL Potassium 3.4 L (3.5-5.1) mmol/L Chloride 110 H (98-107) mmol/L Creatinine 0.41 L (0.52-1.04) mg/dL Glucose 104 H (74-99) mg/dL POC Glucose (mg/dL) 118 H (70-110) mg/dL Calcium 7.6 L (8.4-10.2) mg/dL Total Protein 4.5 L (6.3-8.2) g/dL Albumin 2.2 L (3.5-5.0) g/dL Assessment and Plan (1) Peritonitis Current Visit: Yes Status: Acute Priority: High Code(s): K65.9 - PERITONITIS, UNSPECIFIED SNOMED Code(s): 09602468 (2) Penicillin allergy Current Visit: Yes Status: Acute Code(s): Z88.0 - ALLERGY STATUS TO PENICILLIN SNOMED Code(s): 37075953 (3) Pneumoperitoneum Current Visit: Yes Status: Acute Priority: High Code(s): K66.8 - OTHER SPECIFIED DISORDERS OF PERITONEUM SNOMED Code(s): 76471616 Plan: 1patient presented to the hospital with abdominal pain has been diagnosed with a perforated colon status post laparotomy sigmoid colectomy and drainage of the intra-abdominal abscess we will need to cover for the enteric gram-negative both aerobes and anaerobes 2-patient with a penicillin allergy many years ago subsequently has taken amoxicillin without any problem clinical doubt true penicillin allergy 3-patient abdominal culture currently growing E. coli that is a sensitive pathogen along with Clostridium and Bacteroides, 4-patient remains to be afebrile white count has been normal, 5-patient to continue cefepime 2 g every 8 hours and Flagyl 500 every 8 hours, will transition to oral antibiotics on discharge Dictation was produced using [employer] dictation software. please excuse any grammatical, word or spelling errors. Time with Patient: Less than 30
[2023-11-23] MEDS: FUROSEMIDE 10 MG/ML 2 ML VIAL IV ONE (16:57)
[2023-11-23 16:58] LABS: Glucose,Whole Blood 105 mg/dL (70-110)
[2023-11-23 19:50] LABS: Glucose,Whole Blood 105 mg/dL (70-110)
[2023-11-24 06:04] LABS: Glucose,Whole Blood 101 mg/dL (70-110)
--- NOTE | 2023-11-24 11:31 | P.PN ---
Subjective Progress Note Date: 11/24/23 Hospital course: Patient is a 68-year-old female with a past medical history of hypertension and stage III ovarian cancer who had debulking in May 2023 and is currently on adjuvant chemotherapy who presents to the ED with abdominal pain. Patient was in the ED yesterday and was treated for constipation with enema and discharged home on GoLytely. Patient only took 1 glass of GoLytely and did not have any solid stool so she returned back to the ED the next day. In the ED CT abdomen pelvis showed pneumoperitoneum and small and large bowel obstruction and also significant constipation. Also seen was moderate left-sided hydronephrosis. Patient was emergently taken to the OR and had sigmoidectomy with colostomy as well as drainage of pelvic abscess. November 21, 2023: Up in chair, no chest pain abdominal pain no nausea no vomiting no dizziness, remains afebrile tolerating popsicles November 22, 2023 Feels better today, no chest pain no abdominal pain no nausea no vomiting no dizziness. Remains afebrile. November 23, 2023: Much better, no chest pain no abdominal pain no nausea no vomiting no dizziness. Tolerating liquid diet. November 24, 2023: Continues to improve, continues to tolerate full liquid diet, reports bowel movements in colostomy bag. No nausea or vomiting. Objective - Vital Signs Vital signs: Vital Signs Temp 98.1 F 11/24/23 08:35 Pulse 95 11/24/23 08:35 Resp 16 11/24/23 08:35 BP 138/65 11/24/23 08:35 Pulse Ox 97 11/24/23 08:35 FiO2 Intake & Output 11/23/23 11/24/23 11/24/23 18:59 06:59 18:59 Intake Total 1400 100 Output Total 2215 1650 Balance -815 -1650 100 Weight 77.7 kg Intake: IV 600 Dextrose 5%-0.45% NaCl 1, 600 000 ml @ 75 mls/hr IV . [id number] [facility] Rx#:[id number] Intake, IV Titration 200 100 Amount Cefepime 2 gm In Sodium 100 100 Chloride 0.9% 100 ml @ 25 mls/hr IVPB Q8H [facility] Rx#: [id number] metroNIDAZOLE-NS PMX 500 100 mg In Saline 1 100ml.bag @ 100 mls/hr IVPB Q8H [facility] Rx#:[id number] Oral 600 Output: Drainage 65 Right Abdomen 65 Urine 1150 1550 Stool 1000 100 Other: Voiding Method External Catheter External Catheter External Catheter # Voids 2 - Exam Gen: In NAD, non-toxic HEENT: normocephalic, atraumatic, hearing acuity is intant, mucous membranes moist, NG tube in place CVS: perfusing all extremities well, no pitting edema, Respiratory: symmetric chest expansion, no accessory muscle use, GI: soft, NTTP, ND, : no suprapubic tenderness, no CVA tenderness MSK/Derm: no rashes, cyanosis Neuro: CN II-XII intact, no motor weakness, Psych: cooperative, euthymic mood, judgment and insight is intact - Labs CBC & Chem 7: 11/23/23 06:59 11/23/23 06:59 Labs: Abnormal Lab Results - Last 24 Hours (Table) 11/23/23 Range/Units 11:33 POC Glucose (mg/dL) 118 H (70-110) mg/dL Assessment and Plan Plan: Colon perforation with pneumoperitoneum status post sigmoidectomy and colostomy creation with peritonitis Pelvic abscess drainage Peritonitis Patient admitted to the surgical service. Follow-up on cultures from surgery = E coli, pansensitive; Bacteroides species, sensitivities pending ID is following Patient on cefepime and Flagyl Diet as per primary team. Continue supportive care. Continues to gradually improve. Stage III uterine cancer Status post debulking in may 2023 Patient on adjuvant chemotherapy Hypertension Will hold off on losartan for now as blood pressure is on the low side Anemia Thrombocytopenia Suspect due to anemia chronic disease from malignancy and acute blood loss from surgery No overt signs of bleeding Monitor hemoglobin 1U PLTs transfused 11/17 epidural catheter per anesthesia was removed 11/17 Platelets 64, hemoglobin 7.4. Pending labs today. DVT prophylaxis: Will defer to primary team Gradual improvement. Disposition: Home in the next 1 to 2 days pending clinical improvement and if continues to tolerate diet.
[2023-11-24 11:41] LABS: Glucose,Whole Blood 122 mg/dL (70-110)
[2023-11-24 12:11] LABS: ALT 11 U/L (4-34); AST 24 U/L (14-36); African American GFR (CKD) >90 (>60 ml/min/1.73 sqM); Albumin 2.2 g/dL (3.5-5.0); Alkaline Phosphatase 72 U/L (38-126); Anion Gap 3 mmol/L; Blood Urea Nitrogen 14 mg/dL (7-17); Calcium 7.7 mg/dL (8.4-10.2); Carbon Dioxide 28 mmol/L (22-30); Chloride 108 mmol/L (98-107); Glucose 110 mg/dL (74-99); Non-African American GFR(CKD) >90 (>60 ml/min/1.73 sqM); Potassium 3.3 mmol/L (3.5-5.1); Sodium 139 mmol/L (137-145); Total Bilirubin 0.5 mg/dL (0.2-1.3); Total Protein 4.6 g/dL (6.3-8.2)
--- NOTE | 2023-11-24 12:37 | P.PN ---
Subjective Progress Note Date: 11/24/23 CHIEF COMPLAINT: Peritonitis with colon perforation HISTORY OF PRESENT ILLNESS: Patient is postop day #8 status post sigmoid colectomy with end colostomy and drainage of pelvic abscess. Patient tolerating full liquid diet. Ostomy is functioning. Her pain is controlled. She denies any nausea or vomiting. Afebrile. RAVI drain 25 mL serosanguineous output. Labs pending. Patient did receive a dose of Lasix yesterday. Lower extremity edema improved. PHYSICAL EXAM: VITAL SIGNS: Reviewed. GENERAL: no acute distress. ABDOMEN: Soft. Nondistended incisional dressing clean dry and intact. RAVI pamela in serosanguineous. Ostomy with stool NEUROLOGIC: Alert and oriented. Cranial nerves II through XII grossly intact. ASSESSMENT: 1. Peritonitis with colon perforation status post sigmoid colectomy with end ostomy and drainage of pelvic abscess 2. History of stage III ovarian cancer 3. Hypokalemia PLAN: -Continue full liquid diet -Continue to correct potassium -Continue pain management Tylenol as needed -Antibiotics per infectious disease -Encourage patient to use incentive spirometer -Check magnesium level -Continue to monitor CBC -Anticipate possible discharge over the weekend -GI prophylaxis Protonix and DVT prophylaxis subcu heparin Physician Shift Stacker note has been reviewed by physician. Signing provider agrees with the documented findings, assessment, and plan of care. I have personally seen and examined the patient, reviewed the CLINICAL TRIALS MANAGER /PAs history, exam and MDM and agree with the assessment and plan as written. Based on total visit time, I have performed more than 50% of the visit. As above: Patient doing well today. Tolerating diet. Will advance diet further. Recheck labs tomorrow. Anticipate discharge Monday. Drain may be removed prior to discharge. Continue antibiotics. Objective - Vital Signs Vital signs: Vital Signs Temp 98.1 F 11/24/23 08:35 Pulse 95 11/24/23 08:35 Resp 16 11/24/23 08:35 BP 138/65 11/24/23 08:35 Pulse Ox 97 11/24/23 08:35 FiO2 Intake & Output 11/23/23 11/24/23 11/24/23 18:59 06:59 18:59 Intake Total 1400 100 Output Total 2215 1650 Balance -815 -1650 100 Weight 77.7 kg Intake: IV 600 Dextrose 5%-0.45% NaCl 1, 600 000 ml @ 75 mls/hr IV . [id number] [facility] Rx#:[id number] Intake, IV Titration 200 100 Amount Cefepime 2 gm In Sodium 100 100 Chloride 0.9% 100 ml @ 25 mls/hr IVPB Q8H [facility] Rx#: [id number] metroNIDAZOLE-NS PMX 500 100 mg In Saline 1 100ml.bag @ 100 mls/hr IVPB Q8H [facility] Rx#:[id number] Oral 600 Output: Drainage 65 Right Abdomen 65 Urine 1150 1550 Stool 1000 100 Other: Voiding Method External Catheter External Catheter External Catheter # Voids 2 - Labs CBC & Chem 7: 11/24/23 11:27 11/24/23 11:27 Labs: Abnormal Lab Results - Last 24 Hours (Table) 11/24/23 11/24/23 Range/Units 11:27 11:39 Potassium 3.3 L (3.5-5.1) mmol/L Chloride 108 H (98-107) mmol/L Creatinine 0.43 L (0.52-1.04) mg/dL Glucose 110 H (74-99) mg/dL POC Glucose (mg/dL) 122 H (70-110) mg/dL Calcium 7.7 L (8.4-10.2) mg/dL Total Protein 4.6 L (6.3-8.2) g/dL Albumin 2.2 L (3.5-5.0) g/dL
[2023-11-24 12:48] LABS: Anisocytosis Slight; Basophils # (A) 0.1 k/uL (0-0.2); Basophils % (A) 1 %; Eosinophils # (A) 0.1 k/uL (0-0.7); Eosinophils % (A) 1 %; HCT 24.7 % (34.0-46.0); HGB 8.1 gm/dL (11.4-16.0); Lymphocytes # (A) 1.2 k/uL (1.0-4.8); Lymphocytes % (A) 12 %; MCH 34.3 pg (25.0-35.0); MCHC 32.7 g/dL (31.0-37.0); MCV 104.7 fL (80.0-100.0); Macrocytosis Moderate; Mean Platelet Volume 10.8; Monocytes # (A) 0.3 k/uL (0-1.0); Monocytes % (A) 3 %; Neutrophils # (A) 7.7 k/uL (1.3-7.7); Neutrophils % (A) 79 %; RBC 2.36 m/uL (3.80-5.40); RDW 17.5 % (11.5-15.5); WBC 9.7 k/uL (3.8-10.6)
[2023-11-24 12:50] LABS: Platelet Count 62 k/uL (150-450)
[2023-11-24] MEDS: POTASSIUM CHLORIDE ER 20 MEQ TAB.ER PO STA (14:10)
[2023-11-24] MEDS: metroNIDAZOLE 500 MG TAB PO SCH (14:10)
--- NOTE | 2023-11-24 15:25 | P.PN ---
Subjective Progress Note Date: 11/24/23 Principal diagnosis: Reason for follow-up is perforated colon and peritonitis Patient is a 68-year-old female with a past medical history significant for hypertension and sleep apnea osteoporosis, stage III ovarian cancer and did have debulking procedure in May 2023 currently on chemotherapy presenting to the hospital for evaluation of abdominal pain and constipation, patient did have evidence of pneumoperitoneum status post laparotomy sigmoid colectomy and end colostomy and drainage of the pelvic abscess. On today's evaluation that is 11/24/2023, patient has been afebrile, patient is breathing comfortably and is currently on room air, patient denies having any significant cough no chest pain shortness of breath, patient denies nausea vomiting or diarrhea and and abdominal discomfort has decreased in intensity feeling better no new symptoms. Patient vertigo is 9.7, creatinine 0.43 Objective - Vital Signs Vital signs: Vital Signs Temp 98.1 F 11/24/23 08:35 Pulse 95 11/24/23 08:35 Resp 16 11/24/23 08:35 BP 138/65 11/24/23 08:35 Pulse Ox 97 11/24/23 08:35 FiO2 Intake & Output 11/23/23 11/24/23 11/24/23 18:59 06:59 18:59 Intake Total 1400 100 Output Total 2215 1650 Balance -815 -1650 100 Weight 77.7 kg Intake: IV 600 Dextrose 5%-0.45% NaCl 1, 600 000 ml @ 75 mls/hr IV . [id number] [facility] Rx#:[id number] Intake, IV Titration 200 100 Amount Cefepime 2 gm In Sodium 100 100 Chloride 0.9% 100 ml @ 25 mls/hr IVPB Q8H [facility] Rx#: [id number] metroNIDAZOLE-NS PMX 500 100 mg In Saline 1 100ml.bag @ 100 mls/hr IVPB Q8H [facility] Rx#:[id number] Oral 600 Output: Drainage 65 Right Abdomen 65 Urine 1150 1550 Stool 1000 100 Other: Voiding Method External Catheter External Catheter External Catheter # Voids 2 - Exam GENERAL DESCRIPTION: An elderly female lying in bed in no distress RESPIRATORY SYSTEM: Unlabored breathing , decreased breath sounds at bases HEART: S1 S2 regular rate and rhythm , ABDOMEN: Soft , no tenderness EXTREMITIES: No edema feet - Labs CBC & Chem 7: 11/24/23 11:27 11/24/23 11:27 Labs: Abnormal Lab Results - Last 24 Hours (Table) 11/24/23 11/24/23 Range/Units 11:27 11:39 Potassium 3.3 L (3.5-5.1) mmol/L Chloride 108 H (98-107) mmol/L Creatinine 0.43 L (0.52-1.04) mg/dL Glucose 110 H (74-99) mg/dL POC Glucose (mg/dL) 122 H (70-110) mg/dL Calcium 7.7 L (8.4-10.2) mg/dL Total Protein 4.6 L (6.3-8.2) g/dL Albumin 2.2 L (3.5-5.0) g/dL Assessment and Plan (1) Peritonitis Current Visit: Yes Status: Acute Priority: High Code(s): K65.9 - PERITONITIS, UNSPECIFIED SNOMED Code(s): 05913735 (2) Penicillin allergy Current Visit: Yes Status: Acute Code(s): Z88.0 - ALLERGY STATUS TO PENICILLIN SNOMED Code(s): 85303459 (3) Pneumoperitoneum Current Visit: Yes Status: Acute Priority: High Code(s): K66.8 - OTHER SPECIFIED DISORDERS OF PERITONEUM SNOMED Code(s): 04618857 Plan: 1patient presented to the hospital with abdominal pain has been diagnosed with a perforated colon status post laparotomy sigmoid colectomy and drainage of the intra-abdominal abscess we will need to cover for the enteric gram-negative both aerobes and anaerobes 2-patient with a penicillin allergy many years ago subsequently has taken amoxicillin without any problem clinical doubt true penicillin allergy 3-patient abdominal culture currently growing E. coli that is a sensitive pathogen along with Clostridium and Bacteroides, 4-patient remains to be afebrile white count has been normal, 5-patient to continue cefepime 2 g every 8 hours and Flagyl 500 every 8 hours while inpatient patient has received about 8 to 9 days of IV antibiotic therapy hopefully finishing therapy with oral Cipro and Flagyl x 10 days on discharge Dictation was produced using [employer] dictation software. please excuse any grammatical, word or spelling errors. Time with Patient: Less than 30
[2023-11-24 17:00] LABS: Glucose,Whole Blood 120 mg/dL (70-110)
[2023-11-24 20:37] LABS: Glucose,Whole Blood 118 mg/dL (70-110)
[2023-11-25] MEDS: METOCLOPRAMIDE 5 MG/ML 2 ML VIAL IVP PRN (04:29)
[2023-11-25 06:13] LABS: Glucose,Whole Blood 103 mg/dL (70-110)
[2023-11-25 08:20] LABS: Anisocytosis Slight; Basophils % (A) 0 %; Eosinophils # (A) 0.1 k/uL (0-0.7); Eosinophils % (A) 1 %; HCT 22.7 % (34.0-46.0); HGB 7.4 gm/dL (11.4-16.0); Lymphocytes # (A) 1.4 k/uL (1.0-4.8); Lymphocytes % (A) 18 %; MCHC 32.5 g/dL (31.0-37.0); MCV 104.6 fL (80.0-100.0); Macrocytosis Moderate; Mean Platelet Volume 10.5; Monocytes # (A) 0.3 k/uL (0-1.0); Monocytes % (A) 4 %; Neutrophils # (A) 5.5 k/uL (1.3-7.7); Neutrophils % (A) 74 %; RBC 2.17 m/uL (3.80-5.40); WBC 7.5 k/uL (3.8-10.6)
[2023-11-25 08:23] LABS: Platelet Count 67 k/uL (150-450)
[2023-11-25 08:51] LABS: ALT 9 U/L (4-34); AST 20 U/L (14-36); African American GFR (CKD) >90 (>60 ml/min/1.73 sqM); Albumin 2.2 g/dL (3.5-5.0); Alkaline Phosphatase 64 U/L (38-126); Anion Gap 1 mmol/L; Blood Urea Nitrogen 14 mg/dL (7-17); Calcium 7.9 mg/dL (8.4-10.2); Carbon Dioxide 29 mmol/L (22-30); Chloride 108 mmol/L (98-107); Glucose 93 mg/dL (74-99); Non-African American GFR(CKD) >90 (>60 ml/min/1.73 sqM); Potassium 3.6 mmol/L (3.5-5.1); Sodium 138 mmol/L (137-145); Total Bilirubin 0.5 mg/dL (0.2-1.3); Total Protein 4.6 g/dL (6.3-8.2)
[2023-11-25 11:34] LABS: Glucose,Whole Blood 133 mg/dL (70-110)
--- NOTE | 2023-11-25 16:25 | P.PN ---
Subjective Progress Note Date: 11/25/23 Pt is doing well today, tolerating diet. Had some abd cramping last night after dinner and felt uncomfortable. Gen: In NAD, non-toxic HEENT: normocephalic, atraumatic, hearing acuity is intant, mucous membranes moist CVS: perfusing all extremities well, no pitting edema, Respiratory: symmetric chest expansion, no accessory muscle use, GI: soft, NTTP, ND, : no suprapubic tenderness, no CVA tenderness MSK/Derm: no rashes, cyanosis Neuro: CN II-XII intact, no motor weakness, Psych: cooperative, euthymic mood, judgment and insight is intact Hospital course: Patient is a 68-year-old female with a past medical history of hypertension and stage III ovarian cancer who had debulking in May 2023 and is currently on adjuvant chemotherapy who presents to the ED with abdominal pain. Patient was in the ED yesterday and was treated for constipation with enema and discharged home on GoLytely. Patient only took 1 glass of GoLytely and did not have any solid stool so she returned back to the ED the next day. In the ED CT abdomen pelvis showed pneumoperitoneum and small and large bowel obstruction and also significant constipation. Also seen was moderate left-sided hydronephrosis. Patient was emergently taken to the OR and had sigmoidectomy with colostomy as well as drainage of pelvic abscess. Assessment and plan Colon perforation status post sigmoidectomy and colostomy creation Pelvic abscess drainage Peritonitis Patient admitted to the surgical service. Follow-up on cultures from surgery = E coli, pansensitive; Bacteroides species ID is following Patient on cefepime and Flagyl Diet as per primary team. Stage III uterine cancer Status post debulking in may 2023 Patient on adjuvant chemotherapy Hypertension Will hold off on losartan for now as blood pressure is on the low side Anemia Thrombocytopenia Suspect due to anemia chronic disease from malignancy and acute blood loss from surgery No overt signs of bleeding Monitor hemoglobin 1U PLTs transfused 11/17 epidural catheter per anesthesia was removed 11/17 DVT prophylaxis: Started on enoxaparin 40mg daily Objective - Vital Signs Vital signs: Vital Signs Temp 98.4 F 11/25/23 16:00 Pulse 91 11/25/23 16:00 Resp 16 11/25/23 16:00 BP 135/79 11/25/23 16:00 Pulse Ox 96 11/25/23 16:00 FiO2 Intake & Output 11/24/23 11/25/23 11/25/23 18:59 06:59 18:59 Intake Total 340 1060 Output Total 220 Balance 340 -220 1060 Intake: Intake, IV Titration 100 180 Amount Cefepime 2 gm In Sodium 100 100 Chloride 0.9% 100 ml @ 25 mls/hr IVPB Q8H [facility] Rx#: [id number] Sodium Chloride 0.9% 100 80 ml @ 0 mls/hr IV .STK-MED ONE with metroNIDAZOLE- NS PMX 500 mg Rx#: [id number] Oral 240 880 Output: Drainage 20 Right Abdomen 20 Stool 200 Other: Voiding Method External Catheter External Catheter External Catheter # Voids 1 - Labs CBC & Chem 7: 11/25/23 08:02 11/25/23 08:02 Labs: Abnormal Lab Results - Last 24 Hours (Table) 11/24/23 11/24/23 11/25/23 Range/Units 16:59 20:29 08:02 RBC 2.17 L (3.80-5.40) m/uL Hgb 7.4 L (11.4-16.0) gm/dL Hct 22.7 L (34.0-46.0) % MCV 104.6 H (80.0-100.0) fL RDW 18.0 H (11.5-15.5) % Plt Count 67 L (150-450) k/uL Chloride (98-107) mmol/L Creatinine (0.52-1.04) mg/dL POC Glucose (mg/dL) 120 H 118 H (70-110) mg/dL Calcium (8.4-10.2) mg/dL Total Protein (6.3-8.2) g/dL Albumin (3.5-5.0) g/dL 11/25/23 11/25/23 Range/Units 08:02 11:33 RBC (3.80-5.40) m/uL Hgb (11.4-16.0) gm/dL Hct (34.0-46.0) % MCV (80.0-100.0) fL RDW (11.5-15.5) % Plt Count (150-450) k/uL Chloride 108 H (98-107) mmol/L Creatinine 0.43 L (0.52-1.04) mg/dL POC Glucose (mg/dL) 133 H (70-110) mg/dL Calcium 7.9 L (8.4-10.2) mg/dL Total Protein 4.6 L (6.3-8.2) g/dL Albumin 2.2 L (3.5-5.0) g/dL
[2023-11-25 16:38] LABS: Glucose,Whole Blood 106 mg/dL (70-110)
--- NOTE | 2023-11-25 18:41 | P.PN ---
Progress Note - Text Progress Note Date: 11/25/23 CHIEF COMPLAINT: Peritonitis with colon perforation HISTORY OF PRESENT ILLNESS: Patient is postop day #9 status post sigmoid colectomy with end colostomy and drainage of pelvic abscess. Patient had abdominal pain and cramping last night. Ostomy is functioning. Patient states she does not feel ready to go home. PHYSICAL EXAM: VITAL SIGNS: Reviewed. GENERAL: no acute distress. ABDOMEN: Soft. Nondistended incisional dressing clean dry and intact. RAVI drain serosanguineous. Ostomy with stool NEUROLOGIC: Alert and oriented. Cranial nerves II through XII grossly intact. ASSESSMENT: 1. Peritonitis with colon perforation status post sigmoid colectomy with end ostomy and drainage of pelvic abscess 2. History of stage III ovarian cancer 3. Hypokalemia PLAN: -Continue Low Fiber Diet -Continue pain management Tylenol as needed -Antibiotics per infectious disease -Encourage patient to use incentive spirometer -Continue to monitor CBC -GI prophylaxis Protonix and DVT prophylaxis subcu heparin
[2023-11-25 20:20] LABS: Glucose,Whole Blood 115 mg/dL (70-110)
[2023-11-26 05:48] LABS: Glucose,Whole Blood 107 mg/dL (70-110)
[2023-11-26] MEDS: ENOXAPARIN 40 MG/0.4 ML SYRINGE SQ SCH (08:33)
--- NOTE | 2023-11-26 09:33 | P.PN ---
Subjective Progress Note Date: 11/26/23 the patient's resting comfortably in her bed. She has had some output through colostomy bag. On exam vital signs appear stable. Abdomen soft. Incisions clean. Status post Hsigmoid colectomy with end colostomy. Patient be discharged home tomorrow. Objective - Vital Signs Vital signs: Vital Signs Temp 98 F 11/26/23 04:00 Pulse 80 11/26/23 04:00 Resp 18 11/26/23 04:00 BP 134/88 11/26/23 04:00 Pulse Ox 97 11/26/23 04:00 FiO2 Intake & Output 11/25/23 11/26/23 11/26/23 18:59 06:59 18:59 Intake Total 1178 Output Total 1350 Balance 1178 -1350 Weight 56.5 kg Intake: Intake, IV Titration 180 Amount Cefepime 2 gm In Sodium 100 Chloride 0.9% 100 ml @ 25 mls/hr IVPB Q8H [facility] Rx#: [id number] Sodium Chloride 0.9% 100 80 ml @ 0 mls/hr IV .STK-MED ONE with metroNIDAZOLE- NS PMX 500 mg Rx#: [id number] Oral 998 Output: Urine 1350 Other: Voiding Method External Catheter External Catheter # Voids 1 # Bowel Movements 1 - Labs CBC & Chem 7: 11/25/23 08:02 11/25/23 08:02 Labs: Abnormal Lab Results - Last 24 Hours (Table) 11/25/23 11/25/23 Range/Units 11:33 20:18 POC Glucose (mg/dL) 133 H 115 H (70-110) mg/dL
[2023-11-26 10:41] VITALS: RESP 16
--- NOTE | 2023-11-26 12:24 | P.PN ---
Subjective Progress Note Date: 11/26/23 Pt is doing well today, tolerating diet. Abd cramping has improved. Gen: In NAD, non-toxic HEENT: normocephalic, atraumatic, hearing acuity is intant, mucous membranes moist CVS: perfusing all extremities well, no pitting edema, Respiratory: symmetric chest expansion, no accessory muscle use, GI: soft, NTTP, ND, : no suprapubic tenderness, no CVA tenderness MSK/Derm: no rashes, cyanosis Neuro: CN II-XII intact, no motor weakness, Psych: cooperative, euthymic mood, judgment and insight is intact Hospital course: Patient is a 68-year-old female with a past medical history of hypertension and stage III ovarian cancer who had debulking in May 2023 and is currently on adjuvant chemotherapy who presents to the ED with abdominal pain. Patient was in the ED yesterday and was treated for constipation with enema and discharged home on GoLytely. Patient only took 1 glass of GoLytely and did not have any solid stool so she returned back to the ED the next day. In the ED CT abdomen pelvis showed pneumoperitoneum and small and large bowel obstruction and also significant constipation. Also seen was moderate left-sided hydronephrosis. Patient was emergently taken to the OR and had sigmoidectomy with colostomy as well as drainage of pelvic abscess. Assessment and plan Colon perforation status post sigmoidectomy and colostomy creation Pelvic abscess drainage Peritonitis Patient admitted to the surgical service. Follow-up on cultures from surgery = E coli, pansensitive; Bacteroides species ID is following Patient on cefepime and Flagyl Diet as per primary team. Stage III uterine cancer Status post debulking in may 2023 Patient on adjuvant chemotherapy Hypertension Will hold off on losartan for now as blood pressure is on the low side Anemia Thrombocytopenia Suspect due to anemia chronic disease from malignancy and acute blood loss from surgery No overt signs of bleeding Monitor hemoglobin 1U PLTs transfused 11/17 epidural catheter per anesthesia was removed 11/17 DVT prophylaxis: Started on enoxaparin 40mg daily Objective - Vital Signs Vital signs: Vital Signs Temp 98.1 F 11/26/23 08:50 Pulse 86 11/26/23 08:50 Resp 16 11/26/23 08:50 BP 163/83 11/26/23 08:50 Pulse Ox 98 11/26/23 08:50 FiO2 Intake & Output 11/25/23 11/26/23 11/26/23 18:59 06:59 18:59 Intake Total 1178 Output Total 1350 Balance 1178 -1350 Weight 56.5 kg Intake: Intake, IV Titration 180 Amount Cefepime 2 gm In Sodium 100 Chloride 0.9% 100 ml @ 25 mls/hr IVPB Q8H [facility] Rx#: [id number] Sodium Chloride 0.9% 100 80 ml @ 0 mls/hr IV .STK-MED ONE with metroNIDAZOLE- NS PMX 500 mg Rx#: [id number] Oral 998 Output: Urine 1350 Other: Voiding Method External Catheter External Catheter External Catheter # Voids 1 # Bowel Movements 1 - Labs CBC & Chem 7: 11/25/23 08:02 11/25/23 08:02 Labs: Abnormal Lab Results - Last 24 Hours (Table) 11/25/23 Range/Units 20:18 POC Glucose (mg/dL) 115 H (70-110) mg/dL
[2023-11-26 20:13] LABS: Glucose,Whole Blood 120 mg/dL (70-110)
--- NOTE | 2023-11-26 22:59 | P.PN ---
Subjective Progress Note Date: 11/25/23 Principal diagnosis: Reason for follow-up is perforated colon and peritonitis Patient is a 68-year-old female with a past medical history significant for hypertension and sleep apnea osteoporosis, stage III ovarian cancer and did have debulking procedure in May 2023 currently on chemotherapy presenting to the hospital for evaluation of abdominal pain and constipation, patient did have evidence of pneumoperitoneum status post laparotomy sigmoid colectomy and end colostomy and drainage of the pelvic abscess. On today's evaluation that is 11/25/2023, Patient is afebrile this morning, the patient denies any chills, patient mention breathing comfortably and is currently on room air, patient denies any chest pain occasional cough patient denies any abdominal pain no diarrhea no nausea no vomiting, mention feeling better Patient white count is 7.5, creatinine 0.43 Objective - Vital Signs Vital signs: Vital Signs Temp 98.1 F 11/25/23 08:53 Pulse 80 11/25/23 08:53 Resp 16 11/25/23 08:53 BP 168/72 11/25/23 08:53 Pulse Ox 98 11/25/23 08:53 FiO2 Intake & Output 11/24/23 11/25/23 11/25/23 18:59 06:59 18:59 Intake Total 340 Output Total 220 Balance 340 -220 Intake: Intake, IV Titration 100 Amount Cefepime 2 gm In Sodium 100 Chloride 0.9% 100 ml @ 25 mls/hr IVPB Q8H [facility] Rx#: [id number] Oral 240 Output: Drainage 20 Right Abdomen 20 Stool 200 Other: Voiding Method External Catheter External Catheter # Voids 1 - Exam Elderly female lying in bed in no distress Respiratory system unlabored breathing Patient is awake alert oriented x 3 no distress - Labs CBC & Chem 7: 11/25/23 08:02 11/25/23 08:02 Labs: Abnormal Lab Results - Last 24 Hours (Table) 11/24/23 11/24/23 11/24/23 Range/Units 11:27 11:27 11:39 RBC 2.36 L (3.80-5.40) m/uL Hgb 8.1 L (11.4-16.0) gm/dL Hct 24.7 L (34.0-46.0) % MCV 104.7 H (80.0-100.0) fL RDW 17.5 H (11.5-15.5) % Plt Count 62 L (150-450) k/uL Potassium 3.3 L (3.5-5.1) mmol/L Chloride 108 H (98-107) mmol/L Creatinine 0.43 L (0.52-1.04) mg/dL Glucose 110 H (74-99) mg/dL POC Glucose (mg/dL) 122 H (70-110) mg/dL Calcium 7.7 L (8.4-10.2) mg/dL Total Protein 4.6 L (6.3-8.2) g/dL Albumin 2.2 L (3.5-5.0) g/dL 11/24/23 11/24/23 11/25/23 Range/Units 16:59 20:29 08:02 RBC 2.17 L (3.80-5.40) m/uL Hgb 7.4 L (11.4-16.0) gm/dL Hct 22.7 L (34.0-46.0) % MCV 104.6 H (80.0-100.0) fL RDW 18.0 H (11.5-15.5) % Plt Count 67 L (150-450) k/uL Potassium (3.5-5.1) mmol/L Chloride (98-107) mmol/L Creatinine (0.52-1.04) mg/dL Glucose (74-99) mg/dL POC Glucose (mg/dL) 120 H 118 H (70-110) mg/dL Calcium (8.4-10.2) mg/dL Total Protein (6.3-8.2) g/dL Albumin (3.5-5.0) g/dL 11/25/23 Range/Units 08:02 RBC (3.80-5.40) m/uL Hgb (11.4-16.0) gm/dL Hct (34.0-46.0) % MCV (80.0-100.0) fL RDW (11.5-15.5) % Plt Count (150-450) k/uL Potassium (3.5-5.1) mmol/L Chloride 108 H (98-107) mmol/L Creatinine 0.43 L (0.52-1.04) mg/dL Glucose (74-99) mg/dL POC Glucose (mg/dL) (70-110) mg/dL Calcium 7.9 L (8.4-10.2) mg/dL Total Protein 4.6 L (6.3-8.2) g/dL Albumin 2.2 L (3.5-5.0) g/dL Assessment and Plan (1) Peritonitis Current Visit: Yes Status: Acute Priority: High Code(s): K65.9 - PERITONITIS, UNSPECIFIED SNOMED Code(s): 16343061 (2) Penicillin allergy Current Visit: Yes Status: Acute Code(s): Z88.0 - ALLERGY STATUS TO PENICILLIN SNOMED Code(s): 66913306 (3) Pneumoperitoneum Current Visit: Yes Status: Acute Priority: High Code(s): K66.8 - OTHER SPECIFIED DISORDERS OF PERITONEUM SNOMED Code(s): 42289810 Plan: 1patient presented to the hospital with abdominal pain has been diagnosed with a perforated colon status post laparotomy sigmoid colectomy and drainage of the intra-abdominal abscess we will need to cover for the enteric gram-negative both aerobes and anaerobes 2-patient with a penicillin allergy many years ago subsequently has taken amoxicillin without any problem clinical doubt true penicillin allergy 3-patient abdominal culture currently growing E. coli that is a sensitive pathogen along with Clostridium and Bacteroides, 4-patient remains to be afebrile white count has been normal, to continue with the cefepime Flagyl while inpatient transition to oral antibiotics on discharge Dictation was produced using [employer] dictation software. please excuse any grammatical, word or spelling errors. Time with Patient: Less than 30
--- NOTE | 2023-11-26 23:00 | P.PN ---
Subjective Progress Note Date: 11/26/23 Principal diagnosis: Reason for follow-up is perforated colon and peritonitis Patient is a 68-year-old female with a past medical history significant for hypertension and sleep apnea osteoporosis, stage III ovarian cancer and did have debulking procedure in May 2023 currently on chemotherapy presenting to the hospital for evaluation of abdominal pain and constipation, patient did have evidence of pneumoperitoneum status post laparotomy sigmoid colectomy and end colostomy and drainage of the pelvic abscess. On today's evaluation that is 11/26/2023,the patient denies any fever or any chills, patient is breathing comfortably on room air, the patient denies chest pain shortness of breath and no significant cough, patient denies abdominal pain, no nausea vomiting and did have output in her colostomy bag overall feeling better. No new labs were obtained today Objective - Vital Signs Vital signs: Vital Signs Temp 98 F 11/26/23 04:00 Pulse 80 11/26/23 04:00 Resp 18 11/26/23 04:00 BP 134/88 11/26/23 04:00 Pulse Ox 97 11/26/23 04:00 FiO2 Intake & Output 11/25/23 11/26/23 11/26/23 18:59 06:59 18:59 Intake Total 1178 Output Total 1350 Balance 1178 -1350 Weight 56.5 kg Intake: Intake, IV Titration 180 Amount Cefepime 2 gm In Sodium 100 Chloride 0.9% 100 ml @ 25 mls/hr IVPB Q8H [facility] Rx#: [id number] Sodium Chloride 0.9% 100 80 ml @ 0 mls/hr IV .STK-MED ONE with metroNIDAZOLE- NS PMX 500 mg Rx#: [id number] Oral 998 Output: Urine 1350 Other: Voiding Method External Catheter External Catheter # Voids 1 # Bowel Movements 1 - Exam Elderly female lying in bed in no distress Respiratory system unlabored breathing Patient is awake alert oriented x 3 no distress - Labs CBC & Chem 7: 11/25/23 08:02 11/25/23 08:02 Labs: Abnormal Lab Results - Last 24 Hours (Table) 11/25/23 11/25/23 Range/Units 11:33 20:18 POC Glucose (mg/dL) 133 H 115 H (70-110) mg/dL Assessment and Plan (1) Peritonitis Current Visit: Yes Status: Acute Priority: High Code(s): K65.9 - PERITONITIS, UNSPECIFIED SNOMED Code(s): 82748707 (2) Penicillin allergy Current Visit: Yes Status: Acute Code(s): Z88.0 - ALLERGY STATUS TO PENICILLIN SNOMED Code(s): 08262468 (3) Pneumoperitoneum Current Visit: Yes Status: Acute Priority: High Code(s): K66.8 - OTHER SPECIFIED DISORDERS OF PERITONEUM SNOMED Code(s): 44596534 Plan: This is a telehealth visit 1patient presented to the hospital with abdominal pain has been diagnosed with a perforated colon status post laparotomy sigmoid colectomy and drainage of the intra-abdominal abscess we will need to cover for the enteric gram-negative both aerobes and anaerobes 2-patient with a penicillin allergy many years ago subsequently has taken amoxicillin without any problem clinical doubt true penicillin allergy 3-patient abdominal culture currently growing E. coli that is a sensitive pathogen along with Clostridium and Bacteroides, 4-patient remains to be afebrile white count has been normal, to continue with the cefepime Flagyl while inpatient, plan is to finish therapy with a 10-day course of oral Cipro and Flagyl prescription has been sent to the pharmacy Dictation was produced using [employer] dictation software. please excuse any grammatical, word or spelling errors. Time with Patient: Less than 30
--- NOTE | 2023-11-27 09:20 | P.PN ---
Subjective Progress Note Date: 11/27/23 Pt is doing well today, tolerating diet. Medically cleared for discharge Gen: In NAD, non-toxic HEENT: normocephalic, atraumatic, hearing acuity is intant, mucous membranes moist CVS: perfusing all extremities well, no pitting edema, Respiratory: symmetric chest expansion, no accessory muscle use, GI: soft, NTTP, ND, : no suprapubic tenderness, no CVA tenderness MSK/Derm: no rashes, cyanosis Neuro: CN II-XII intact, no motor weakness, Psych: cooperative, euthymic mood, judgment and insight is intact Hospital course: Patient is a 68-year-old female with a past medical history of hypertension and stage III ovarian cancer who had debulking in May 2023 and is currently on adjuvant chemotherapy who presents to the ED with abdominal pain. Patient was in the ED yesterday and was treated for constipation with enema and discharged home on GoLytely. Patient only took 1 glass of GoLytely and did not have any solid stool so she returned back to the ED the next day. In the ED CT abdomen pelvis showed pneumoperitoneum and small and large bowel obstruction and also significant constipation. Also seen was moderate left-sided hydronephrosis. Patient was emergently taken to the OR and had sigmoidectomy with colostomy as well as drainage of pelvic abscess. Assessment and plan Colon perforation status post sigmoidectomy and colostomy creation Pelvic abscess drainage Peritonitis Patient admitted to the surgical service. Follow-up on cultures from surgery = E coli, pansensitive; Bacteroides species ID is following Patient on cefepime and Flagyl Diet as per primary team. Stage III uterine cancer Status post debulking in may 2023 Patient on adjuvant chemotherapy Hypertension Will hold off on losartan for now as blood pressure is on the low side Anemia Thrombocytopenia Suspect due to anemia chronic disease from malignancy and acute blood loss from surgery No overt signs of bleeding Monitor hemoglobin 1U PLTs transfused 11/17 epidural catheter per anesthesia was removed 11/17 DVT prophylaxis: Started on enoxaparin 40mg daily Objective - Vital Signs Vital signs: Vital Signs Temp 98.2 F 11/27/23 08:00 Pulse 85 11/27/23 08:00 Resp 16 11/27/23 08:00 BP 121/73 11/27/23 08:00 Pulse Ox 96 11/27/23 08:00 FiO2 Intake & Output 11/26/23 11/27/23 11/27/23 18:59 06:59 18:59 Intake Total 120 358 Output Total 600 750 Balance -480 -750 358 Weight 56.4 kg Intake: Oral 120 358 Output: Urine 750 Stool 600 Other: Voiding Method External Catheter External Catheter # Voids 1 - Labs CBC & Chem 7: 11/25/23 08:02 11/25/23 08:02 Labs: Abnormal Lab Results - Last 24 Hours (Table) 11/26/23 Range/Units 20:12 POC Glucose (mg/dL) 120 H (70-110) mg/dL
[2023-11-27 12:36] VITALS: BMI 21.3
[2023-11-27 13:24] LABS: Anisocytosis Slight; Basophils % (A) 0 %; Eosinophils % (A) 0 %; HGB 8.1 gm/dL (11.4-16.0); Hypochromasia Slight; Lymphocytes # (A) 1.2 k/uL (1.0-4.8); Lymphocytes % (A) 16 %; MCH 34.4 pg (25.0-35.0); MCHC 32.4 g/dL (31.0-37.0); MCV 106.4 fL (80.0-100.0); Macrocytosis Marked; Mean Platelet Volume 10.2; Monocytes # (A) 0.3 k/uL (0-1.0); Monocytes % (A) 4 %; Neutrophils # (A) 5.8 k/uL (1.3-7.7); Neutrophils % (A) 77 %; RBC 2.35 m/uL (3.80-5.40); RDW 17.4 % (11.5-15.5); WBC 7.4 k/uL (3.8-10.6)
[2023-11-27 13:25] LABS: Platelet Count 92 k/uL (150-450)
[2023-11-27 13:38] VITALS: BP 125/77; PULSE 88; TEMP 97.5
--- NOTE | 2023-11-27 15:16 | P.PN ---
Subjective Progress Note Date: 11/27/23 Principal diagnosis: Reason for follow-up is perforated colon and peritonitis Patient is a 68-year-old female with a past medical history significant for hypertension and sleep apnea osteoporosis, stage III ovarian cancer and did have debulking procedure in May 2023 currently on chemotherapy presenting to the hospital for evaluation of abdominal pain and constipation, patient did have evidence of pneumoperitoneum status post laparotomy sigmoid colectomy and end colostomy and drainage of the pelvic abscess. On today's evaluation that is 11/27/2023,the patient remains to be afebrile, patient is on room air not requiring supplemental oxygen and denies any leyla rtness of breath no chest pain or cough.Patient did have some abdominal discomfort last night seem to be better this morning no nausea vomiting tolerating her food and did have output in her colostomy bag . Patient did have white count of 7.4 Objective - Vital Signs Vital signs: Vital Signs Temp 98.2 F 11/27/23 08:00 Pulse 85 11/27/23 08:00 Resp 16 11/27/23 08:00 BP 121/73 11/27/23 08:00 Pulse Ox 96 11/27/23 08:00 FiO2 Intake & Output 11/26/23 11/27/23 11/27/23 18:59 06:59 18:59 Intake Total 120 358 Output Total 600 750 Balance -480 -750 358 Weight 56.4 kg Intake: Oral 120 358 Output: Urine 750 Stool 600 Other: Voiding Method External Catheter External Catheter # Voids 1 - Exam Elderly female lying in bed in no distress Respiratory system unlabored breathing, clear to auscultation today Abdomen soft no tenderness Patient is awake alert oriented x 3 no distress Exam completed with the help of GARAGE DOOR TECHNICIAN - Labs CBC & Chem 7: 11/27/23 12:38 11/25/23 08:02 Labs: Abnormal Lab Results - Last 24 Hours (Table) 11/26/23 Range/Units 20:12 POC Glucose (mg/dL) 120 H (70-110) mg/dL Assessment and Plan (1) Peritonitis Current Visit: Yes Status: Acute Priority: High Code(s): K65.9 - DEDE TONITIS, UNSPECIFIED SNOMED Code(s): 30365544 (2) Penicillin allergy Current Visit: Yes Status: Acute Code(s): Z88.0 - ALLERGY STATUS TO PENICILLIN SNOMED Code(s): 86525617 (3) Pneumoperitoneum Current Visit: Yes Status: Acute Priority: High Code(s): K66.8 - OTHER SPECIFIED DISORDERS OF PERITONEUM SNOMED Code(s): 86802062 Plan: This is a telehealth visit 1patient presented to the hospital with abdominal pain has been diagnosed with a perforated colon status post laparotomy sigmoid colectomy and drainage of the intra-abdominal abscess we will need to cover for the enteric gram-negative both aerobes and anaerobes 2-patient with a penicillin allergy many years ago subsequently has taken amoxicillin without any problem clinical doubt true penicillin allergy 3-patient abdominal culture grew E. coli that is a sensitive pathogen along with Clostridium and Bacteroides, 4-patient remains to be afebrile white count has been normal, 5-plan is to finish therapy with a 10-day course of oral Cipro and Flagyl prescription has been sent to the pharmacy as of yesterday , continue with the cefepime and Flagyl while inpatient Dictation was produced using [employer] dictation software. please excuse any grammatical, word or spelling errors. Time with Patient: Less than 30
--- NOTE | 2023-11-27 15:17 | P.DS ---
Providers Date of admission: 11/16/23 12:53 Expected date of discharge: 11/27/23 Attending physician: Sebastian Mariscal Consults: 11/16/23 12:53 Consult Physician Routine Consulting Provider: Mustapha Baez Consult Reason/Comments: medicine consult Do you want consulting provider notified?: Already Contacted 11/16/23 19:14 Consult Physician Routine Consulting Provider: Carol Campos Consult Reason/Comments: Recent Avastin Do you want consulting provider notified?: Yes Consult Physician Routine Consulting Provider: Gage Hernandez Consult Reason/Comments: Perforated colon with chemotherapy Do you want consulting provider notified?: Yes Primary care physician: Aris Ross [facility] Course: Discharge diagnosis 1. Peritonitis with colon perforation status post sigmoid colectomy with end ostomy and drainage of pelvic abscess 2. History of stage III ovarian cancer Hospital course This is a 68-year-old female who presented with abdominal pain and constipation. Patient had evidence of pneumoperitoneum on CT scan. Patient was taken to the OR for colonic perforation. She is status post sigmoid colectomy with end ostomy and drainage of pelvic abscess. Patient's pain is controlled. Her ostomy is functioning. She is tolerating diet. She is afebrile. She has been up and ambulating. She is stable for discharge. Please refer to chart for any further details. Physician Heel Seat Fitter Machine note has been reviewed by physician. Signing provider agrees with the documented findings, assessment, and plan of care. Patient Condition at Discharge: Stable Plan - Discharge Summary Discharge Rx Participant: Yes New Discharge Prescriptions: New Ciprofloxacin HCl [Cipro] 500 mg PO BID 10 Days #20 tab Acetaminophen Tab [Tylenol Tab] 650 mg PO Q4H PRN #30 tablet PRN Reason: Pain metroNIDAZOLE [Flagyl] 500 mg PO TID #30 tab HYDROcodone/APAP 5-325MG [[place] 5-325] 1 tab PO Q6HR PRN 3 Days #6 tab PRN Reason: Analgesia Discontinued Valsartan 80 mg PO HS No Action Sennosides [Senokot] 8.6 mg PO HS Sennosides [Senokot] 8.6 mg PO DAILY PRN PRN Reason: Constipation polyethylene glycoL 3350 [Miralax] 17 gm PO DAILY polyethylene glycoL 3350 [Miralax] 17 gm PO HS PRN PRN Reason: Constipation Discharge Medication List Sennosides [Senokot] 8.6 mg PO DAILY PRN 11/16/23 [History] Sennosides [Senokot] 8.6 mg PO HS 11/16/23 [History] polyethylene glycoL 3350 [Miralax] 17 gm PO DAILY 11/16/23 [History] polyethylene glycoL 3350 [Miralax] 17 gm PO HS PRN 11/16/23 [History] Acetaminophen Tab [Tylenol Tab] 650 mg PO Q4H PRN #30 tablet 11/24/23 [Rx] Ciprofloxacin HCl [Cipro] 500 mg PO BID 10 Days #20 tab 11/26/23 [Rx] metroNIDAZOLE [Flagyl] 500 mg PO TID #30 tab 11/26/23 [Rx] HYDROcodone/APAP 5-325MG [[place]ison 5-325] 1 tab PO Q6HR PRN 3 Days #6 tab 11/27/23 [Rx] Follow up Appointment(s)/Referral(s): Sebastian Mariscal MD [Medical Doctor] - 12/07/23 9:20 am Aris Gee MD [Primary Care Provider] - 1-2 days Sami Kemp MD [STAFF PHYSICIAN] - 12/01/23 12:00 pm Gage Hernandez MD [STAFF PHYSICIAN] - 1 Week [facility] Visiting Nurse, [NON-STAFF] - Activity/Diet/Wound Care/Special Instructions: Ostomy: [place] one piece convex appliance #[id number], last changed 11/23/23 Empty when half full and change every 3 to 5 days and as needed for leaking No lifting over 10 pounds You may shower. No soaking or tub baths for 2 weeks Very light activity until you are reevaluated at your follow up appointment with your surgeon Keep a log of RAVI drain output and bring with you to your follow-up appointment Milk/strip drains 2-3 times a day Discharge Disposition: HOME WITH HOME HEALTH SERVICES
== END 2023-11-27 16:52 | disposition home health service (06) | DRG 329 ==
LOC: EC 04:20 → 3SCARD 12:53
PROVIDERS: ADMIT Surgery; ATTEND Surgery
PROC: 0DTN0ZZ Resection of Sigmoid Colon, Open Approach (ICD-10-PCS; principal; 2023-11-16 11:40)
PROC: 0D9670Z Drainage of Stomach with Drainage Device, Via Natural or Artificial Opening (ICD-10-PCS; principal; 2023-11-16 11:40)
PROC: 0D1M0Z4 Bypass Descending Colon to Cutaneous, Open Approach (ICD-10-PCS; principal; 2023-11-16 11:40)
PROC: 0W9G3ZZ Drainage of Peritoneal Cavity, Percutaneous Approach (ICD-10-PCS; principal; 2023-11-16 11:40)
PROC: 30233R1 Transfusion of Nonautologous Platelets into Peripheral Vein, Percutaneous Approach (ICD-10-PCS; 2023-11-18)
DX: K63.1 Perforation of intestine (nontraumatic) (principal); K65.9 Peritonitis, unspecified; L02.211 Cutaneous abscess of abdominal wall; D62 Acute posthemorrhagic anemia; C54.3 Malignant neoplasm of fundus uteri; Z85.43 Personal history of malignant neoplasm of ovary; I10 Essential (primary) hypertension; E87.6 Hypokalemia; C55 Malignant neoplasm of uterus, part unspecified; D69.6 Thrombocytopenia, unspecified; K56.41 Fecal impaction; M81.0 Age-related osteoporosis without current pathological fracture; G47.30 Sleep apnea, unspecified; Z79.899 Other long term (current) drug therapy; Z88.0 Allergy status to penicillin; Z90.710 Acquired absence of both cervix and uterus; K66.8 Other specified disorders of peritoneum; D63.0 Anemia in neoplastic disease
CPT/HCPCS: 36415; 74177; 80048; 80053; 83735; 84132; 85025; 86850; 86900; 86901; 87070; 87075; 87077; 87186; 87205; 88307; 94760; 96374; 99285

== ENCOUNTER → 2024-03-28 | Outpatient (CLI) | payer MEDICARE ==
[2024-03-28 18:59] LABS: Basophils # (A) 0.07 X 10*3/uL (0.00-0.10); Basophils % (A) 1.4 %; Eosinophils # (A) 0.12 X 10*3/uL (0.04-0.35); Eosinophils % (A) 2.3 %; HCT 37.8 % (37.2-46.3); HGB 12.6 g/dL (12.0-15.0); Lymphocytes # (A) 1.59 X 10*3/uL (0.90-5.00); Lymphocytes % (A) 31.1 %; MCH 34.3 pg (27.0-32.0); MCHC 33.3 g/dL (32.0-37.0); Mean Platelet Volume 11.4 FL (9.5-12.2); Monocytes # (A) 0.67 X 10*3/uL (0.20-1.00); Monocytes % (A) 13.1 %; NRBC Per 100 WBC 0.44 X 10*3/uL (0.00-0.01); Neutrophils # (A) 2.66 X 10*3/uL (1.80-7.70); Neutrophils % (A) 51.9 %; Platelet Count 325 X 10*3/uL (140-440); RBC 3.67 X 10*6/uL (4.10-5.20); RDW 19.7 % (11.5-14.5); WBC 5.12 X 10*3/uL (4.50-10.00)
[2024-03-28 19:41] LABS: BUN/Creat Ratio 24.12 Ratio (12.00-20.00); Blood Urea Nitrogen 19.3 mg/dL (9.0-27.0); Cancer Antigen 125 5.5 U/mL (0.0-30.1); Chloride 103 mmol/L (96-109); Glucose 88 mg/dL (70-110); LDL Cholesterol,Calculated 80.3 mg/dL (0.0-131.0); Magnesium 2.1 mg/dL (1.5-2.4); Potassium 4.3 mmol/L (3.5-5.5); Sodium 142 mmol/L (135-145)
[2024-03-28 19:42] LABS: ALT 39 U/L (8-44); AST 31 U/L (13-35); Albumin 4.4 g/dL (3.8-4.9); Albumin/Globulin Ratio 1.83 Ratio (1.60-3.17); Alkaline Phosphatase 56 U/L (41-126); Calcium 9.8 mg/dL (8.7-10.3); Carbon Dioxide 28.4 mmol/L (21.6-31.8); Globulin 2.4 g/dL (1.6-3.3); Total Bilirubin 0.3 mg/dL (0.3-1.2); Total Protein 6.8 g/dL (6.2-8.2)
[2024-03-28 20:02] LABS: Creatine Kinase 82 U/L (26-186)
== END | disposition home or self-care (01) ==
LOC: LABWHC1 12:21
PROVIDERS: ATTEND Family Medicine
CPT/HCPCS: 36415; 80053; 80061; 82550; 83036; 83735; 85025; 86304

== ENCOUNTER → 2024-03-28 | Outpatient (CLI) | payer MEDICARE ==
--- NOTE | 2024-04-01 09:24 | MM ---
Reason for Exam: Screening (asymptomatic). Last mammogram was performed 1 year(s) and 5 month(s) ago. Patient History: Menarche at age 11. First Full-Term at age 27. Postmenopausal. Maternal grandmother had breast cancer, age 70. Risk Values: Marilu 5 year model risk: 2.1%. NCI Lifetime model risk: 6.7%. Prior Study Comparison: 10/01/2020 Bilateral Screening Mammogram, [facility]. 10/25/2021 Bilateral Screening Mammogram, [facility]. 10/26/2022 Bilateral MG 3D screening mammo w/cad, [facility]. Tissue Density: There are scattered areas of fibroglandular density. Findings: Analyzed By CAD. Right breast: There is no suspicious group of microcalcifications or new suspicious mass. Benign-appearing calcifications right breast. Left breast: There is no suspicious group of microcalcifications or new suspicious mass. Benign-appearing calcifications left breast. Overall Assessment: Benign, BI-RAD 2 Management: Screening Mammogram of both breasts in [address] [facility] will attempt to contact patient to return for supplemental views and ultrasound if indicated. Patient should continue monthly self-breast exams. A clinical breast exam by your physician is recommended on an annual basis. This exam should not preclude additional follow-up of suspicious palpable abnormalities. Note on Marilu scores and lifetime risk: 1. A Marilu score greater than 3% is considered moderate risk. If this is the case, consider specialist referral to assess eligibility for a risk reducing agent. 2. If overall lifetime risk for the development of breast cancer is 20% or higher, the patient may qualify for future screening with alternating mammogram and breast MRI. [facility], , 04/01/2024 9:17 AM. Electronically signed and approved by: Masood Sawyer DO
== END | disposition home or self-care (01) ==
LOC: RADMAMWWP 14:16
PROVIDERS: ATTEND Family Medicine
CPT/HCPCS: 77063; 77067